=== PATIENT | female | born 1940 | race Asian ===

== ENCOUNTER → 2017-06-24 | Outpatient (CLI) | payer OTHER ==
[2017-06-24 15:03] LABS: BLOOD UREA NITROGEN 21 mg/dl (7-18); CALCIUM 8.4 mg/dl (8.5-10.1); CARBON DIOXIDE 28 mmol/L (21-32); CREATININE 1.17 mg/dl (0.60-1.20); GLUCOSE 130 mg/dl (70-99); POTASSIUM 3.6 mmol/L (3.5-5.1); SODIUM 135 mmol/L (136-145)
--- NOTE | 2017-07-02 11:38 | CODING QUERY NO DIAGNOSIS ---
: 1940 TREATMENT RENDERED WITHOUT A DIAGNOSIS To promote full compliance with coding requirements relating to patient care, physician participation is requested in all cases of direct mail coordinator uncertainty. Please assist us with providing a diagnosis/symptom for the test(s) below: A diagnosis/symptom was not documented on your Order. A valid diagnosis/symptom is required to bill all insurances. Please remember that we are unable to code a diagnosis of rule out, probable, possible, questionable, or suspected. Need original physician order. Tests that require a diagnosis: DOS: 06/24/17 * Basic Metabolic DIAGNOSIS: Provider Signature: Date: Thank you Hilda [facility] Information Management Once completed, please kindly fax back to [phone] For questions please call [phone]
== END | disposition home or self-care (01) ==
LOC: C.LABSPEC 14:42
DX: Z01.89 Encounter for other specified special examinations (principal)

== ENCOUNTER → 2017-08-26 | Outpatient (CLI) | payer OTHER | END | disposition home or self-care (01) | LOC: C.MAMM 15:25 | PROVIDERS: ATTEND Family Medicine | DX: M81.0 Age-related osteoporosis without current pathological fracture (principal); M85.851 Other specified disorders of bone density and structure, right thigh; M85.852 Other specified disorders of bone density and structure, left thigh ==

== ENCOUNTER → 2017-08-27 | Outpatient (CLI) | payer OTHER ==
--- NOTE | 2017-08-27 09:22 | DIAGNOSTIC IMAGING REPORT ---
R HAND MIN 3 VIEWS ROUTINE CLINICAL HISTORY: SEASONAL ALLERGIES pain COMPARISON: None. DISCUSSION: Considerable degenerative change of the distal interphalangeal joints of the first through third fingers. Mild degenerative change of the remaining osseous structures. Mild degenerative change of the radiocarpal and intercarpal joints. There is no evidence for soft tissue swelling. IMPRESSION: Considerable degenerative change of the first through third distal interphalangeal joints. Mild degenerative change of all remaining osseous structures. The appearance suggests osteoarthritic change. The above report was generated using voice recognition software. It may contain grammatical, syntax or spelling errors. Electronically signed by: Washington Frausto M.D. 08/27/2017 9:21 AM Dictated Date/Time: 08/27/2017 9:16 AM
--- NOTE | 2017-08-27 09:25 | DIAGNOSTIC IMAGING REPORT ---
L HAND MIN 3 VIEWS ROUTINE CLINICAL HISTORY: SEASONAL ALLERGIES pain COMPARISON: None. DISCUSSION: Considerable degenerative change distal interphalangeal joint of the thumb with moderate degenerative changes of the distal interphalangeal joints of the second through fifth fingers. Mild degenerative change of the remaining osseous structures throughout. Mild osteopenia. Partial degenerative subluxation of the distal phalanx of the distal phalanx of thumb in relation to the proximal. There is no evidence for soft tissue swelling. IMPRESSION: 1. Generalized degenerative change primarily of the distal interphalangeal joints. 2. Mild osteopenia. 3. Partial degenerative subluxation of the interphalangeal joint of the thumb. The above report was generated using voice recognition software. It may contain grammatical, syntax or spelling errors. Electronically signed by: Washington Frausto M.D. 08/27/2017 9:23 AM Dictated Date/Time: 08/27/2017 9:22 AM
[2017-08-27 09:31] LABS: BASO % 0.6 %; BASO ABS # 0.03 K/uL (0-0.2); EOS % 2.1 %; EOS ABS # 0.11 K/uL (0-0.5); HEMATOCRIT 37.8 % (37-47); HEMOGLOBIN 12.5 g/dL (12.0-16.0); IG# 0.01 K/uL (0.00-0.02); LYMPH % 33.1 %; LYMPH ABS # 1.77 K/uL (1.2-3.4); MEAN CELL VOLUME 99.5 fL (80-100); MEAN CORPUSCULAR HEMOGLOBIN 32.9 pg (25-34); MEAN CORPUSCULAR HGB CONC 33.1 g/dl (32-36); MEAN PLATELET VOLUME 9.4 fL (7.4-10.4); MONO ABS # 0.59 K/uL (0.11-0.59); NEUT ABS # 2.84 K/uL (1.4-6.5); PLATELET COUNT 222 K/uL (130-400); RED CELL DISTRIBUTION WIDTH CV 14.1 % (11.5-14.5); RED CELL DISTRIBUTION WIDTH SD 50.4 fL (36.4-46.3); WHITE BLOOD COUNT 5.35 K/uL (4.8-10.8)
[2017-08-27 10:05] LABS: ALBUMIN 3.8 gm/dl (3.4-5.0); ALT/SGPT 22 U/L (12-78); CREATININE 1.21 mg/dl (0.60-1.20)
[2017-08-27 10:08] LABS: ALKALINE PHOSPHATASE 74 U/L (45-117); AST/SGOT 15 U/L (15-37); TOTAL PROTEIN 7.5 gm/dl (6.4-8.2)
== END | disposition home or self-care (01) ==
LOC: C.RAD1850 08:48
PROVIDERS: ATTEND Internal Medicine Rheumatology
DX: J30.2 Other seasonal allergic rhinitis (principal)

== ENCOUNTER 2021-11-18 14:53 | Inpatient (IN) ==
--- NOTE | 2021-11-18 15:16 | Emergency Department Note ---
ED Provider Note NAME: MARILOU AGUIRRE AGE: 80 SEX: F : 1940 ARRIVES VIA: Walk-In INFORMANT: [Patient][, ] ED PROVIDER(S): [Jeramie Hodges MD] Chief Complaint: [] HPI: [] ROS: See HPI for pertinent positives and negatives. A total of 10 systems were reviewed and otherwise negative. Past medical history: See below Surgical history: See below Social history: See below Physical Exam: GENERAL: [Well appearing, well nourished,] NAD, [wearing glasses,][wearing a mask,] non-toxic. EYE EXAM: Normal conjunctiva. PERRL, no anisocoria and EOM's grossly intact w/o pain. [OROPHARYNX: Moist mucus membranes. Grossly normal dentition. [No exudate, posterior pharynx is clear, no tonsillar/uvular deviation or swelling. No cervical adenopathy, no submental, submandibular, or sublingual swelling.]] NECK: Supple, no nuchal rigidity, no adenopathy, non-tender. No signs of meningismus. [FROM of the neck with good chin to chest and neck extension. No stridor.] LUNGS: Clear to auscultation. Normal chest wall mechanics. HEART: NSR, no MRG. ABDOMEN: Abdomen soft, non-tender, normo-active bowel sounds, no masses, no rebound or guarding. BACK: No CVA TTP. SKIN: No rashes and no bruising. UPPER EXTREMITIES: Upper extremities are grossly normal. LOWER EXTREMITIES: Grossly normal, no edema. NEURO EXAM: A&O x3, cranial nerves II-XII grossly intact, normal speech, moves all 4 extremities on command w/o issue. [Good finger to nose, no drift, no sensory deficits.] Differential diagnoses: [] Course: Patient was seen and evaluated the bedside. Full history physical exam was performed. [EKG interpreted by me] [] Imaging Studies: See Below [Cardiac monitoring: An order was placed for continuous cardiac monitoring. The monitor shows a rate of [] with [] rhythm.] MDM: [] Past Med/Surg History Medical History Alzheimer disease Anorexia Dementia Generalized osteoarthritis of multiple sites Hallucinations HTN (hypertension) Osteoporosis Rheumatoid arthritis Seasonal allergies Vitamin D deficiency Family History Sister Dementia Social History Smoking Status: Never smoker Hx Alcohol Use: No Feels Safe at Home: Yes Allergies Allergies Allergy/AdvReac Type Severity Reaction Status Date / Time No Known Drug Allergies Allergy Unknown Unknown Uncoded 11/18/21 16:19 Home Meds Home Medications Medication Instructions Recorded Confirmed amlodipine 5 mg tablet 5 mg PO QAM PRN 08/18/19 11/18/21 aspirin 81 mg tablet,delayed 81 mg PO DAILY 08/18/19 11/18/21 release atorvastatin 10 mg tablet 10 mg PO DAILY 08/18/19 11/18/21 levocetirizine 5 mg tablet 5 mg PO DAILY 08/18/19 11/18/21 losartan 50 mg-hydrochlorothiazide 1 tab PO DAILY PRN 08/18/19 11/18/21 12.5 mg tablet metoprolol succinate 50 mg 50 mg PO DAILY 08/18/19 11/18/21 tablet,extended release 24 hr folic acid 1 mg tablet 1 mg PO DAILY 11/18/21 11/18/21 memantine 28 mg capsule 28 mg PO HS 11/18/21 11/18/21 sprinkle,extended release 24hr mirtazapine 15 mg tablet 15 mg PO HS 11/18/21 11/18/21 quetiapine 200 mg tablet 200 mg PO HS 11/18/21 11/18/21 quetiapine 50 mg tablet,extended 50 mg PO QAM 11/18/21 11/18/21 release 24 hr Previous Rx's Medication Instructions Recorded food supplemt, lactose-reduced 1 ea PO DAILY #5688 ml 11/21/20 (Ensure High Protein) pimavanserin 10 mg tablet 10 mg PO DAILY #90 tab 02/15/21 (Nuplazid) rivastigmine tartrate 1.5 mg 1.5 mg PO BID 90 Days #180 cap 02/15/21 capsule venlafaxine 150 mg 150 mg PO DAILY #90 cap 02/15/21 capsule,extended release 24 hr Results & Data (ED) Vital Signs Vital Signs - 24 hr 11/18/21 14:53 11/18/21 14:56 Temperature 36.5 C Temperature Source Temporal Artery Scan Pulse Rate 79 Respiratory Rate 18 Respiratory Effort / Characteristics Non-Labored Respiratory Depth Normal Normal Blood Pressure 149/86 H Blood Pressure Mean 107 Pulse Oximetry 94 Oxygen Delivery Method Room Air Room Air Sepsis Recent Fever Within 48 Hours No Sepsis New/Unexplained Change in Mental Status No Sepsis Action Taken by Nursing No Action Required Home Medications Current Medication List: was personally reviewed by me Laboratory Data Result diagrams: 11/18/21 16:16 11/18/21 16:16 Administered Medications Morphine Sulfate (Morphine Sulfate 2 Mg/Ml Carp) 2 mg IV Q1H PRN PRN Reason: Moderate Pain (Rating 3,4,5,6) Stop: 12/02/21 15:21 Last Admin: 11/18/21 15:40 Dose: 2 mg Documented by: [id number] Imaging Data Radiologist's Impression: Hip/Pelvis X-Ray 11/18/21 15:22 XR hip LT 2V w pelvis CLINICAL HISTORY: L hip pain. Pain COMPARISON STUDY: No previous studies for comparison. TECHNIQUE: Pelvis and 2 left hip views FINDINGS: Bones: There is evidence for a transcervical fracture of the left femoral neck. The remaining bones are intact. There is no lytic or blastic lesion. Joints: The femoral head maintains its anatomic position within the acetabulum. There is coxa varus deformity present. Soft tissues: There is no focal soft tissue abnormality. There is no radiopaque foreign body. IMPRESSION: 1. Transcervical fracture of the left femoral neck with coxa varus deformity. ACT 112: Negative or not required by law. Electronically signed by: Kirill Maldonado M.D. 11/18/2021 4:18 PM Discharge Plan Forms Stand Alone Forms: My [facility] Prescriptions Prescriptions: No Action losartan-hydrochlorothiazide 50-12.5 mg tablet 1 tab PO DAILY PRN (Reason: Hypertension) RF: 0 amlodipine 5 mg tablet 5 mg PO QAM PRN (Reason: Hypertension) RF: 0 metoprolol succinate 50 mg tablet extended release 24 hr 50 mg PO DAILY RF: 0 atorvastatin 10 mg tablet 10 mg PO DAILY RF: 0 aspirin 81 mg tablet,delayed release (DR/EC) 81 mg PO DAILY RF: 0 levocetirizine 5 mg tablet 5 mg PO DAILY RF: 0 venlafaxine 150 mg capsule,extended release 24hr 150 mg PO DAILY Qty: 90 RF: 3 Nuplazid 10 mg tablet 10 mg PO DAILY Qty: 90 RF: 1 rivastigmine tartrate 1.5 mg capsule 1.5 mg PO BID 90 Days Qty: 180 RF: 1 Ensure High Protein Liquid 1 ea PO DAILY Qty: 5688 RF: 6 memantine 28 mg capsule,sprinkle,ER 24hr 28 mg PO HS RF: 0 folic acid 1 mg tablet 1 mg PO DAILY RF: 0 quetiapine 50 mg tablet extended release 24 hr 50 mg PO QAM RF: 0 mirtazapine 15 mg tablet 15 mg PO HS RF: 0 quetiapine 200 mg tablet 200 mg PO HS RF: 0 Referrals Referrals: Marcin Villanueva [Primary Care Provider] -
[2021-11-18] MEDS: MoRPHine SULFATE 2 MG/ML CARP IV PRN ×4 (15:40→23:21)
--- NOTE | 2021-11-18 16:20 | XRay Report ---
XR hip LT 2V w pelvis CLINICAL HISTORY: L hip pain. Pain COMPARISON STUDY: No previous studies for comparison. TECHNIQUE: Pelvis and 2 left hip views FINDINGS: Bones: There is evidence for a transcervical fracture of the left femoral neck. The remaining bones a re intact. There is no lytic or blastic lesion. Joints: The femoral head maintains its anatomic position within the acetabulum. There is coxa varus d eformity present. Soft tissues: There is no focal soft tissue abnormality. There is no radiopaque foreign body. IMPRESSION: 1. Transcervical fracture of the left femoral neck with coxa varus deformity. ACT 112: Negative or not required by law. Electronically signed by: Kirill Maldonado M.D. 11/18/2021 4:18 PM
[2021-11-18 16:35] LABS: Basophils # (auto) 0.01 K/uL (0-0.2); Basophils % (auto) 0.1 %; Eosinophils % (auto) 0.9 %; Hematocrit (blood only) 33.5 % (37-47); Immature Granulocytes # (auto) 0.03 K/uL (0.00-0.02); Immature Granulocytes % (auto) 0.3 %; Mean Corpuscular Hemoglobin 31.3 pg (25-34); Mean Corpuscular Hgb Conc 32.8 g/dL (32-36); Mean Corpuscular Volume 95.4 fL (80-100); Mean Platelet Volume 9.5 fL (7.4-10.4); Monocytes # (auto) 0.85 K/uL (0.11-0.59); Monocytes % (auto) 7.8 %; Neutrophils # (auto) 8.76 K/uL (1.4-6.5); Neutrophils % (auto) 79.9 %; Platelet Count 266 K/uL (130-400); RDW Coefficient of Variation 13.8 % (11.5-14.5); RDW Standard Deviation 48.1 fL (36.4-46.3); Red Blood Count 3.51 M/uL (4.2-5.4); White Blood Count 10.95 K/uL (4.8-10.8)
[2021-11-18 16:49] LABS: INR 0.9 (0.9-1.1); Partial Thromboplastin Ratio 0.8; Partial Thromboplastin Time 22.8 Seconds (21.0-31.0); Prothrombin Time 9.9 Seconds (9.0-12.0)
[2021-11-18 16:56] LABS: Alanine Aminotransferase 27 U/L (7-52); Albumin Globulin Ratio 1.1 (0.9-2); Alkaline Phosphatase 99 U/L (34-104); Anion Gap 8 (3-11); Aspartate Aminotransferase 25 U/L (13-39); BUN Creatinine Ratio 35.3 (10-20); Bilirubin,Total 0.4 mg/dl (0.2-1.0); Blood Urea Nitrogen 36 mg/dl (6-23); Calcium 9.4 mg/dl (8.5-10.1); Carbon Dioxide 27 mmol/L (21-32); Chloride 105 mmol/L (98-107); Est GFR (African American) 59.3 ml/min; Est GFR (Non-African American) 51.2 ml/min; Globulin 3.6 gm/dl (2.5-4.0); Glucose 88 mg/dl (70-99(Fasting)); Potassium 3.9 mmol/L (3.5-5.1); Sodium 140 mmol/L (136-145); Total Protein 7.6 gm/dl (6.0-8.3)
--- NOTE | 2021-11-18 17:07 | History & Physical Report ---
Date of Service November 18, 2021 Assessment & Plan (1) Closed left hip fracture: Plan: Mrs. Stratton is an 80 year old female with history of osteoporosis, dementia, rheumatoid arthritis, HTN and dementia admitted following a fall where she sustained a left hip fracture. 1. closed left hip fracture. transcervical fracture of the left femoral neck - transcervical facture of the left femoral neck - received 2mg IV morphine in the ED - pain control with 2mg IV morphine q4h - NPO for possible surgical intervention tomorrow. EKG done and reviewed. - appreciate orthopedic recommendations - PT/OT 2. osteoporosis - last DEXA in 2018 consistent with osteoporosis. No hx of frgaility fracture until now. - was previously on Prolia, but last dose was > 2 years ago - vitamin D level with AM blood work, replete if insufficient or deficient (Vitamin D level in December 2020 was 70) - she probably needs to resume anti-fracture medication post-hospitalization--was following with [facility] rheumatology for her osteoporosis. 3. dementia - followed by psychiatry in the outpatient setting (Dr. Stewart Madrigal) - continue home medications: memantine, venlafaxine 150mg daily, quetiapine ER 50mg, rivastigmine 1.5mg 4. HTN. - home medications: amlodipine 5mg, metoprolol ER 25mg, HCTZ-losartan 12.5-50mg - per son, they check her blood pressure and give medications based on what her blood pressure readings are at home - most recently, BPs have been on the low side so he has not been giving the amlodipine and HCTZ-losartan. - Will hold these in the hospital for now, but continue metoprolol. 5. rheumatoid arthritis - med list has sulfasalazine, but she has not been taking this regularly. - did not continue this for right now, but can restart in the post-operative period/as we are planning for discharge. 6. COVID--asymptomatic - positive on admission - COVID airborne precautions Dispo: pending ortho plan, PT/OT ordered for discharge planning. (2) HTN (hypertension): (3) Dementia: (4) Rheumatoid arthritis: (5) Osteoporosis: (6) COVID: History of Present Illness Chief Complaint: fall, left hip fracture Primary Care Provider: Marcin Villanueva Mrs. Stratton is an 80 year old female with history of osteoporosis, dementia, rheumatoid arthritis, HTN and dementia admitted following a fall where she sustained a left hip fracture. She lives at home with her son, his and their child. History was obtained from the son at the bedside (patient speaks Mandarian and her dementia makes it difficult to obtain an accurate history). Son heard a thud around 10am this morning. When he went upstairs, mom was on the ground. He suspects she may have fallen out of bed. He was able to get her up and she was able to partially ambulate. However, as the morning progressed, it was getting harder for her to ambulate. She is typically independent with ADLs and walks independently in the home. He does report that she tends to bump into things and will sustain small bruises here and there from that. On review of most recent Power Chart office note from November 2020, appears that patient has had a few falls per month and was in the office with concerns for needing a wheelchair due to ambulatory dysfunction. Per son, they check her blood pressure and give medications based on what her blood pressure readings are at home. Most recently, BPs have been on the low side so he has not been giving the amlodipine and HCTZ-losartan. If her blood pressure is very low, he will hold the metoprolol as well. No chest pain or noticeable exercise intolerance in the days leading up today. No changes in mental status. She does have a history of osteoporosis. DEXA in 2018 was consistent with osteoporosis. She has never had a fragility fractures that he is aware of, but on review of the notes in Power Chart, it sounds like she had a patellar fracture although unclear exactly when this happened. After the DEXA was done, she was getting Prolia injections and did not have any fractures while on Prolia. Son is not sure how many injections she had, but thinks it was more than 2. He thinks her last Prolia injection was before the COVID pandemic. He does not recall if she was ever on a bisphosphonate. Allergies Allergy/AdvReac Type Severity Reaction Status Date / Time No Known Drug Allergies Allergy Unknown Unknown Uncoded 11/18/21 16:19 Home Medications Medication Instructions Recorded Confirmed Type amlodipine 5 mg tablet 5 mg PO QAM PRN 08/18/19 11/18/21 History aspirin 81 mg tablet,delayed 81 mg PO DAILY 08/18/19 11/18/21 History release atorvastatin 10 mg tablet 10 mg PO DAILY 08/18/19 11/18/21 History levocetirizine 5 mg tablet 5 mg PO DAILY 08/18/19 11/18/21 History losartan 50 mg-hydrochlorothiazide 1 tab PO DAILY PRN 08/18/19 11/18/21 History 12.5 mg tablet metoprolol succinate 50 mg 50 mg PO DAILY 08/18/19 11/18/21 History tablet,extended release 24 hr food supplemt, lactose-reduced 1 ea PO DAILY #5688 ml 11/21/20 11/18/21 Rx (Ensure High Protein) pimavanserin 10 mg tablet 10 mg PO DAILY #90 tab 02/15/21 11/18/21 Rx (Nuplazid) rivastigmine tartrate 1.5 mg 1.5 mg PO BID 90 Days #180 cap 02/15/21 11/18/21 Rx capsule venlafaxine 150 mg 150 mg PO DAILY #90 cap 02/15/21 11/18/21 Rx capsule,extended release 24 hr folic acid 1 mg tablet 1 mg PO DAILY 11/18/21 11/18/21 History memantine 28 mg capsule 28 mg PO HS 11/18/21 11/18/21 History sprinkle,extended release 24hr mirtazapine 15 mg tablet 15 mg PO HS 11/18/21 11/18/21 History quetiapine 200 mg tablet 200 mg PO HS 11/18/21 11/18/21 History quetiapine 50 mg tablet,extended 50 mg PO QAM 11/18/21 11/18/21 History release 24 hr Past Med/Surg History Medical History (Updated 11/18/21 @ 17:46 by Esvin Carbajal DO) Alzheimer disease Anorexia Dementia Generalized osteoarthritis of multiple sites Hallucinations HTN (hypertension) Osteoporosis Rheumatoid arthritis Seasonal allergies Vitamin D deficiency Family History Sister Dementia Social History Smoking Status: Never smoker Hx Alcohol Use: No Feels Safe at Home: Yes Review of Systems Review of Systems: Per HPI Physical Exam Constitutional: WD/WN, vitals as above Eyes: PERRL, conjunctivae normal, anicteric sclerae Neck: normal visual inspection and trachea midline Respiratory: normal respiratory effort; no labored breathing Auscultation: lungs clear to auscultation bilaterally Cardiovascular: Rate/Rhythm: regular rate and regular rhythm Heart Sounds: normal S1 and normal S2 Extremities: no pedal edema Gastrointestinal (Abdomen): Inspection/Auscultation: abdomen normal to inspection and normal bowel sounds; abdomen not distended Percussion/Palpation: abdomen soft; abdomen nontender, no guarding and no hepatosplenomegaly Musculoskeletal: Hip: + deformity neurovascularly intact in the distal lower extremities. Skin: scattered ecchymosis in various stages of healing; erythematous plaque over the right medial ankle. Psychiatric: Orientation: alert and cooperative; + not oriented to place and + not oriented to time Apperance: appeared stated age Speech: normal rate/rhythm/volume of speech Results & Data Results & Data ([facility]) Vital Signs (Past 12 Hours) Vital Signs Temp Pulse Resp BP Pulse Ox 11/18/21 14:56 36.5 C 79 18 149/86 H 94 Code Status & VTE Plan Code Status DNR/DNI VTE Prophylaxis Plan VTE Prophylaxis will be ordered: Yes
[2021-11-18 19:06] LABS: Appearance Urine Cloudy (Clear); Bacteria Urine Automated 4+ (Negative); Bilirubin Urine Negative (Negative); Blood Urine Negative (Negative); Cast Urine Automated 0 /lpf (0-5); Color Urine Yellow; Glucose Urine UA Negative (Negative); Ketones Urine Negative (Negative); Leukocyte Esterase Urine Negative (Negative); Nitrite Urine Positive (Negative); Protein Urine Negative (Negative); RBC Urine Automated 0-4 /hpf (0-4); Specific Gravity Urine 1.021 (1.000-1.030); Urobilinogen Urine Negative (Negative)
--- NOTE | 2021-11-18 20:32 | Emergency Department Note ---
Impression & Plan Closed left hip fracture, COVID, Acute UTI ED Provider Note NAME: MARILOU AGUIRRE AGE: 80 SEX: F : 1940 ARRIVES VIA: Walk-In INFORMANT: Patient, ED PROVIDER(S): Jeramie Hodges MD Chief Complaint: Fall, hip pain HPI: Patient presents with son at bedside with whom the patient lives after a fall out of bed. The patient reportedly was complaining of some hip pain and was unable to be ambulatory at home. No reported additional symptoms at this time. The patient does not take any blood thinning medications other than a baby aspirin. The patient does have a known history of dementia. The majority of the history is obtained from the son at bedside. No reported complaints of headache. The patient had fallen out of bed in the son had heard a thud in the other room. She is at her virtual baseline. Does not believe that she sustained a head or neck injury. The patient has had bruising to the left hand and wrist area which is old and not from today's incident. No vomiting. The patient's not complain of any back pain or abdominal pain. No shortness of breath or chest pain. ROS: See HPI for pertinent positives and negatives. A total of 10 systems were reviewed and otherwise negative. Past medical history: See below Surgical history: See below Social history: See below Physical Exam: GENERAL: NAD, wearing a mask, non-toxic. EYE EXAM: Normal conjunctiva. PERRL, no anisocoria and EOM's grossly intact w/o pain. Head: Normocephalic atraumatic with no TTP. NECK: Supple, no nuchal rigidity, no adenopathy, non-tender. No signs of meningismus. No midline C-spine TTP. LUNGS: Clear to auscultation. Normal chest wall mechanics. HEART: NSR, no MRG. ABDOMEN: Abdomen soft, non-tender, normo-active bowel sounds, no masses, no rebound or guarding. BACK: No CVA TTP. SKIN: No rashes and no bruising. UPPER EXTREMITIES: Upper extremities are grossly normal. LOWER EXTREMITIES: Left lower extremity is shortened compared to the right, neuro intact distally, decreased range of motion of the hip secondary to pain but is able to move the ankle and toes. NEURO EXAM: A&O x3, cranial nerves II-XII grossly intact, normal speech, moves all 4 extremities on command with exception of left lower extremity secondary to pain. Differential diagnoses: Fracture, subluxation, dislocation, contusion, ligamentous injury, neurovascular, compartment syndrome, rhabdomyolysis, as well as other pathologies. Course: Patient was seen and evaluated the bedside. Full history physical exam was performed. EKG interpreted by me Normal sinus rhythm, rate of 78, normal intervals, left axis, inversion in aVL and V2. Imaging Studies: See Below Cardiac monitoring: An order was placed for continuous cardiac monitoring. The monitor shows a rate of 82 with sinus rhythm. MDM: Patient was seen due to concern for fall. I did offer her CAT scans of the head and the neck but the patient's family at bedside does not think that she requires the use as he does not think that she struck her head and that her current neurologic baseline. Do not think it unreasonable. The patient does have an obvious left lower extremity deformity but is otherwise neuro intact. I did obtain blood work along with an x-ray. Patient does have all left surgical neck fracture. I did speak with the on-call orthopedist Dr. Ramirez who is aware. I did [place] the on-call hospitalist and the patient was admitted by Dr. Carbajal. Patient has a white count of 10.9 with mild anemia with a hemoglobin of 11. Kidney function with prerenal azotemia. The patient may have a concomitant UTI. Rocephin ordered. The patient is positive for COVID. Past Med/Surg History Medical History Alzheimer disease Anorexia Dementia Generalized osteoarthritis of multiple sites Hallucinations HTN (hypertension) Osteoporosis Rheumatoid arthritis Seasonal allergies Vitamin D deficiency Family History Sister Dementia Social History Smoking Status: Never smoker Hx Alcohol Use: No Feels Safe at Home: Yes Allergies Allergies Allergy/AdvReac Type Severity Reaction Status Date / Time No Known Drug Allergies Allergy Unknown Unknown Uncoded 11/18/21 16:19 Home Meds Home Medications Medication Instructions Recorded Confirmed amlodipine 5 mg tablet 5 mg PO QAM PRN 08/18/19 11/18/21 aspirin 81 mg tablet,delayed 81 mg PO DAILY 08/18/19 11/18/21 release atorvastatin 10 mg tablet 10 mg PO DAILY 08/18/19 11/18/21 levocetirizine 5 mg tablet 5 mg PO DAILY 08/18/19 11/18/21 losartan 50 mg-hydrochlorothiazide 1 tab PO DAILY PRN 08/18/19 11/18/21 12.5 mg tablet metoprolol succinate 50 mg 50 mg PO DAILY 08/18/19 11/18/21 tablet,extended release 24 hr folic acid 1 mg tablet 1 mg PO DAILY 11/18/21 11/18/21 memantine 28 mg capsule 28 mg PO HS 11/18/21 11/18/21 sprinkle,extended release 24hr mirtazapine 15 mg tablet 15 mg PO HS 11/18/21 11/18/21 quetiapine 200 mg tablet 200 mg PO HS 11/18/21 11/18/21 quetiapine 50 mg tablet,extended 50 mg PO QAM 11/18/21 11/18/21 release 24 hr Previous Rx's Medication Instructions Recorded food supplemt, lactose-reduced 1 ea PO DAILY #5688 ml 11/21/20 (Ensure High Protein) pimavanserin 10 mg tablet 10 mg PO DAILY #90 tab 02/15/21 (Nuplazid) rivastigmine tartrate 1.5 mg 1.5 mg PO BID 90 Days #180 cap 02/15/21 capsule venlafaxine 150 mg 150 mg PO DAILY #90 cap 02/15/21 capsule,extended release 24 hr Results & Data (ED) Vital Signs Vital Signs - 24 hr 11/18/21 14:53 11/18/21 14:56 Temperature 36.5 C Temperature Source Temporal Artery Scan Pulse Rate 79 Respiratory Rate 18 Respiratory Effort / Characteristics Non-Labored Respiratory Depth Normal Normal Blood Pressure 149/86 H Blood Pressure Mean 107 Pulse Oximetry 94 Oxygen Delivery Method Room Air Room Air Sepsis Recent Fever Within 48 Hours No Sepsis New/Unexplained Change in Mental Status No Sepsis Action Taken by Nursing No Action Required Laboratory Data Result diagrams: 11/18/21 16:16 11/18/21 16:16 Lab Results 11/18/21 11/18/21 11/18/21 Range/Units 16:16 16:16 16:16 WBC 10.95 H (4.8-10.8) K/uL RBC 3.51 L (4.2-5.4) M/uL Hgb 11.0 L (12.0-16.0) g/dL Hct 33.5 L (37-47) % MCV 95.4 (80-100) fL MCH 31.3 (25-34) pg MCHC 32.8 (32-36) g/dL RDW Std Deviation 48.1 H (36.4-46.3) fL RDW Coeff of Tom 13.8 (11.5-14.5) % Plt Count 266 (130-400) K/uL MPV 9.5 (7.4-10.4) fL Immature Gran % (Auto) 0.3 % Neut % (Auto) 79.9 % Lymph % (Auto) 11.0 % Heard % (Auto) 7.8 % Eos % (Auto) 0.9 % Baso % (Auto) 0.1 % Neut # (Auto) 8.76 H (1.4-6.5) K/uL Lymph # (Auto) 1.20 (1.2-3.4) K/uL Heard # (Auto) 0.85 H (0.11-0.59) K/uL Eos # (Auto) 0.10 (0-0.5) K/uL Baso # (Auto) 0.01 (0-0.2) K/uL Immature Gran # (Auto) 0.03 H (0.00-0.02) K/uL PT 9.9 (9.0-12.0) Seconds INR 0.9 (0.9-1.1) APTT 22.8 (21.0-31.0) Seconds PTT Ratio 0.8 Sodium 140 (136-145) mmol/L Potassium 3.9 (3.5-5.1) mmol/L Chloride 105 (98-107) mmol/L Carbon Dioxide 27 (21-32) mmol/L Anion Gap 8 (3-11) BUN 36 H (6-23) mg/dl Creatinine 1.02 (0.6-1.2) mg/dl Est Cr Clr Drug Dosing Not Reportable Est GFR ( Amer) 59.3 ml/min Est GFR (Non-Af Amer) 51.2 ml/min BUN/Creatinine Ratio 35.3 H (10-20) Glucose 88 (70-99(Fasting)) mg/dl Calcium 9.4 (8.5-10.1) mg/dl Total Bilirubin 0.4 (0.2-1.0) mg/dl AST 25 (13-39) U/L ALT 27 (7-52) U/L Alkaline Phosphatase 99 (34-104) U/L Total Protein 7.6 (6.0-8.3) gm/dl Albumin 4.0 (3.4-5.0) gm/dl Globulin 3.6 (2.5-4.0) gm/dl Albumin/Globulin Ratio 1.1 (0.9-2) Urine Color Urine Appearance (Clear) Urine pH (4.5-7.5) Ur Specific [place] (1.000-1.030) Urine Protein (Negative) Urine Glucose (UA) (Negative) Urine Ketones (Negative) Urine Blood (Negative) Urine Nitrite (Negative) Urine Bilirubin (Negative) Urine Urobilinogen (Negative) Ur Leukocyte Esterase (Negative) Urine WBC (Auto) (0-5) /hpf Urine RBC (Auto) (0-4) /hpf U Hyaline Cast (Auto) (0-5) /lpf U Epithel Cells (Auto) (0-5) /lpf Urine Bacteria (Auto) (Negative) SARS-CoV-2, RNA, NAAT (NEGATIVE) 11/18/21 11/18/21 Range/Units 16:30 17:40 WBC (4.8-10.8) K/uL RBC (4.2-5.4) M/uL Hgb (12.0-16.0) g/dL Hct (37-47) % MCV (80-100) fL MCH (25-34) pg MCHC (32-36) g/dL RDW Std Deviation (36.4-46.3) fL RDW Coeff of Tom (11.5-14.5) % Plt Count (130-400) K/uL MPV (7.4-10.4) fL Immature Gran % (Auto) % Neut % (Auto) % Lymph % (Auto) % Heard % (Auto) % Eos % (Auto) % Baso % (Auto) % Neut # (Auto) (1.4-6.5) K/uL Lymph # (Auto) (1.2-3.4) K/uL Heard # (Auto) (0.11-0.59) K/uL Eos # (Auto) (0-0.5) K/uL Baso # (Auto) (0-0.2) K/uL Immature Gran # (Auto) (0.00-0.02) K/uL PT (9.0-12.0) Seconds INR (0.9-1.1) APTT (21.0-31.0) Seconds PTT Ratio Sodium (136-145) mmol/L Potassium (3.5-5.1) mmol/L Chloride (98-107) mmol/L Carbon Dioxide (21-32) mmol/L Anion Gap (3-11) BUN (6-23) mg/dl Creatinine (0.6-1.2) mg/dl Est Cr Clr Drug Dosing Est GFR ( Amer) ml/min Est GFR (Non-Af Amer) ml/min BUN/Creatinine Ratio (10-20) Glucose (70-99(Fasting)) mg/dl Calcium (8.5-10.1) mg/dl Total Bilirubin (0.2-1.0) mg/dl AST (13-39) U/L ALT (7-52) U/L Alkaline Phosphatase (34-104) U/L Total Protein (6.0-8.3) gm/dl Albumin (3.4-5.0) gm/dl Globulin (2.5-4.0) gm/dl Albumin/Globulin Ratio (0.9-2) Urine Color Yellow Urine Appearance Cloudy A (Clear) Urine pH 7.0 (4.5-7.5) Ur Specific [place] 1.021 (1.000-1.030) Urine Protein Negative (Negative) Urine Glucose (UA) Negative (Negative) Urine Ketones Negative (Negative) Urine Blood Negative (Negative) Urine Nitrite Positive A (Negative) Urine Bilirubin Negative (Negative) Urine Urobilinogen Negative (Negative) Ur Leukocyte Esterase Negative (Negative) Urine WBC (Auto) 1-5 (0-5) /hpf Urine RBC (Auto) 0-4 (0-4) /hpf U Hyaline Cast (Auto) 0 (0-5) /lpf U Epithel Cells (Auto) 5-10 H (0-5) /lpf Urine Bacteria (Auto) 4+ H (Negative) SARS-CoV-2, RNA, NAAT POSITIVE A* (NEGATIVE) Administered Medications Morphine Sulfate (Morphine Sulfate 2 Mg/Ml Carp) 2 mg IV Q1H PRN PRN Reason: Moderate Pain (Rating 3,4,5,6) Stop: 12/02/21 15:21 Last Admin: 11/18/21 17:44 Dose: 2 mg Documented by: [id number] Admin: 11/18/21 15:40 Dose: 2 mg Documented by: [id number] Imaging Data Radiologist's Impression: Hip/Pelvis X-Ray 11/18/21 15:22 XR hip LT 2V w pelvis CLINICAL HISTORY: L hip pain. Pain COMPARISON STUDY: No previous studies for comparison. TECHNIQUE: Pelvis and 2 left hip views FINDINGS: Bones: There is evidence for a transcervical fracture of the left femoral neck. The remaining bones are intact. There is no lytic or blastic lesion. Joints: The femoral head maintains its anatomic position within the acetabulum. There is coxa varus deformity present. Soft tissues: There is no focal soft tissue abnormality. There is no radiopaque foreign body. IMPRESSION: 1. Transcervical fracture of the left femoral neck with coxa varus deformity. ACT 112: Negative or not required by law. Electronically signed by: Kirill Maldonado M.D. 11/18/2021 4:18 PM Discharge Plan Visit Data Chief Complaint: Hip Pain Stated Complaint: LEFT HIP PAIN, FALL ED Provider: Jeramie Hodges Discharge Problem: Closed left hip fracture, COVID, Acute UTI Patient Disposition: Admitted As Inpatient Forms Stand Alone Forms: [facility] Prescriptions Prescriptions: No Action losartan-hydrochlorothiazide 50-12.5 mg tablet 1 tab PO DAILY PRN (Reason: Hypertension) RF: 0 amlodipine 5 mg tablet 5 mg PO QAM PRN (Reason: Hypertension) RF: 0 metoprolol succinate 50 mg tablet extended release 24 hr 50 mg PO DAILY RF: 0 atorvastatin 10 mg tablet 10 mg PO DAILY RF: 0 aspirin 81 mg tablet,delayed release (DR/EC) 81 mg PO DAILY RF: 0 levocetirizine 5 mg tablet 5 mg PO DAILY RF: 0 venlafaxine 150 mg capsule,extended release 24hr 150 mg PO DAILY Qty: 90 RF: 3 Nuplazid 10 mg tablet 10 mg PO DAILY Qty: 90 RF: 1 rivastigmine tartrate 1.5 mg capsule 1.5 mg PO BID 90 Days Qty: 180 RF: 1 Ensure High Protein Liquid 1 ea PO DAILY Qty: 5688 RF: 6 memantine 28 mg capsule,sprinkle,ER 24hr 28 mg PO HS RF: 0 folic acid 1 mg tablet 1 mg PO DAILY RF: 0 quetiapine 50 mg tablet extended release 24 hr 50 mg PO QAM RF: 0 mirtazapine 15 mg tablet 15 mg PO HS RF: 0 quetiapine 200 mg tablet 200 mg PO HS RF: 0 Referrals Referrals: Marcin Villanueva [Primary Care Provider] -
[2021-11-18] MEDS ORDERED: cefTRIAXone SODIUM 2,000 MG/70 ML BAG IV STA (20:36)
[2021-11-18] MEDS ORDERED: ACETAMINOPHEN 325 MG TAB PO PRN (22:27)
[2021-11-18] MEDS ORDERED: ONDANSETRON INJ 2 MG/ML 2 ML VIAL IV PRN (22:27)
[2021-11-18] MEDS: RIVASTIGMINE TARTRATE 1.5 MG CAP PO SCH (23:21)
[2021-11-19] MEDS: MoRPHine SULFATE 2 MG/ML CARP IV PRN ×3 (04:28→19:34)
[2021-11-19 06:18] LABS: Basophils # (auto) 0.01 K/uL (0-0.2); Basophils % (auto) 0.1 %; Eosinophils # (auto) 0.13 K/uL (0-0.5); Eosinophils % (auto) 1.4 %; Hematocrit (blood only) 33.5 % (37-47); Hemoglobin 11.3 g/dL (12.0-16.0); Immature Granulocytes # (auto) 0.01 K/uL (0.00-0.02); Immature Granulocytes % (auto) 0.1 %; Lymphocytes # (auto) 0.88 K/uL (1.2-3.4); Lymphocytes % (auto) 9.6 %; Mean Corpuscular Hemoglobin 31.5 pg (25-34); Mean Corpuscular Hgb Conc 33.7 g/dL (32-36); Mean Corpuscular Volume 93.3 fL (80-100); Mean Platelet Volume 9.5 fL (7.4-10.4); Monocytes # (auto) 0.82 K/uL (0.11-0.59); Neutrophils # (auto) 7.27 K/uL (1.4-6.5); Neutrophils % (auto) 79.8 %; Platelet Count 254 K/uL (130-400); RDW Coefficient of Variation 13.5 % (11.5-14.5); RDW Standard Deviation 46.6 fL (36.4-46.3); Red Blood Count 3.59 M/uL (4.2-5.4); White Blood Count 9.12 K/uL (4.8-10.8)
[2021-11-19 06:27] LABS: INR 0.9 (0.9-1.1)
[2021-11-19 06:51] LABS: Alanine Aminotransferase 24 U/L (7-52); Albumin Globulin Ratio 1.2 (0.9-2); Alkaline Phosphatase 97 U/L (34-104); Anion Gap 9 (3-11); Aspartate Aminotransferase 21 U/L (13-39); BUN Creatinine Ratio 33.8 (10-20); Bilirubin,Total 0.4 mg/dl (0.2-1.0); Blood Urea Nitrogen 26 mg/dl (6-23); Calcium 9.1 mg/dl (8.5-10.1); Carbon Dioxide 27 mmol/L (21-32); Chloride 103 mmol/L (98-107); Est GFR (African American) 83.3 ml/min; Est GFR (Non-African American) 71.9 ml/min; Globulin 3.4 gm/dl (2.5-4.0); Glucose 103 mg/dl (70-99(Fasting)); Potassium 3.6 mmol/L (3.5-5.1); Sodium 139 mmol/L (136-145); Total Protein 7.4 gm/dl (6.0-8.3)
--- NOTE | 2021-11-19 07:10 | Hospitalist Progress Note ---
Date of Service November 19, 2021 Assessment & Plan (1) Closed left hip fracture: Plan: Mrs. Stratton is an 80 year old female with history of osteoporosis, dementia, rheumatoid arthritis, HTN and dementia admitted following a fall where she sustained a left hip fracture. 1. closed left hip fracture / transcervical fracture of the left femoral neck - transcervical facture of the left femoral neck - pain control with 2mg IV morphine q4h - maintain NPO for surgical correction. EKG done and reviewed. - appreciate orthopedic consultation - PT/OT 2. osteoporosis - last DEXA in 2017 consistent with osteoporosis. No hx of fragility fracture until now. - was previously on Prolia, but last dose was > 2 years ago - vitamin D level with AM blood work, replete if insufficient or deficient (Vitamin D level in December 2020 was 70) - she probably needs to resume anti-fracture medication post-hospitalization--was following with [facility] rheumatology for her osteoporosis. 3. dementia - followed by psychiatry in the outpatient setting (Dr. Stewart Madrigal) - continue home medications: memantine, venlafaxine 150mg daily, quetiapine ER 50mg, rivastigmine 1.5mg 4. HTN. - home medications: amlodipine 5mg, metoprolol ER 25mg, HCTZ-losartan 12.5-50mg - per son, they check her blood pressure and give medications based on what her blood pressure readings are at home - most recently, BPs have been on the low side so he has not been giving the amlodipine and HCTZ-losartan. - Will hold these in the hospital for now, but continue metoprolol. 5. rheumatoid arthritis - med list has sulfasalazine, but she has not been taking this regularly. - did not continue this for right now, but can restart in the post-operative period/as we are planning for discharge. 6. COVID--asymptomatic - positive on admission - COVID airborne precautions Dispo: pending ortho plan, PT/OT ordered for discharge planning. Code: DNR/DNI PPX: SCDs Diet: NPO (2) HTN (hypertension): (3) Dementia: (4) Rheumatoid arthritis: (5) Osteoporosis: (6) COVID: Admission and Anticipated Discharge Date Admission Date: November 18, 2021 Supervising Physician Co-Signing Physician Notes resting in bed, reaching into the air some vitals noted nad breathing appears unlabored skin without pallor Age-related osteoporosis w/ current pathologic fracture of left femur - pain control, supportive care, for OR (+) urine culture - ?symptoms. did get 1 dose rocephin. given difficulty guaging symptoms will treat for short course covid - appears asymptomatic otherwise as above Subjective NAEO. Review of Systems Review of Systems: as per HPI Physical Exam Physical Exam: General: 80-year old female who is alert, oriented, and appears in no acute distress. HEENT: NCAT. - Eyes - Sclera are white, anicteric, and without injection. - Mouth - MMM - Neck - supple, no appreciable JVD Cardiac: Normal rate and regular rhythm; S1 and S2 present with no murmurs, rubs, or gallops. Pulmonary: Good respiratory effort with symmetric expansion of the chest. No use of accessory muscles. Lungs were clear to auscultation bilaterally with no crackles or wheezes. Abdominal: Normoactive bowel sounds. Abdomen was soft, nondistended, and non- tender to palpation. Extremities: Upper and lower extremities are warm and well perfused. Ankle strength 5/5 bilaterally. DP pulses 2+ bilaterally. Results & Data Results & Data ([facility]) Vital Signs (Past 12 Hours) Vital Signs Temp Pulse Pulse Resp BP BP Pulse Ox 11/18/21 22:30 36.6 C 77 18 153/84 H 96 11/18/21 22:00 76 17 11/18/21 21:50 75 21 11/18/21 21:40 81 17 11/18/21 21:30 75 15 122/71 11/18/21 21:00 75 23 151/81 H 11/18/21 20:30 77 17 165/96 H 11/18/21 20:00 76 19 151/79 H 95 11/18/21 19:30 79 20 162/116 H 92 Resident Activity Tracking Resident Involvement: Resident Care Provided Care Provided: Adult Hospital Medicine (1) Closed left hip fracture Encounter type: initial encounter Qualified Code(s): S72.002A - Fracture of unspecified part of neck of left femur, initial encounter for closed fracture
[2021-11-19] MEDS: ATORVASTATIN 10 MG TAB PO SCH (07:33)
[2021-11-19] MEDS: FOLIC ACID 1 MG TAB PO SCH (07:33)
[2021-11-19] MEDS: QUEtiapine FUMARATE 50 MG TABCR PO SCH ×2 (07:33→19:35)
[2021-11-19] MEDS: METOPROLOL SUCC 50MG EXT REL TAB PO SCH (07:33)
[2021-11-19] MEDS: VENLAFAXINE HCL XR 150 MG CAPXR PO SCH (07:33)
[2021-11-19] MEDS: RIVASTIGMINE TARTRATE 1.5 MG CAP PO SCH ×2 (07:33→19:35)
--- NOTE | 2021-11-19 11:12 | Orthopedic Consultation ---
Date of Consultation November 19, 2021 Assessment & Plan (1) Closed left hip fracture: Patient will require left hip cemented bipolar hemiarthroplasty. Scheduled for OR today with Dr. Ramirez -Consent obtained by son -NPO -Hold anticoagulants -Vitals and labs stable -Intra-op infection prophylaxis: 2grams Cefazolin -Obtain medical clearance -IV LR fluids -Void hr operations advisor to OR -Clip/prep left hip -TEDS/foot pumps non-operative leg intra-op -Consult case management for discharge planning. Family requesting also. Patient will likely require home health services or rehab -Plan discussed with Dr. Ramirez History of Present Illness Attending Physician: Abilio Keen DO History of Present Illness Patient is an 80-year-old female with past medical history significant for dementia, Alzheimer's, hypertension, hyperlipidemia, rheumatoid arthritis, status post right knee replacement 10 years ago, left knee patellar fracture 2016. Patient speaks Mandarin and an interpreter and translator was used during today's visit. However no history was provided today from the patient due to mentation. History was provided from patient's son and iwzyexod-tp-lip via phone call. Yesterday morning the patient had fallen from her bed to her floor. Her qgceqmys-ib-hfj reports that she stated her left hip hurt but she was still able to walk. For half the day she sat on the couch and still complained of pain so they brought her into the emergency department. Work-up was done and patient was found to have a left femoral neck fracture. The patient's family reports that she was walking on her own prior to her fall and was able to care for herself, including going to the bathroom by herself. The [id number] stated that she does have a walker but she never remembered to use it. She lives at home with her son and his . She does not require any stairs at their house. Her plwexzdx-np-smn says that she had a knee replacement 10 years ago in [facility] ([facility] and has not had any major issues since. She fractured her left patella in 2017. She was seen [place] [facility] and was treated conservatively. Nofcddwq-qc-yrd states she still has some difficulty walking from the previous fracture. She is on 81 mg aspirin daily. She has been n.p.o. Wnvzhymk-xa-ioh reports no known drug allergies. Allergies Allergy/AdvReac Type Severity Reaction Status Date / Time No Known Allergies Allergy Verified 11/18/21 22:38 Home Medications Medication Instructions Recorded Confirmed Type amlodipine 5 mg tablet 5 mg PO QAM PRN 08/18/19 11/18/21 History aspirin 81 mg tablet,delayed 81 mg PO DAILY 08/18/19 11/18/21 History release atorvastatin 10 mg tablet 10 mg PO DAILY 08/18/19 11/18/21 History levocetirizine 5 mg tablet 5 mg PO DAILY 08/18/19 11/18/21 History losartan 50 mg-hydrochlorothiazide 1 tab PO DAILY PRN 08/18/19 11/18/21 History 12.5 mg tablet metoprolol succinate 50 mg 50 mg PO DAILY 08/18/19 11/18/21 History tablet,extended release 24 hr food supplemt, lactose-reduced 1 ea PO DAILY #5688 ml 11/21/20 11/18/21 Rx (Ensure High Protein) pimavanserin 10 mg tablet 10 mg PO DAILY #90 tab 02/15/21 11/18/21 Rx (Nuplazid) rivastigmine tartrate 1.5 mg 1.5 mg PO BID 90 Days #180 cap 02/15/21 11/18/21 Rx capsule venlafaxine 150 mg 150 mg PO DAILY #90 cap 02/15/21 11/18/21 Rx capsule,extended release 24 hr folic acid 1 mg tablet 1 mg PO DAILY 11/18/21 11/18/21 History memantine 28 mg capsule 28 mg PO HS 11/18/21 11/18/21 History sprinkle,extended release 24hr mirtazapine 15 mg tablet 15 mg PO HS 11/18/21 11/18/21 History quetiapine 200 mg tablet 200 mg PO HS 11/18/21 11/18/21 History quetiapine 50 mg tablet,extended 50 mg PO QAM 11/18/21 11/18/21 History release 24 hr Patient History Medical History Alzheimer disease Anorexia Dementia Generalized osteoarthritis of multiple sites Hallucinations HTN (hypertension) Osteoporosis Rheumatoid arthritis Seasonal allergies Vitamin D deficiency Family History Sister Dementia Social History Smoking Status: Unknown if ever smoked Hx Alcohol Use: No Preferred Language: Mandarin Urdu Validation Leader Required: Yes Current Living Situation: Family Feels Safe at Home: Yes Review of Systems Review of Systems: Per HPI. Review of systems limited due to patient mentation Physical Exam Physical Exam: General: Patient is lying in bed, intermittently awake. Patient does not respond to verbal questioning. Patient has dementia and Alzheimer's Left lower extremity: Upon examination of the patient's left lower extremity t here is minor ecchymosis noted about her lateral thigh. Patient grimaces in pain upon palpation of femoral head. Her left lower extremity is shortened and internally rotated. Patient grimaces with logroll. Skin of the affected extremity is warm and pink with no signs of vascular lymphatic compromise. 2+ distal pulses are present. Neuro exam limited due to patient mentation. She is able to wiggle her toes. Results & Data ([facility]) Vital Signs (Past 12 Hours) Vital Signs Temp Pulse Resp BP Pulse Ox 11/19/21 07:37 36.6 C 89 22 149/84 H 97 Laboratory Results 11/19/21 11/19/21 11/19/21 Range/Units 05:49 05:49 05:49 WBC (4.8-10.8) K/uL RBC (4.2-5.4) M/uL Hgb (12.0-16.0) g/dL Hct (37-47) % MCV (80-100) fL MCH (25-34) pg MCHC (32-36) g/dL RDW Std Deviation (36.4-46.3) fL RDW Coeff of Tom (11.5-14.5) % Plt Count (130-400) K/uL MPV (7.4-10.4) fL Immature Gran % (Auto) % Neut % (Auto) % Lymph % (Auto) % [place] % (Auto) % Eos % (Auto) % Baso % (Auto) % Neut # (Auto) (1.4-6.5) K/uL Lymph # (Auto) (1.2-3.4) K/uL [place] # (Auto) (0.11-0.59) K/uL Eos # (Auto) (0-0.5) K/uL Baso # (Auto) (0-0.2) K/uL Immature Gran # (Auto) (0.00-0.02) K/uL PT 10.0 (9.0-12.0) Seconds INR 0.9 (0.9-1.1) APTT (21.0-31.0) Seconds PTT Ratio Sodium 139 (136-145) mmol/L Potassium 3.6 (3.5-5.1) mmol/L Chloride 103 (98-107) mmol/L Carbon Dioxide 27 (21-32) mmol/L Anion Gap 9 (3-11) BUN 26 H (6-23) mg/dl Creatinine 0.77 (0.6-1.2) mg/dl Est Cr Clr Drug Dosing Not Reportable Est GFR ( Amer) 83.3 ml/min Est GFR (Non-Af Amer) 71.9 ml/min BUN/Creatinine Ratio 33.8 H (10-20) Glucose 103 H (70-99(Fasting)) mg/dl Calcium 9.1 (8.5-10.1) mg/dl Total Bilirubin 0.4 (0.2-1.0) mg/dl AST 21 (13-39) U/L ALT 24 (7-52) U/L Alkaline Phosphatase 97 (34-104) U/L Total Protein 7.4 (6.0-8.3) gm/dl Albumin 4.0 (3.4-5.0) gm/dl Globulin 3.4 (2.5-4.0) gm/dl Albumin/Globulin Ratio 1.2 (0.9-2) 25-OH Vitamin D Total 65.2 (30-100) ng/ml Urine Color Urine Appearance (Clear) Urine pH (4.5-7.5) Ur Specific [place] (1.000-1.030) Urine Protein (Negative) Urine Glucose (UA) (Negative) Urine Ketones (Negative) Urine Blood (Negative) Urine Nitrite (Negative) Urine Bilirubin (Negative) Urine Urobilinogen (Negative) Ur Leukocyte Esterase (Negative) Urine WBC (Auto) (0-5) /hpf Urine RBC (Auto) (0-4) /hpf U Hyaline Cast (Auto) (0-5) /lpf U Epithel Cells (Auto) (0-5) /lpf Urine Bacteria (Auto) (Negative) SARS-CoV-2, RNA, NAAT (NEGATIVE) 11/19/21 11/18/21 11/18/21 Range/Units 05:49 17:40 16:30 WBC 9.12 (4.8-10.8) K/uL RBC 3.59 L (4.2-5.4) M/uL Hgb 11.3 L (12.0-16.0) g/dL Hct 33.5 L (37-47) % MCV 93.3 (80-100) fL MCH 31.5 (25-34) pg MCHC 33.7 (32-36) g/dL RDW Std Deviation 46.6 H (36.4-46.3) fL RDW Coeff of Tom 13.5 (11.5-14.5) % Plt Count 254 (130-400) K/uL MPV 9.5 (7.4-10.4) fL Immature Gran % (Auto) 0.1 % Neut % (Auto) 79.8 % Lymph % (Auto) 9.6 % [place] % (Auto) 9.0 % Eos % (Auto) 1.4 % Baso % (Auto) 0.1 % Neut # (Auto) 7.27 H (1.4-6.5) K/uL Lymph # (Auto) 0.88 L (1.2-3.4) K/uL [place] # (Auto) 0.82 H (0.11-0.59) K/uL Eos # (Auto) 0.13 (0-0.5) K/uL Baso # (Auto) 0.01 (0-0.2) K/uL Immature Gran # (Auto) 0.01 (0.00-0.02) K/uL PT (9.0-12.0) Seconds INR (0.9-1.1) APTT (21.0-31.0) Seconds PTT Ratio Sodium (136-145) mmol/L Potassium (3.5-5.1) mmol/L Chloride (98-107) mmol/L Carbon Dioxide (21-32) mmol/L Anion Gap (3-11) BUN (6-23) mg/dl Creatinine (0.6-1.2) mg/dl Est Cr Clr Drug Dosing Est GFR ( Amer) ml/min Est GFR (Non-Af Amer) ml/min BUN/Creatinine Ratio (10-20) Glucose (70-99(Fasting)) mg/dl Calcium (8.5-10.1) mg/dl Total Bilirubin (0.2-1.0) mg/dl AST (13-39) U/L ALT (7-52) U/L Alkaline Phosphatase (34-104) U/L Total Protein (6.0-8.3) gm/dl Albumin (3.4-5.0) gm/dl Globulin (2.5-4.0) gm/dl Albumin/Globulin Ratio (0.9-2) 25-OH Vitamin D Total (30-100) ng/ml Urine Color Yellow Urine Appearance Cloudy A (Clear) Urine pH 7.0 (4.5-7.5) Ur Specific [place] 1.021 (1.000-1.030) Urine Protein Negative (Negative) Urine Glucose (UA) Negative (Negative) Urine Ketones Negative (Negative) Urine Blood Negative (Negative) Urine Nitrite Positive A (Negative) Urine Bilirubin Negative (Negative) Urine Urobilinogen Negative (Negative) Ur Leukocyte Esterase Negative (Negative) Urine WBC (Auto) 1-5 (0-5) /hpf Urine RBC (Auto) 0-4 (0-4) /hpf U Hyaline Cast (Auto) 0 (0-5) /lpf U Epithel Cells (Auto) 5-10 H (0-5) /lpf Urine Bacteria (Auto) 4+ H (Negative) SARS-CoV-2, RNA, NAAT POSITIVE A* (NEGATIVE) 11/18/21 11/18/21 11/18/21 Range/Units 16:16 16:16 16:16 WBC 10.95 H (4.8-10.8) K/uL RBC 3.51 L (4.2-5.4) M/uL Hgb 11.0 L (12.0-16.0) g/dL Hct 33.5 L (37-47) % MCV 95.4 (80-100) fL MCH 31.3 (25-34) pg MCHC 32.8 (32-36) g/dL RDW Std Deviation 48.1 H (36.4-46.3) fL RDW Coeff of Tom 13.8 (11.5-14.5) % Plt Count 266 (130-400) K/uL MPV 9.5 (7.4-10.4) fL Immature Gran % (Auto) 0.3 % Neut % (Auto) 79.9 % Lymph % (Auto) 11.0 % [place] % (Auto) 7.8 % Eos % (Auto) 0.9 % Baso % (Auto) 0.1 % Neut # (Auto) 8.76 H (1.4-6.5) K/uL Lymph # (Auto) 1.20 (1.2-3.4) K/uL [place] # (Auto) 0.85 H (0.11-0.59) K/uL Eos # (Auto) 0.10 (0-0.5) K/uL Baso # (Auto) 0.01 (0-0.2) K/uL Immature Gran # (Auto) 0.03 H (0.00-0.02) K/uL PT 9.9 (9.0-12.0) Seconds INR 0.9 (0.9-1.1) APTT 22.8 (21.0-31.0) Seconds PTT Ratio 0.8 Sodium 140 (136-145) mmol/L Potassium 3.9 (3.5-5.1) mmol/L Chloride 105 (98-107) mmol/L Carbon Dioxide 27 (21-32) mmol/L Anion Gap 8 (3-11) BUN 36 H (6-23) mg/dl Creatinine 1.02 (0.6-1.2) mg/dl Est Cr Clr Drug Dosing Not Reportable Est GFR ( Amer) 59.3 ml/min Est GFR (Non-Af Amer) 51.2 ml/min BUN/Creatinine Ratio 35.3 H (10-20) Glucose 88 (70-99(Fasting)) mg/dl Calcium 9.4 (8.5-10.1) mg/dl Total Bilirubin 0.4 (0.2-1.0) mg/dl AST 25 (13-39) U/L ALT 27 (7-52) U/L Alkaline Phosphatase 99 (34-104) U/L Total Protein 7.6 (6.0-8.3) gm/dl Albumin 4.0 (3.4-5.0) gm/dl Globulin 3.6 (2.5-4.0) gm/dl Albumin/Globulin Ratio 1.1 (0.9-2) 25-OH Vitamin D Total (30-100) ng/ml Urine Color Urine Appearance (Clear) Urine pH (4.5-7.5) Ur Specific [place] (1.000-1.030) Urine Protein (Negative) Urine Glucose (UA) (Negative) Urine Ketones (Negative) Urine Blood (Negative) Urine Nitrite (Negative) Urine Bilirubin (Negative) Urine Urobilinogen (Negative) Ur Leukocyte Esterase (Negative) Urine WBC (Auto) (0-5) /hpf Urine RBC (Auto) (0-4) /hpf U Hyaline Cast (Auto) (0-5) /lpf U Epithel Cells (Auto) (0-5) /lpf Urine Bacteria (Auto) (Negative) SARS-CoV-2, RNA, NAAT (NEGATIVE) Diagnostic Findings XR hip LT 2V w pelvis CLINICAL HISTORY: L hip pain. Pain COMPARISON STUDY: No previous studies for comparison. TECHNIQUE: Pelvis and 2 left hip views FINDINGS: Bones: There is evidence for a transcervical fracture of the left femoral neck. The remaining bones are intact. There is no lytic or blastic lesion. Joints: The femoral head maintains its anatomic position within the acetabulum. There is coxa varus deformity present. Soft tissues: There is no focal soft tissue abnormality. There is no radiopaque foreign body. IMPRESSION: 1. Transcervical fracture of the left femoral neck with coxa varus deformity. (1) Closed left hip fracture Encounter type: initial encounter Qualified Code(s): S72.002A - Fracture of unspecified part of neck of left femur, initial encounter for closed fracture
[2021-11-19] MEDS ORDERED: BUPIVACAINE 0.5 % 5 MG/1 ML PF 10ML VIAL ONE (11:20)
[2021-11-19] MEDS ORDERED: SODIUM CHLORIDE 0.9% 500 ML IV SCH (12:45)
[2021-11-19] MEDS ORDERED: ORTHO JOINT ANESTHETIC ONE ×2 (12:47→14:24)
[2021-11-19] MEDS ORDERED: ceFAZolin 330 MG/ML 1 GM VIAL ONE (12:47)
[2021-11-19] MEDS ORDERED: THROMBIN FOR SOLN 20000 UNIT KIT ONE (12:48)
--- NOTE | 2021-11-19 13:03 | Billing Data ---
Date of Service November 19, 2021 Coding Level of Care Code 20962 Subseq Hosp Care Lvl 1
[2021-11-19] MEDS ORDERED: MIDAZOLAM HCL 1 MG/ML 2ML VIAL ONE (13:40)
[2021-11-19] MEDS ORDERED: LIDOCAINE 2% 2 ML VIAL/AMP(20MG/ML) INFIL ONE (13:40)
[2021-11-19] MEDS ORDERED: fentaNYL citrate 100 MCG/2 ML VIAL ONE (13:40)
[2021-11-19] MEDS ORDERED: ONDANSETRON INJ 2 MG/ML 2 ML VIAL ONE (13:41)
[2021-11-19] MEDS ORDERED: PROPOFOL IV EMULSION 10 MG/ML 20 ML VIAL IV ONE (13:41)
[2021-11-19] MEDS ORDERED: ePHEDrine sulfate 50 MG/ML AMP ONE (13:41)
[2021-11-19] MEDS ORDERED: PHENYLEPHRINE HCL 10 MG/ML VIAL ONE (13:41)
--- NOTE | 2021-11-19 14:05 | Electrocardiogram Report ---
Test Reason : Blood Pressure : / mmHG Vent. Rate : 078 BPM Atrial Rate : 078 BPM P-R Int : 154 ms QRS Dur : 082 ms QT Int : 398 ms P-R-T Axes : 022 -15 074 degrees QTc Int : 453 ms Normal sinus rhythm Septal infarct , age undetermined Abnormal ECG No previous ECGs available Confirmed by Marco Antonio Hall ([id number]) on 11/19/2021 2:05:00 PM Referred By: REFERRED SELF Confirmed By:Marco Antonio Hall
[2021-11-19] MEDS ORDERED: BUPIVACAINE 0.5 % 5 MG/1 ML MPF 30ML VIAL ONE (14:24)
[2021-11-19] MEDS ORDERED: TRANEXAMIC ACID / 0.7% NACL 1000MG/100ML BAG IV ONE (14:28)
[2021-11-19] MEDS ORDERED: fentaNYL citrate 100 MCG/2 ML VIAL IV PRN (15:17)
[2021-11-19] MEDS ORDERED: ATROPINE SULFATE 0.1 MG/ML 10ML SYR IV PRN (15:17)
[2021-11-19] MEDS ORDERED: ePHEDrine sulfate 50 MG/ML AMP IV PRN (15:17)
[2021-11-19] MEDS ORDERED: ONDANSETRON INJ 2 MG/ML 2 ML VIAL IV PRN ×2 (15:17→16:50)
--- NOTE | 2021-11-19 15:17 | Anesthesiology Consultation ---
Date of Service November 19, 2021 Assessment & Plan Chart Review Chart Review: Acceptable Risk for Surgery and Patient NOT seen in Pre Admission Testing Consults Requested none ASA ASA4 Proposed Anesthesia Anesthesia Type: MAC Spinal Risk / Benefits Reviewed With: PT / POA / Parent / Guardian, Accepts Plan and Informed Consent Obtained History Surgery Operation Date: 11/19/21 09:00 Proposed Procedures p Left Cemented Bipolar Hemiarthroplasty - Ricco Ramirez MD Height/Weight Weight: 65 kg Allergies Allergy/AdvReac Type Severity Reaction Status Date / Time No Known Allergies Allergy Verified 11/18/21 22:38 Medications Home Medications Medication Instructions Recorded Confirmed Last Taken amlodipine 5 mg tablet 5 mg PO QAM PRN 08/18/19 11/18/21 Unknown aspirin 81 mg tablet,delayed 81 mg PO DAILY 08/18/19 11/18/21 Unknown release atorvastatin 10 mg tablet 10 mg PO DAILY 08/18/19 11/18/21 Unknown levocetirizine 5 mg tablet 5 mg PO DAILY 08/18/19 11/18/21 Unknown losartan 50 mg-hydrochlorothiazide 1 tab PO DAILY PRN 08/18/19 11/18/21 Unknown 12.5 mg tablet metoprolol succinate 50 mg 50 mg PO DAILY 08/18/19 11/18/21 Unknown tablet,extended release 24 hr food supplemt, lactose-reduced 1 ea PO DAILY #5688 ml 11/21/20 11/18/21 Unknown (Ensure High Protein) pimavanserin 10 mg tablet 10 mg PO DAILY #90 tab 02/15/21 11/18/21 Unknown (Nuplazid) rivastigmine tartrate 1.5 mg 1.5 mg PO BID 90 Days #180 cap 02/15/21 11/18/21 Unknown capsule venlafaxine 150 mg 150 mg PO DAILY #90 cap 02/15/21 11/18/21 Unknown capsule,extended release 24 hr folic acid 1 mg tablet 1 mg PO DAILY 11/18/21 11/18/21 Unknown memantine 28 mg capsule 28 mg PO HS 11/18/21 11/18/21 Unknown sprinkle,extended release 24hr mirtazapine 15 mg tablet 15 mg PO HS 11/18/21 11/18/21 Unknown quetiapine 200 mg tablet 200 mg PO HS 11/18/21 11/18/21 Unknown quetiapine 50 mg tablet,extended 50 mg PO QAM 11/18/21 11/18/21 Unknown release 24 hr Active Medications Generic Name Dose Route Start Last Admin Trade Name Freq PRN Reason Stop Dose Admin Atorvastatin Calcium 10 mg 11/19/21 09:00 11/19/21 07:33 Atorvastatin 10 Mg Tab PO 12/19/21 08:59 Not Given DAILY TANNER Folic Acid 1 mg 11/19/21 09:00 11/19/21 07:33 Folic Acid 1 Mg Tab PO 12/19/21 08:59 Not Given DAILY TANNER Sodium Chloride 500 mls @ 80 mls/hr 11/19/21 12:45 11/19/21 13:04 Nss IV 12/19/21 12:44 80 mls/hr .[id number] TANNER Administration Metoprolol Succinate 50 mg 11/19/21 09:00 11/19/21 07:33 Metoprolol Succ 50mg Ext Rel Tab PO 12/19/21 08:59 50 mg DAILY TANNER Administration Morphine Sulfate 2 mg 11/18/21 22:27 11/19/21 09:31 Morphine Sulfate 2 Mg/Ml Carp IV 12/02/21 22:26 2 mg Q4H PRN Administration Moderate Pain Quetiapine Fumarate 50 mg 11/19/21 09:00 11/19/21 07:33 Quetiapine Fumarate 50 Mg Tabcr PO 12/19/21 08:59 50 mg QAM TANNER Administration Rivastigmine Tartrate 1.5 mg 11/18/21 22:27 11/19/21 07:33 Rivastigmine Tartrate 1.5 Mg Cap PO 12/18/21 22:26 1.5 mg BID TANNER Administration Venlafaxine HCl 150 mg 11/19/21 09:00 11/19/21 07:33 Venlafaxine Hcl Xr 150 Mg Capxr PO 12/19/21 08:59 150 mg DAILY TANNER Administration NPO Date Last Intake of Fluids: 11/19/21 Time Last Intake of Fluids: 07:35 Last Intake of Fluids Comment: with pills Past Medical History Medical History Alzheimer disease Anorexia Dementia Generalized osteoarthritis of multiple sites Hallucinations HTN (hypertension) Osteoporosis Rheumatoid arthritis Seasonal allergies Vitamin D deficiency Exercise / Class Metabolic Activity II 4-5 Yardwork/Stairs/Walk up hill Past Family History Family History Sister Dementia Past Anesthesia History No Hx of Anesthesia Complications and No Family Hx of Anesthesia Complications History of PONV No Hx of PONV and No Hx of Motion Sickness Social History Smoking Status: Unknown if ever smoked Hx Alcohol Use: No Physical Exam Vital Signs Last Vital Signs Temp 36.6 C 11/19/21 07:37 Pulse 89 11/19/21 07:37 Resp 22 11/19/21 07:37 BP 149/84 H 11/19/21 07:37 Pulse Ox 97 11/19/21 07:37 ENMT Mouth: no dentition abnormality Thyromental Distance: > or= 3.5 Finger Breadths Mallampati Class: II Neck normal visual inspection Respiratory normal respiratory effort Auscultation: lungs clear to auscultation bilaterally Cardiovascular Rate/Rhythm: regular rate and regular rhythm Psychiatric dementia Testing Laboratory Results 11/19/21 05:49 11/19/21 05:49 PT 10.0 Seconds (9.0-12.0) 11/19/21 05:49 INR 0.9 (0.9-1.1) 11/19/21 05:49 APTT 22.8 Seconds (21.0-31.0) 11/18/21 16:16 Urine Color Yellow 11/18/21 17:40 Urine Appearance Cloudy (Clear) A 11/18/21 17:40 Urine pH 7.0 (4.5-7.5) 11/18/21 17:40 Ur Specific [place] 1.021 (1.000-1.030) 11/18/21 17:40 Urine Protein Negative (Negative) 11/18/21 17:40 Urine Glucose (UA) Negative (Negative) 11/18/21 17:40 Urine Ketones Negative (Negative) 11/18/21 17:40 Urine Nitrite Positive (Negative) A 11/18/21 17:40 Ur Leukocyte Esterase Negative (Negative) 11/18/21 17:40 Urine WBC (Auto) 1-5 /hpf (0-5) 11/18/21 17:40 Urine RBC (Auto) 0-4 /hpf (0-4) 11/18/21 17:40 U Hyaline Cast (Auto) 0 /lpf (0-5) 11/18/21 17:40 U Epithel Cells (Auto) 5-10 /lpf (0-5) H 11/18/21 17:40 Urine Bacteria (Auto) 4+ (Negative) H 11/18/21 17:40 11/18/21 17:40 Urine Culture - Preliminary Urine,Straight Cath Gram negative bacilli
--- NOTE | 2021-11-19 16:31 | Operative Report ---
Post Operative Report Pre & Post Diagnosis Operation Date: 11/19/21 09:00 Pre-Op Diagnosis: LEFT HIP DISPLACED FEMORAL NECK FRACTURE Post-Op Diagnosis: LEFT HIP DISPLACED FEMORAL NECK FRACTURE I identified the patient and participated in the time-out.: Yes Procedure Operation Date: 11/19/21 09:00 Actual Procedures p Left Cemented Bipolar Hemiarthroplasty(Left) - Ricco Ramirez MD Surgeon Ricco Ramirez MD Clinical Pharmacy Coordinator Ophelia Felipe MD and LUIS Hinojosa PA-C. Estimated Blood Loss 50 Findings Consistent with Post-Op Diagnosis Specimens Left femoral head Anesthesia Type Spinal MAC Complications none Disposition Disposition: Recovery Room Indications 80-year-old female presented to the emergency room yesterday with left hip pain and inability to ambulate. X-rays were done showing a displaced left femoral neck fracture. She was admitted to the internal medicine service. Orthopedics was consulted for further management. Patient was seen and examined today. She does have a medical history significant for dementia as well as a positive COVID test on admission. She is a non-Italian speaker; Sg is her ely shoshone tongue. Informed consent was obtained from the patient and her son Alek. They elected to proceed with surgery. All questions were answered. Informed consent was signed. Description of Procedure Patient was identified on the floor where her surgical site was marked. She was brought directly from the floor to operating room #1 where a spinal anesthetic was placed. She remained in the lateral decubitus position for 5 minutes to allow the spinal to set up. She was then moved over onto the operating room table and placed in the lateral decubitus position. Axillary roll was placed. All bony prominences were padded. Perioperative antibiotics were administered. She was prepped and draped in the usual sterile fashion. Prior to incision a multidisciplinary timeout was called. All in the room were in agreement. We began by making a 12 cm long incision for a posterior approach to the hip. I dissected down through subcutaneous tissues to the level of the fascia. Fascia was incised in line with the incision splitting the gluteus salvatore. Charnley bow was placed. Trochanteric bursa and fatty tissue was reflected posteriorly to expose the piriformis and short external rotators. An L-shaped capsulotomy was made to include the piriformis and short external rotators. Fracture was immediately visualized. We exposed the femoral neck down to the lesser trochanter. Femoral neck osteotomy was made using oscillating saw. Retractors were then placed inside the hip joint to expose the acetabulum. The fractured femoral head was removed with a corkscrew. This was sized on the back table to a 46. Ligamentum teres was removed with electrocautery. I then inserted the 46 sizer into the acetabulum. There was an excellent suction seal. Next we turned our attention to the femur. Box osteotome was used to remove the lateral neck. Intramedullary guide was used followed by the lateralizing reamer which would not seat. The rattail was used to remove some lateral bone. We then broached her to a size 2 [place] cemented femoral stem. We trialed with a +5 offset head. Her leg lengths were slightly too long so we redislocated and retracted with a +15 which gave us excellent symmetric leg lengths. There is no impingement in external rotation and extension. She was stable in the sleeper position. At 90 degrees of hip flexion she could be internally rotated 50 degrees before levering out of the cup. Next the trial femoral component was removed. The femoral canal was irrigated out and dried. The cement restrictor was placed down the canal. Cement was mixed on the back table. Cement was then injected and pressurized using thumb pressure. The stem was then inserted and held in approximately 25 degrees of anteversion until the cement had fully cured. Excess cement was removed. At this point the trunnion was irrigated and dried and cleaned. The real size 46 bipolar hemiarthroplasty outer shell was opened up as well as the polyethylene liner and the 28 mm inner head with a +1.5 offset. This was gently impacted onto the trunnion. The hip was atraumatically reduced. The wound was irrigated with copious amounts of dilute Betadine solution followed by sterile saline. 30 cc of half percent Marcaine was injected into the subcutaneous tissues for postoperative pain control. The piriformis short external rotators and posterior capsule were repaired using a single drill hole in the posterior aspect of the greater trochanter with the piriformis stitch coming up through the abductor tendon and the stitches tied to 1 another over the bone bridge of the greater trochanter. The fascia was run using a looped #1 PDS. The deep subcutaneous layer was closed with #1 PDS. Dermal layer was closed with 2-0 Vicryl. Dermabond and Zipline were used for the skin. Silverlon dressing was placed followed by a compressive dressing. Patient was then carefully rolled supine, hip abduction pillow was placed, and she was transferred recovery room in stable condition. Postoperative course: Patient be readmitted to the floor from the recovery room. She will be weightbearing as tolerated with posterior hip precautions. Aspirin for DVT prophylaxis is recommended. Compressive dressing will be removed tomor row and she can shower with her Silverlon dressing which should remain in place until her 2-week follow-up. I attest to the content of the Intraoperative Record and any orders documented therein. Any exceptions are noted below.
[2021-11-19] MEDS ORDERED: METOCLOPRAMIDE HCL INJ 5 MG/ML 2 ML VIAL IV PRN (16:50)
[2021-11-19] MEDS ORDERED: diphenhydrAMINE 50 MG/ML VIAL IV PRN (16:50)
[2021-11-19] MEDS ORDERED: ALUMINUM/MAGNESIUM SUSP 30 ML UDC PO PRN (16:50)
[2021-11-19] MEDS ORDERED: MAGNESIUM HYDROXIDE SUSP 30 ML UDC PO PRN (16:50)
[2021-11-19] MEDS ORDERED: bisacodyL 10 MG SUPP PR PRN (16:50)
[2021-11-19] MEDS ORDERED: NALOXONE HCL 0.4 MG/1 ML VIAL/CARP IV PRN (16:50)
--- NOTE | 2021-11-19 16:50 | Operative Report ---
Post Operative Report Pre & Post Diagnosis Operation Date: 11/19/21 09:00 Pre-Op Diagnosis: LEFT HIP FRACTURE Post-Op Diagnosis: LEFT HIP FRACTURE I identified the patient and participated in the time-out.: Yes Procedure Operation Date: 11/19/21 09:00 Actual Procedures p Left Cemented Bipolar Hemiarthroplasty(Left) - Ricco Ramirez MD Surgeon Ricco Ramirez MD Fabric Stretcher Ophelia Felipe MD and LUIS Hinojosa PA-C. Estimated Blood Loss 50 Findings Consistent with Post-Op Diagnosis Specimens femoral head Description of Procedure I was present during the entire case assisting with positioning, prepping, draping, wound retraction, wound closure, dressing and abduction pillow placement. Fellow also present. I served as an extra set of hands during the case. Please see Dr. Ramirez procedure note for specifics. I attest to the content of the Intraoperative Record and any orders documented therein. Any exceptions are noted below.
--- NOTE | 2021-11-19 16:51 | Operative Report ---
Post Operative Report Pre & Post Diagnosis Operation Date: 11/19/21 09:00 Pre-Op Diagnosis: LEFT HIP FRACTURE Post-Op Diagnosis: LEFT HIP FRACTURE I identified the patient and participated in the time-out.: Yes Procedure Operation Date: 11/19/21 09:00 Actual Procedures p Left Cemented Bipolar Hemiarthroplasty(Left) - Ricco Ramirez MD Surgeon Nahomy Ramirez MD Buttonhole Marker Ophelia Felipe MD and LUIS Hinojosa PA-C. Estimated Blood Loss 50 Findings Consistent with Post-Op Diagnosis Consistent with post op diagnosis. Specimens No specimens Description of Procedure I participated in prepping dressing and assisted Dr. Ramirez during the procedure. Please see Dr. Ramirez note. I attest to the content of the Intraoperative Record and any orders documented therein. Any exceptions are noted below.
[2021-11-19] MEDS ORDERED: amLODIPine BESYLATE 5 MG TAB PO PRN (16:53)
[2021-11-19] MEDS ORDERED: LOSARTAN/HCTZ 50/12.5MG TAB PO PRN (16:53)
--- NOTE | 2021-11-19 17:19 | XRay Report ---
XR pelvis 1-2V routine CLINICAL HISTORY: Post Surgical COMPARISON: Pelvis and left hip radiographs November 18, 2021. FINDINGS: Alignment of the left hip arthroplasty is anatomic. No periprosthetic fracture is present. There are no unexpected radiopaque foreign bodies. Foreshortening of the right femoral neck is likel y technical. Sacroiliac joints and symphysis pubis are intact. IMPRESSION: Expected findings following left hip arthroplasty. ACT 112: Negative or not required by law. Electronically signed by: Roby Krishna M.D. 11/19/2021 5:17 PM
[2021-11-19] MEDS: SODIUM CHLORIDE 0.9% 1000ML 1,000 ML IV SCH (18:29)
--- NOTE | 2021-11-19 18:33 | Anesthesiology Progress Note ---
Date of Service November 19, 2021 Anesthesia Post Procedure Vital Signs Vital Signs: Temp Pulse Pulse Pulse Resp BP BP 11/19/21 18:14 85 22 11/19/21 17:40 97.5 F L 73 20 11/19/21 17:20 97.5 F L 76 24 11/19/21 17:10 81 12 11/19/21 17:00 82 20 11/19/21 16:52 96.8 F L 79 23 11/19/21 07:37 97.9 F 89 22 11/18/21 22:30 97.9 F 77 18 153/84 H 11/18/21 22:00 76 17 11/18/21 21:50 75 21 11/18/21 21:40 81 17 11/18/21 21:30 75 15 122/71 11/18/21 21:00 75 23 151/81 H 11/18/21 20:30 77 17 165/96 H 11/18/21 20:00 76 19 151/79 H 11/18/21 19:30 79 20 162/116 H 11/18/21 19:00 72 15 171/95 H BP Pulse Ox 11/19/21 18:14 145/78 H 90 11/19/21 17:40 144/84 H 90 11/19/21 17:20 153/76 H 97 11/19/21 17:10 111/86 96 11/19/21 17:00 162/86 H 100 11/19/21 16:52 170/108 H 100 11/19/21 07:37 149/84 H 97 11/18/21 22:30 96 11/18/21 22:00 11/18/21 21:50 11/18/21 21:40 11/18/21 21:30 11/18/21 21:00 11/18/21 20:30 11/18/21 20:00 95 11/18/21 19:30 92 11/18/21 19:00 95 Pain Intensity Left Leg: Pain Intensity: 9 Transfer of Care Handoff Completed per policy Notes Mental Status: alert / awake / arousable and participated in evaluation Patient Amnestic to Procedure: Yes Nausea / Vomiting: adequately controlled Pain: adequately controlled Airway Patency, RR, SpO2: stable & adequate BP & HR: stable & adequate Hydration State: stable & adequate Neuraxial Anesthesia: was administered and sensory block is resolving Anesthetic Complications: no major complications apparent and Pt Satisfied with anesthetic care
[2021-11-19] MEDS: KETOROLAC TROMETHAMINE 15 MG/ML VIAL IV SCH ×2 (18:35→23:07)
[2021-11-19] MEDS: cefTRIAXone SODIUM 1,000 MG in DEXTROSE 5% 50 ML IV SCH (19:29)
[2021-11-19] MEDS: DOCUSATE SODIUM 100 MG CAP PO SCH (19:31)
[2021-11-19] MEDS: SENNA 8.6 MG TAB PO SCH (19:35)
[2021-11-19] MEDS: ACETAMINOPHEN 500 MG TAB PO SCH (19:35)
[2021-11-19] MEDS: MIRTAZAPINE TAB 15 MG TAB PO SCH (19:36)
[2021-11-19] MEDS: MEMANTINE HCL 10 MG TAB PO SCH (19:36)
[2021-11-19] MEDS: QUEtiapine FUMARATE 200 MG TAB PO SCH (19:37)
[2021-11-19] MEDS ORDERED: TRANEXAMIC ACID / 0.7% NACL 1,000 MG/100 ML BAG IV SCH (23:00)
[2021-11-19] MEDS: ceFAZolin 2000MG 2,000 MG/15 ML SYR IV SCH (23:03)
[2021-11-19] MEDS: [UNRECOGNIZED DRUG - REMARK] SCH (23:33)
[2021-11-19] MEDS: [UNRECOGNIZED DRUG - OTHER] SCH (23:33)
[2021-11-20] MEDS: SODIUM CHLORIDE 0.9% 1000ML 1,000 ML IV SCH (03:27)
[2021-11-20] MEDS: ceFAZolin 2000MG 2,000 MG/15 ML SYR IV SCH (06:03)
[2021-11-20] MEDS: ACETAMINOPHEN 500 MG TAB PO SCH ×3 (06:03→20:08)
[2021-11-20] MEDS: KETOROLAC TROMETHAMINE 15 MG/ML VIAL IV SCH ×2 (06:03→10:50)
--- NOTE | 2021-11-20 06:34 | Hospitalist Progress Note ---
Date of Service November 20, 2021 Assessment & Plan (1) Closed left hip fracture: Plan: Mrs. 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 # closed left hip fracture / transcervical fracture of the left femoral neck - transcervical facture of the left femoral neck -- s/p hemiarthroplasty on 11/19 - pain control -- will monitor mentation if frequent use of opioids required - ortho following -- appreciate recs - TEDS, ASA - PT, OT # delirium -- possible UTI - appreciated on exam and throughout day on 11/19 - strong h/o dementia alongside acute events, dirty UA/dehydration, post- op/anesthesia likely compounding - opt to treat with CFTX for possible UTI - monitor symptoms, pain control, delirium precautions #Anemia - on arrival, Hgb 11 -- post-operatively, dropped to around 8.8 - suspect component of post-op ABLA, dilution also likely playing a roll - difficult to assess for symptoms given delirious state - which this may also be contributing towards - recheck CBC at 1500 this afternoon - transfuse < 7 if indicated, would have to obtain consent from son - Continue ASA for now - hold if e/o persistent drop / concerns for ongoing bleed # osteoporosis - last DEXA in 2018 consistent with osteoporosis. No hx of fragility fracture until now. - was previously on Prolia, but last dose was > 2 years ago - vitamin D level with AM blood work, replete if insufficient or deficient (Vitamin D level in December 2020 was 70) - she probably needs to resume anti-fracture medication post-hospitalization--was following with [facility] rheumatology for her osteoporosis. # dementia - followed by psychiatry in the outpatient setting (Dr. Stewart Madrigal) - continue home medications: memantine, venlafaxine 150mg daily, quetiapine ER 50mg, rivastigmine 1.5mg # HTN. - home medications: amlodipine 5mg, metoprolol ER 25mg, HCTZ-losartan 12.5-50mg - per son, they check her blood pressure and give medications based on what her blood pressure readings are at home - most recently, BPs have been on the low side so he has not been giving the amlodipine and HCTZ-losartan. - Will hold these in the hospital for now, but continue metoprolol. # rheumatoid arthritis - med list has sulfasalazine, but she has not been taking this regularly. - did not continue this for right now, but can restart in the post-operative period/as we are planning for discharge. # COVID--asymptomatic - positive on admission - COVID airborne precautions Dispo: m/s; pending PT/OT Code: DNR/DNI PPX: SCDs, ASA Diet: regular (2) HTN (hypertension): (3) Dementia: (4) Rheumatoid arthritis: (5) Osteoporosis: (6) COVID: Admission and Anticipated Discharge Date Admission Date: November 18, 2021 Subjective NAEO. Tolerated surgery well with minimal reported EBL. Unable to obtain meaningful history this morning - continues to ask "where's my daughter in law" and "who are you" despite multiple attempts at reorientation. Interestingly, denies pain. Review of Systems Review of Systems: unable to obtain meaningful ROS given delirious state Physical Exam Physical Exam: General: 80-year old female who is alert only to person, frequently calling out for her daughter in law. Delirium. No pallor obviously noted. HEENT: NCAT. - Eyes - Sclera are white, anicteric, and without injection. - Mouth - MMM - Neck - supple, no appreciable JVD Cardiac: Unable to perform exam due to patient discomfort. Appears well perfused. Pulmonary: Good respiratory effort with symmetric expansion of the chest. No use of accessory muscles. Abdominal: Unable to perform exam due to patient discomfort. Extremities: Upper and lower extremities are warm and well perfused. Unable to follow commands to assess strength. Results & Data Results & Data ([place]) Vital Signs (Past 12 Hours) Vital Signs Temp Pulse Resp BP Pulse Ox 11/20/21 03:27 36.4 C L 86 18 114/64 94 11/19/21 23:00 36.5 C 82 18 98/58 L 91 11/19/21 20:29 36.6 C 77 16 99/64 L 92 11/19/21 19:39 36.7 C 76 16 97/67 L 92 11/19/21 18:40 80 22 128/76 Resident Activity Tracking Resident Involvement: Resident Care Provided Care Provided: Adult Hospital Medicine (1) Closed left hip fracture Encounter type: initial encounter Qualified Code(s): S72.002A - Fracture of unspecified part of neck of left femur, initial encounter for closed fracture
[2021-11-20] MEDS ORDERED: dexAMETHasone 4 MG TAB PO SCH (08:00)
[2021-11-20] MEDS: [UNRECOGNIZED DRUG - OTHER] SCH ×3 (08:08→22:04)
[2021-11-20] MEDS: [UNRECOGNIZED DRUG - REMARK] SCH ×3 (08:08→22:04)
[2021-11-20] MEDS: MULTIVITAMIN TAB PO SCH (08:21)
[2021-11-20] MEDS: ATORVASTATIN 10 MG TAB PO SCH (08:22)
[2021-11-20] MEDS: FOLIC ACID 1 MG TAB PO SCH (08:22)
[2021-11-20] MEDS: DOCUSATE SODIUM 100 MG CAP PO SCH ×2 (08:22→20:09)
[2021-11-20] MEDS: ASPIRIN 81 MG ECTAB PO SCH (08:22)
[2021-11-20] MEDS: METOPROLOL SUCC 50MG EXT REL TAB PO SCH (08:23)
[2021-11-20] MEDS: RIVASTIGMINE TARTRATE 1.5 MG CAP PO SCH ×2 (08:23→20:09)
[2021-11-20] MEDS: VENLAFAXINE HCL XR 150 MG CAPXR PO SCH (08:23)
[2021-11-20] MEDS: QUEtiapine FUMARATE 50 MG TABCR PO SCH (08:23)
[2021-11-20] MEDS: MEMANTINE HCL 10 MG TAB PO SCH ×2 (08:23→20:09)
[2021-11-20] MEDS: traMADol HCL 50 MG TABLET PO PRN (08:26)
[2021-11-20 08:32] LABS: Basophils # (auto) 0.01 K/uL (0-0.2); Basophils % (auto) 0.1 %; Eosinophils # (auto) 0.24 K/uL (0-0.5); Eosinophils % (auto) 2.4 %; Hematocrit (blood only) 26.9 % (37-47); Hemoglobin 8.8 g/dL (12.0-16.0); Immature Granulocytes # (auto) 0.04 K/uL (0.00-0.02); Immature Granulocytes % (auto) 0.4 %; Lymphocytes # (auto) 0.88 K/uL (1.2-3.4); Lymphocytes % (auto) 8.8 %; Mean Corpuscular Hemoglobin 30.9 pg (25-34); Mean Corpuscular Hgb Conc 32.7 g/dL (32-36); Mean Corpuscular Volume 94.4 fL (80-100); Mean Platelet Volume 9.4 fL (7.4-10.4); Monocytes # (auto) 0.81 K/uL (0.11-0.59); Monocytes % (auto) 8.1 %; Neutrophils # (auto) 8.06 K/uL (1.4-6.5); Neutrophils % (auto) 80.2 %; Platelet Count 209 K/uL (130-400); RDW Coefficient of Variation 13.9 % (11.5-14.5); RDW Standard Deviation 48.4 fL (36.4-46.3); Red Blood Count 2.85 M/uL (4.2-5.4); White Blood Count 10.04 K/uL (4.8-10.8)
[2021-11-20 08:51] LABS: Anion Gap 6 (3-11); BUN Creatinine Ratio 26.3 (10-20); Blood Urea Nitrogen 26 mg/dl (6-23); Calcium 8.4 mg/dl (8.5-10.1); Carbon Dioxide 23 mmol/L (21-32); Chloride 108 mmol/L (98-107); Est GFR (African American) 61.5 ml/min; Est GFR (Non-African American) 53.1 ml/min; Glucose 113 mg/dl (70-99(Fasting)); Potassium 3.7 mmol/L (3.5-5.1); Sodium 137 mmol/L (136-145)
--- NOTE | 2021-11-20 09:56 | Orthopedic Progress Note ---
Date of Service November 20, 2021 Assessment & Plan (1) S/P hip hemiarthroplasty: Plan: PT/OT Weightbearing as tolerated with walker assistance Abduction pillow use x6 weeks postoperatively Ice with easy wrap Pain control with p.o. medication DVT prophylaxis with teds, SCDs and aspirin Total hip precautions Will continue to follow while in house. Primary care by medicine service Patient will most likely need inpatient rehab or transfer to a half-way facility upon discharge. Follow-up with [facility] orthopedics in approximately 2 weeks. Admission and Anticipated Discharge Date Admission Date: November 18, 2021 Subjective This 80-year-old female seen today day 1 status post left hip hemiarthroplasty performed by Dr. Ramirez. Patient is in isolation due to her COVID status. This morning I removed her outer dressing. I was not able to converse with the patient due to a language barrier. Review of Systems Review of Systems: Other (Unable to obtain due to language barrier) Physical Exam Physical Exam: Left hip: Outer dressing was removed. Silverlon was intact, clean and dry. Patient was unable to perform an active straight leg raise test, however passive straight leg raise test does not cause any pain. Patient did not moan while performing a logroll test or externally rotating but slightly winced with very light passive internal hip rotation. Her peripheral pulses 2+. Her calf is soft and supple. Results & Data ([facility]) Vital Signs (Past 12 Hours) Vital Signs Temp Pulse Resp BP Pulse Ox 11/20/21 08:18 36.9 C 85 22 120/81 95 11/20/21 03:27 36.4 C L 86 18 114/64 94 11/19/21 23:00 36.5 C 82 18 98/58 L 91 Diagnostic Findings Laboratory Results WBC 10.04 K/uL (4.8-10.8) 11/20/21 07:34 RBC 2.85 M/uL (4.2-5.4) L 11/20/21 07:34 Hgb 8.8 g/dL (12.0-16.0) L 11/20/21 07:34 Hct 26.9 % (37-47) L 11/20/21 07:34 MCV 94.4 fL (80-100) 11/20/21 07:34 MCH 30.9 pg (25-34) 11/20/21 07:34 MCHC 32.7 g/dL (32-36) 11/20/21 07:34 RDW Std Deviation 48.4 fL (36.4-46.3) H 11/20/21 07:34 RDW Coeff of Tom 13.9 % (11.5-14.5) 11/20/21 07:34 Plt Count 209 K/uL (130-400) 11/20/21 07:34 MPV 9.4 fL (7.4-10.4) 11/20/21 07:34 Immature Gran % (Auto) 0.4 % 11/20/21 07:34 Neut % (Auto) 80.2 % 11/20/21 07:34 Lymph % (Auto) 8.8 % 11/20/21 07:34 [place] % (Auto) 8.1 % 11/20/21 07:34 Eos % (Auto) 2.4 % 11/20/21 07:34 Baso % (Auto) 0.1 % 11/20/21 07:34 Neut # (Auto) 8.06 K/uL (1.4-6.5) H 11/20/21 07:34 Lymph # (Auto) 0.88 K/uL (1.2-3.4) L 11/20/21 07:34 [place] # (Auto) 0.81 K/uL (0.11-0.59) H 11/20/21 07:34 Eos # (Auto) 0.24 K/uL (0-0.5) 11/20/21 07:34 Baso # (Auto) 0.01 K/uL (0-0.2) 11/20/21 07:34 Immature Gran # (Auto) 0.04 K/uL (0.00-0.02) H 11/20/21 07:34 PT 10.0 Seconds (9.0-12.0) 11/19/21 05:49 INR 0.9 (0.9-1.1) 11/19/21 05:49 APTT 22.8 Seconds (21.0-31.0) 11/18/21 16:16 PTT Ratio 0.8 11/18/21 16:16 Sodium 137 mmol/L (136-145) 11/20/21 07:34 Potassium 3.7 mmol/L (3.5-5.1) 11/20/21 07:34 Chloride 108 mmol/L (98-107) H 11/20/21 07:34 Carbon Dioxide 23 mmol/L (21-32) 11/20/21 07:34 Anion Gap 6 (3-11) 11/20/21 07:34 BUN 26 mg/dl (6-23) H 11/20/21 07:34 Creatinine 0.99 mg/dl (0.6-1.2) 11/20/21 07:34 Est Cr Clr Drug Dosing Not Reportable 11/20/21 07:34 Est GFR ( Amer) 61.5 ml/min 11/20/21 07:34 Est GFR (Non-Af Amer) 53.1 ml/min 11/20/21 07:34 BUN/Creatinine Ratio 26.3 (10-20) H 11/20/21 07:34 Glucose 113 mg/dl (70-99(Fasting)) H 11/20/21 07:34 Calcium 8.4 mg/dl (8.5-10.1) L 11/20/21 07:34 Total Bilirubin 0.4 mg/dl (0.2-1.0) 11/19/21 05:49 AST 21 U/L (13-39) 11/19/21 05:49 ALT 24 U/L (7-52) 11/19/21 05:49 Alkaline Phosphatase 97 U/L (34-104) 11/19/21 05:49 Total Protein 7.4 gm/dl (6.0-8.3) 11/19/21 05:49 Albumin 4.0 gm/dl (3.4-5.0) 11/19/21 05:49 Globulin 3.4 gm/dl (2.5-4.0) 11/19/21 05:49 Albumin/Globulin Ratio 1.2 (0.9-2) 11/19/21 05:49 25-OH Vitamin D Total 65.2 ng/ml (30-100) 11/19/21 05:49 Urine Color Yellow 11/18/21 17:40 Urine Appearance Cloudy (Clear) A 11/18/21 17:40 Urine pH 7.0 (4.5-7.5) 11/18/21 17:40 Ur Specific [place] 1.021 (1.000-1.030) 11/18/21 17:40 Urine Protein Negative (Negative) 11/18/21 17:40 Urine Glucose (UA) Negative (Negative) 11/18/21 17:40 Urine Ketones Negative (Negative) 11/18/21 17:40 Urine Blood Negative (Negative) 11/18/21 17:40 Urine Nitrite Positive (Negative) A 11/18/21 17:40 Urine Bilirubin Negative (Negative) 11/18/21 17:40 Urine Urobilinogen Negative (Negative) 11/18/21 17:40 Ur Leukocyte Esterase Negative (Negative) 11/18/21 17:40 Urine WBC (Auto) 1-5 /hpf (0-5) 11/18/21 17:40 Urine RBC (Auto) 0-4 /hpf (0-4) 11/18/21 17:40 U Hyaline Cast (Auto) 0 /lpf (0-5) 11/18/21 17:40 U Epithel Cells (Auto) 5-10 /lpf (0-5) H 11/18/21 17:40 Urine Bacteria (Auto) 4+ (Negative) H 11/18/21 17:40 SARS-CoV-2, RNA, NAAT POSITIVE (NEGATIVE) A* 11/18/21 16:30 Impressions Hip/Pelvis X-Ray 11/18/21 15:22 XR hip LT 2V w pelvis CLINICAL HISTORY: L hip pain. Pain COMPARISON STUDY: No previous studies for comparison. TECHNIQUE: Pelvis and 2 left hip views FINDINGS: Bones: There is evidence for a transcervical fracture of the left femoral neck. The remaining bones are intact. There is no lytic or blastic lesion. Joints: The femoral head maintains its anatomic position within the acetabulum. There is coxa varus deformity present. Soft tissues: There is no focal soft tissue abnormality. There is no radiopaque foreign body. IMPRESSION: 1. Transcervical fracture of the left femoral neck with coxa varus deformity. ACT 112: Negative or not required by law. Electronically signed by: Kirill Maldonado M.D. 11/18/2021 4:18 PM Pelvis X-Ray 11/19/21 16:50 XR pelvis 1-2V routine CLINICAL HISTORY: Post Surgical COMPARISON: Pelvis and left hip radiographs November 18, 2021. FINDINGS: Alignment of the left hip arthroplasty is anatomic. No periprosthetic fracture is present. There are no unexpected radiopaque foreign bodies. Foreshortening of the right femoral neck is likely technical. Sacroiliac joints and symphysis pubis are intact. IMPRESSION: Expected findings following left hip arthroplasty. ACT 112: Negative or not required by law. Electronically signed by: Roby Krishna M.D. 11/19/2021 5:17 PM
[2021-11-20 15:05] LABS: Hematocrit (blood only) 27.1 % (37-47); Hemoglobin 8.8 g/dL (12.0-16.0)
[2021-11-20] MEDS: cefTRIAXone SODIUM 1,000 MG in DEXTROSE 5% 50 ML IV SCH (20:00)
[2021-11-20] MEDS: MoRPHine SULFATE 2 MG/ML CARP IV PRN (20:03)
[2021-11-20] MEDS: CeleBREX 200 MG CAP PO SCH (20:08)
[2021-11-20] MEDS: SENNA 8.6 MG TAB PO SCH (20:08)
[2021-11-20] MEDS: MIRTAZAPINE TAB 15 MG TAB PO SCH (20:08)
[2021-11-20] MEDS: QUEtiapine FUMARATE 200 MG TAB PO SCH (20:09)
[2021-11-21] MEDS: MoRPHine SULFATE 2 MG/ML CARP IV PRN (05:58)
[2021-11-21] MEDS: ACETAMINOPHEN 500 MG TAB PO SCH ×3 (06:00→21:30)
--- NOTE | 2021-11-21 06:10 | Hospitalist Progress Note ---
Date of Service November 21, 2021 Assessment & Plan (1) Closed left hip fracture: Plan: Mrs. 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 # closed left hip fracture / transcervical fracture of the left femoral neck - transcervical facture of the left femoral neck -- s/p hemiarthroplasty on 11/19 - pain control -- will monitor mentation if frequent use of opioids required - ortho following -- appreciate recs - TEDS, ASA - PT, OT -- monitor progress while inpatient, thereafter: ?home vs. inpatient PT ; likely would benefit from being at home given dementia # delirium -- possible UTI - appreciated on exam and throughout day on 11/19 - strong h/o dementia alongside acute events, dirty UA/dehydration, post- op/anesthesia likely compounding - opt to treat with CFTX for possible UTI - monitor symptoms, pain control, delirium precautions #Anemia - on arrival, Hgb 11 -- post-operatively, dropped to around 8.8 -- now demonstrating stability - suspect component of post-op ABLA, dilution also likely playing a roll - difficult to assess for symptoms given delirious state -- given well appearance on exam, lower suspicion for being symptomatic - transfuse < 7 if indicated, would have to obtain consent from son - Continue ASA for now - hold if e/o persistent drop / concerns for ongoing bleed # osteoporosis - last DEXA in 2017 consistent with osteoporosis. No hx of fragility fracture until now. - was previously on Prolia, but last dose was > 2 years ago - vitamin D level with AM blood work, replete if insufficient or deficient (Vitamin D level in December 2020 was 70) - she probably needs to resume anti-fracture medication post-hospitalization--was following with [facility] rheumatology for her osteoporosis. # dementia - followed by psychiatry in the outpatient setting (Dr. Stewart Madrigal) - continue home medications: memantine, venlafaxine 150mg daily, quetiapine ER 50mg, rivastigmine 1.5mg # HTN. - home medications: amlodipine 5mg, metoprolol ER 25mg, HCTZ-losartan 12.5-50mg - per son, they check her blood pressure and give medications based on what her blood pressure readings are at home - most recently, BPs have been on the low side so he has not been giving the amlodipine and HCTZ-losartan. - Will hold these in the hospital for now, but continue metoprolol. # rheumatoid arthritis - med list has sulfasalazine, but she has not been taking this regularly. - did not continue this for right now, but can restart in the post-operative period/as we are planning for discharge. # COVID--asymptomatic - positive on admission - COVID airborne precautions Dispo: m/s; pending PT/OT Code: DNR/DNI PPX: SCDs, ASA Diet: regular (2) HTN (hypertension): (3) Dementia: (4) Rheumatoid arthritis: (5) Osteoporosis: (6) COVID: Admission and Anticipated Discharge Date Admission Date: November 18, 2021 Supervising Physician Co-Signing Physician Notes I personally examined the patient and verified all martin points of history and exam, discussed case, and agree with decision making with Dr Baker seen doing PT - SKEINER notes that she is progressing. has been unable to successfully coordinate w family though - notes that past attempts w zoom/facetime for family to assess their loved ones have not worked well - she and i both wonder about being able to just get family in to see first hand. vitals noted nad working w PT sits up in bed w assist breathing unlabored no accessory muscles good effort skin no rashes no pallor or icterus Age-related osteoporosis w/ current pathologic fracture of left femur - PT/OT, supportive care, outpt bone health management. (+) urine culture - ?symptoms. given difficulty gauging symptoms will treat for short course currently on rocephin covid - appears asymptomatic dispo - would be ideal to be able to get family in to see her to assess ?can they care for her at home otherwise as above Subjective NAEO. Working with PT. See attending physicians' attestation for further details. Review of Systems Review of Systems: as per HPI Physical Exam Physical Exam: See attestation by attending physician. Patient not seen physically today other than outside her window - in which she was observed to be resting comfortably, NAD. Results & Data Results & Data ([facility]) Vital Signs (Past 12 Hours) Vital Signs Temp Pulse Resp BP Pulse Ox 11/20/21 19:57 36.6 C 81 18 141/84 H 97 Resident Activity Tracking Resident Involvement: Resident Care Provided Care Provided: Adult Hospital Medicine (1) Closed left hip fracture Encounter type: initial encounter Qualified Code(s): S72.002A - Fracture of unspecified part of neck of left femur, initial encounter for closed fracture
[2021-11-21] MEDS: [UNRECOGNIZED DRUG - OTHER] SCH ×2 (07:24→15:17)
[2021-11-21] MEDS: [UNRECOGNIZED DRUG - REMARK] SCH ×2 (07:24→15:17)
[2021-11-21] MEDS: MEMANTINE HCL 10 MG TAB PO SCH ×2 (09:33→21:29)
[2021-11-21] MEDS: DOCUSATE SODIUM 100 MG CAP PO SCH ×2 (09:33→21:28)
[2021-11-21] MEDS: MULTIVITAMIN TAB PO SCH (09:33)
[2021-11-21] MEDS: METOPROLOL SUCC 50MG EXT REL TAB PO SCH (09:33)
[2021-11-21] MEDS: RIVASTIGMINE TARTRATE 1.5 MG CAP PO SCH ×2 (09:33→21:28)
[2021-11-21] MEDS: QUEtiapine FUMARATE 50 MG TABCR PO SCH (09:33)
[2021-11-21] MEDS: VENLAFAXINE HCL XR 150 MG CAPXR PO SCH (09:33)
[2021-11-21] MEDS: CeleBREX 200 MG CAP PO SCH ×2 (09:34→21:29)
[2021-11-21] MEDS: FOLIC ACID 1 MG TAB PO SCH (09:34)
[2021-11-21] MEDS: ASPIRIN 81 MG ECTAB PO SCH (09:34)
[2021-11-21] MEDS: ATORVASTATIN 10 MG TAB PO SCH (09:34)
[2021-11-21 10:26] LABS: Basophils # (auto) 0.01 K/uL (0-0.2); Basophils % (auto) 0.1 %; Eosinophils # (auto) 0.08 K/uL (0-0.5); Eosinophils % (auto) 0.6 %; Hematocrit (blood only) 25.8 % (37-47); Hemoglobin 8.4 g/dL (12.0-16.0); Immature Granulocytes # (auto) 0.03 K/uL (0.00-0.02); Immature Granulocytes % (auto) 0.2 %; Lymphocytes # (auto) 1.12 K/uL (1.2-3.4); Lymphocytes % (auto) 8.3 %; Mean Corpuscular Hemoglobin 30.5 pg (25-34); Mean Corpuscular Hgb Conc 32.6 g/dL (32-36); Mean Corpuscular Volume 93.8 fL (80-100); Mean Platelet Volume 9.4 fL (7.4-10.4); Monocytes # (auto) 1.07 K/uL (0.11-0.59); Monocytes % (auto) 7.9 %; Neutrophils # (auto) 11.22 K/uL (1.4-6.5); Neutrophils % (auto) 82.9 %; Platelet Count 219 K/uL (130-400); RDW Coefficient of Variation 13.9 % (11.5-14.5); RDW Standard Deviation 47.6 fL (36.4-46.3); Red Blood Count 2.75 M/uL (4.2-5.4); White Blood Count 13.53 K/uL (4.8-10.8)
--- NOTE | 2021-11-21 10:46 | Orthopedic Progress Note ---
Date of Service November 21, 2021 Assessment & Plan (1) S/P hip hemiarthroplasty: Plan: POD 2- left hip hemiarthroplasty PT/OT Weightbearing as tolerated with walker assistance Abduction pillow use x6 weeks postoperatively Ice with easy wrap Pain control with p.o. medication DVT prophylaxis with teds, SCDs and aspirin Total hip precautions Will continue to follow while in house. Primary care by medicine service Patient will most likely need inpatient rehab or transfer to a penitentiary facility upon discharge. Follow-up with [facility] orthopedics in approximately 2 weeks. Admission and Anticipated Discharge Date Admission Date: November 18, 2021 Subjective Resting in bed, She is pointing at the TV. Physical Exam Musculoskeletal: Left hip silverlon in place, mild edema left hip, tenderness to touch left thigh. Moves ankles freely, unable to follow commands due to language barrier, dorsalis pedis pulse 1+. Results & Data ([facility]) Vital Signs (Past 12 Hours) Vital Signs Temp Pulse Resp BP Pulse Ox 11/21/21 09:29 36.8 C 84 16 146/81 H 97 Laboratory Results 11/21/21 11/21/21 11/20/21 Range/Units 10:02 10:02 14:50 WBC 13.53 H (4.8-10.8) K/uL RBC 2.75 L (4.2-5.4) M/uL Hgb 8.4 L 8.8 L (12.0-16.0) g/dL Hct 25.8 L 27.1 L (37-47) % MCV 93.8 (80-100) fL MCH 30.5 (25-34) pg MCHC 32.6 (32-36) g/dL RDW Std Deviation 47.6 H (36.4-46.3) fL RDW Coeff of Tom 13.9 (11.5-14.5) % Plt Count 219 (130-400) K/uL MPV 9.4 (7.4-10.4) fL Immature Gran % (Auto) 0.2 % Neut % (Auto) 82.9 % Lymph % (Auto) 8.3 % [place] % (Auto) 7.9 % Eos % (Auto) 0.6 % Baso % (Auto) 0.1 % Neut # (Auto) 11.22 H (1.4-6.5) K/uL Lymph # (Auto) 1.12 L (1.2-3.4) K/uL [place] # (Auto) 1.07 H (0.11-0.59) K/uL Eos # (Auto) 0.08 (0-0.5) K/uL Baso # (Auto) 0.01 (0-0.2) K/uL Immature Gran # (Auto) 0.03 H (0.00-0.02) K/uL Sodium Pending Potassium Pending Chloride Pending Carbon Dioxide Pending Anion Gap Pending BUN Pending Creatinine Pending Est Cr Clr Drug Dosing Pending Est GFR ( Amer) Pending Est GFR (Non-Af Amer) Pending BUN/Creatinine Ratio Pending Glucose Pending Calcium Pending
[2021-11-21 10:49] LABS: Anion Gap 7 (3-11); BUN Creatinine Ratio 25.8 (10-20); Blood Urea Nitrogen 23 mg/dl (6-23); Carbon Dioxide 23 mmol/L (21-32); Chloride 110 mmol/L (98-107); Est GFR (Non-African American) 60.4 ml/min; Glucose 93 mg/dl (70-99(Fasting)); Potassium 3.7 mmol/L (3.5-5.1); Sodium 140 mmol/L (136-145)
--- NOTE | 2021-11-21 12:59 | Billing Data ---
Date of Service November 21, 2021 Coding Level of Care Code 84638 Subseq Hosp Care Lvl 2
[2021-11-21] MEDS: cefTRIAXone SODIUM 1,000 MG in DEXTROSE 5% 50 ML IV SCH (21:21)
[2021-11-21] MEDS: QUEtiapine FUMARATE 200 MG TAB PO SCH (21:30)
[2021-11-21] MEDS: SENNA 8.6 MG TAB PO SCH (21:31)
[2021-11-21] MEDS: MIRTAZAPINE TAB 15 MG TAB PO SCH (21:37)
[2021-11-22] MEDS: [UNRECOGNIZED DRUG - REMARK] SCH ×3 (00:20→16:10)
[2021-11-22] MEDS: ACETAMINOPHEN 500 MG TAB PO SCH ×3 (06:00→20:24)
--- NOTE | 2021-11-22 06:46 | Hospitalist Progress Note ---
Date of Service November 22, 2021 Assessment & Plan (1) Closed left hip fracture: Plan: Mrs. Stratton is an 80 year old female with LEP (speaks Mandarin, requires silk conditioner) and history of osteoporosis, dementia, rheumatoid arthritis, HTN and dementia admitted following a fall where she sustained a left hip fracture, now s/p hemiarthroplasty on 11/19 by [facility]. # closed left hip fracture / transcervical fracture of the left femoral neck - appreciate ortho recommendations -- following - transcervical facture of the left femoral neck -- s/p hemiarthroplasty on 11/19 - weightbearing as tolerated with walker, continue icing, pain control - continue PT, OT - TEDS, ASA - PT, OT -- monitor progress while inpatient, thereafter: home vs. inpatient PT ; likely would benefit from being at home with frequent PT if possible given dementia # delirium -- possible UTI - appreciated on exam and intermittently throughout admission - strong h/o dementia alongside acute events, dirty admission UA/dehydration, post-op/anesthesia likely compounding - opt to treat with CFTX for possible UTI -- end 11/24 - monitor symptoms, pain control, delirium precautions #Anemia - on arrival, Hgb 11 -- post-operatively, dropped to around 8.8 -- now demonst rating stability >8 on serial rechecks - suspect component of post-op ABLA, dilution also likely playing a roll - difficult to assess for symptoms given delirious state -- given well appearance on exam, lower suspicion for being symptomatic - transfusion threshold < 7 - Continue ASA for now # Osteoporosis - last DEXA in 2018 consistent with osteoporosis. No hx of fragility fracture until now. - was previously on Prolia, but last dose was > 2 years ago - vitamin D level with AM blood work, replete if insufficient or deficient (Vitamin D level in December 2020 was 70) - she probably needs to resume anti-fracture medication post-hospitalization--was following with [facility] rheumatology for her osteoporosis. # dementia - followed by psychiatry in the outpatient setting (Dr. Stewart Madrigal) - continue home medications: memantine, venlafaxine 150mg daily, quetiapine ER 50mg, rivastigmine 1.5mg # HTN. - home medications: amlodipine 5mg, metoprolol ER 25mg, HCTZ-losartan 12.5-50mg - per son, they check her blood pressure and give medications based on what her blood pressure readings are at home - most recently, BPs have been on the low side so he has not been giving the amlodipine and HCTZ-losartan. - Will hold these in the hospital for now, but continue metoprolol. # rheumatoid arthritis - med list has sulfasalazine, but she has not been taking this regularly. - did not continue this for right now, but can restart in the post-operative period/as we are planning for discharge. # COVID--asymptomatic - positive on admission - COVID airborne precautions Dispo: m/s; pending PT/OT Code: DNR/DNI PPX: SCDs, ASA Diet: regular (2) HTN (hypertension): (3) Dementia: (4) Rheumatoid arthritis: (5) Osteoporosis: (6) COVID: Admission and Anticipated Discharge Date Admission Date: November 18, 2021 Supervising Physician Co-Signing Physician Notes I personally examined the patient and verified all martin points of history and exam, discussed case, and agree with decision making with Dr Samuel louise w assistance of nursing. no new issues noted. family felt that she would need rehab - due to (+) covid appears that she will not be able to go to a facility until ~6/1 vitals noted nad breathing unlabored no accessory muscles good effort skin no rashes no pallor or icterus Age-related osteoporosis w/ current pathologic fracture of left femur - PT/OT, supportive care, outpt bone health management. (+) urine culture - ?symptoms. given difficulty gauging symptoms will treat for short coursewith rocephin covid - appears asymptomatic dispo - for SNF/rehab otherwise as above Subjective NAEO. Doing well overall this morning. Eating her breakfast. Not reporting significant pain. Review of Systems Review of Systems: as per HPI Physical Exam Physical Exam: General: 80-year old female who is eating breakfast upon my arrival. NAD HEENT: NCAT. - Eyes - Sclera are white, anicteric, and without injection. - Mouth - MMM - Neck - supple, no appreciable JVD Cardiac: NRRR, +S1/S2 w/o m/r/g Pulmonary: Good respiratory effort with symmetric expansion of the chest. No use of accessory muscles. Abdominal: soft/nt/nd Extremities: Upper and lower extremities are warm and well perfused. Results & Data Results & Data ([facility]) Vital Signs (Past 12 Hours) Vital Signs Temp Pulse Resp BP Pulse Ox 11/21/21 21:21 36.5 C 74 16 137/74 97 Resident Activity Tracking Resident Involvement: Resident Care Provided Care Provided: Adult Hospital Medicine (1) Closed left hip fracture Encounter type: initial encounter Qualified Code(s): S72.002A - Fracture of unspecified part of neck of left femur, initial encounter for closed fracture
[2021-11-22] MEDS: MoRPHine SULFATE 2 MG/ML CARP IV PRN (07:43)
[2021-11-22] MEDS: MEMANTINE HCL 10 MG TAB PO SCH ×2 (08:12→20:26)
[2021-11-22] MEDS: CeleBREX 200 MG CAP PO SCH ×2 (08:12→20:23)
[2021-11-22] MEDS: QUEtiapine FUMARATE 50 MG TABCR PO SCH (08:12)
[2021-11-22] MEDS: RIVASTIGMINE TARTRATE 1.5 MG CAP PO SCH ×2 (08:12→20:20)
[2021-11-22] MEDS: FOLIC ACID 1 MG TAB PO SCH (08:12)
[2021-11-22] MEDS: VENLAFAXINE HCL XR 150 MG CAPXR PO SCH (08:12)
[2021-11-22] MEDS: DOCUSATE SODIUM 100 MG CAP PO SCH ×2 (08:12→20:23)
[2021-11-22] MEDS: MULTIVITAMIN TAB PO SCH (08:12)
[2021-11-22] MEDS: METOPROLOL SUCC 50MG EXT REL TAB PO SCH (08:12)
[2021-11-22] MEDS: ATORVASTATIN 10 MG TAB PO SCH (08:12)
[2021-11-22] MEDS: ASPIRIN 81 MG ECTAB PO SCH (08:13)
--- NOTE | 2021-11-22 18:31 | Billing Data ---
Date of Service November 22, 2021 Coding Level of Care Code 82782 Subseq Hosp Care Lvl 1
[2021-11-22] MEDS: cefTRIAXone SODIUM 1,000 MG in DEXTROSE 5% 50 ML IV SCH (20:18)
[2021-11-22] MEDS: SENNA 8.6 MG TAB PO SCH (20:24)
[2021-11-22] MEDS: MIRTAZAPINE TAB 15 MG TAB PO SCH (20:25)
[2021-11-22] MEDS: QUEtiapine FUMARATE 200 MG TAB PO SCH (20:25)
[2021-11-23] MEDS: [UNRECOGNIZED DRUG - REMARK] SCH ×4 (00:01→23:12)
[2021-11-23] MEDS: ACETAMINOPHEN 500 MG TAB PO SCH ×4 (06:08→22:08)
--- NOTE | 2021-11-23 08:00 | Hospitalist Progress Note ---
Date of Service November 23, 2021 Assessment & Plan (1) Closed left hip fracture: Plan: Mrs. 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 # closed left hip fracture / transcervical fracture of the left femoral neck - transcervical facture of the left femoral neck -- s/p hemiarthroplasty on 11/19 - weightbearing as tolerated with walker, continue icing, pain control - continue PT, OT - TEDS, ASA - PT, OT recommending 24 hour care and placement to inpatient rehab. # delirium -- possible UTI - appreciated on exam and intermittently throughout admission - strong h/o dementia alongside acute events, dirty admission UA/dehydration, post-op/anesthesia likely compounding - opt to treat with CFTX for possible UTI -- end 11/24 for total 5 days of therapy - monitor symptoms, pain control, delirium precautions #Anemia - on arrival, Hgb 11 -- post-operatively, dropped to around 8.8 -- now demonstrating stability >8 on serial rechecks - suspect component of post-op ABLA, dilution also likely playing a roll - difficult to assess for symptoms given delirious state -- given well appearance on exam, lower suspicion for being symptomatic - transfusion threshold < 7 - Continue ASA for now # Osteoporosis - last DEXA in 2018 consistent with osteoporosis. No hx of fragility fracture until now. - was previously on Prolia, but last dose was > 2 years ago - vitamin D 65.2, appropriate without supplement. - following with [facility] rheumatology for her osteoporosis, may benefit from resumption of prolia given pathologic fracture # dementia - followed by psychiatry in the outpatient setting (Dr. Stewart Madrigal) - continue home medications: memantine, venlafaxine 150mg daily, quetiapine ER 50mg, rivastigmine 1.5mg # HTN. - home medications: amlodipine 5mg, metoprolol ER 25mg, HCTZ-losartan 12.5-50mg - per son, they check her blood pressure and give medications based on what her blood pressure readings are at home - most recently, BPs have been on the low side so he has not been giving the amlodipine and HCTZ-losartan. - restarting BP medications at this time given elevated pressures. # rheumatoid arthritis - med list has sulfasalazine, but she has not been taking this regularly. - did not continue this for right now, but can restart in the post-operative period/as we are planning for discharge. # COVID--asymptomatic - positive on admission - COVID airborne precautions Dispo: d/c to inpatient rehab after medical clearance with COVID. awaiting bed approval. Code: DNR/DNI PPX: SCDs, ASA Diet: regular (2) HTN (hypertension): (3) Dementia: (4) Rheumatoid arthritis: (5) Osteoporosis: (6) COVID: Admission and Anticipated Discharge Date Admission Date: November 18, 2021 Supervising Physician Co-Signing Physician Notes I personally examined the patient and verified all martin points of history and exam, discussed case, and agree with decision making with Dr Chen no new problems overall. apparently did not eat well for lunch. nursing about to assist with dinner when i go in. vitals noted nad breathing unlabored no accessory muscles no r/r/w good effort cardio reg no r/m/g skin no rashes no pallor or icterus Age-related osteoporosis w/ current pathologic fracture of left femur - PT/OT, supportive care, outpt bone health management. for rehab once possible (+) urine culture - ?symptoms. given difficulty gauging symptoms will treat for short course with rocephin covid - appears asymptomatic dispo - for SNF/rehab once possible otherwise as above Subjective 80 yo F s/p hemiarthroplasty, stable and participating with PT. asymptomatic covid positive. profound dementia and barrier to communication with speaking primarily mandarin. This morning eating well with assistance from nurse. no problems overnight, comfortable appearing. Review of Systems Review of Systems: Unobtainable due to cognitive status Physical Exam Physical Exam: const: well appearing card: rrr no mrg pulm: CTA BL, no wheezes crackles rhonchi ext: no peripheral edema Results & Data Results & Data ([facility]) Vital Signs (Past 12 Hours) Vital Signs Temp Pulse Resp BP Pulse Ox 11/22/21 20:27 36.4 C L 79 18 176/94 H 96 Resident Activity Tracking Resident Involvement: Resident Care Provided Care Provided: Adult Hospital Medicine (1) Closed left hip fracture Encounter type: initial encounter Qualified Code(s): S72.002A - Fracture of unspecified part of neck of left femur, initial encounter for closed fracture
[2021-11-23] MEDS: FOLIC ACID 1 MG TAB PO SCH (08:41)
[2021-11-23] MEDS: ATORVASTATIN 10 MG TAB PO SCH (08:41)
[2021-11-23] MEDS: CeleBREX 200 MG CAP PO SCH ×2 (08:42→22:05)
[2021-11-23] MEDS: MEMANTINE HCL 10 MG TAB PO SCH ×2 (08:42→22:11)
[2021-11-23] MEDS: METOPROLOL SUCC 50MG EXT REL TAB PO SCH (08:42)
[2021-11-23] MEDS: RIVASTIGMINE TARTRATE 1.5 MG CAP PO SCH ×2 (08:43→22:10)
[2021-11-23] MEDS: DOCUSATE SODIUM 100 MG CAP PO SCH ×2 (08:43→22:12)
[2021-11-23] MEDS: QUEtiapine FUMARATE 50 MG TABCR PO SCH (08:44)
[2021-11-23] MEDS: VENLAFAXINE HCL XR 150 MG CAPXR PO SCH (08:44)
--- NOTE | 2021-11-23 08:44 | Orthopedic Progress Note ---
Date of Service November 23, 2021 Assessment & Plan (1) S/P hip hemiarthroplasty: Plan: POD 4- left hip hemiarthroplasty PT/OT Weightbearing as tolerated with walker assistance Abduction pillow use x6 weeks postoperatively Ice with easy wrap Pain control with p.o. medication DVT prophylaxis with teds, SCDs and aspirin Total hip precautions Will continue to follow while in house. Primary care by medicine service Patient will most likely need inpatient rehab or transfer to a jail facility upon discharge. Follow-up with [facility] orthopedics in approximately 2 weeks. Admission and Anticipated Discharge Date Admission Date: November 18, 2021 Subjective This 80-year-old female is seen this morning. She is 4 days status post left hip hemiarthroplasty after sustaining a fracture. Currently she is somnolent lying in her bed. She did open her eyes while checking her dressing and doing some light manipulation of her leg. However, she was nonverbal during her examination this morning. Review of Systems Review of Systems: Unobtainable due to reduced consciousness Physical Exam Physical Exam: Left hip: [place] was intact, clean and dry. Patient was unable to perform an active straight leg raise test, however passive straight leg raise test does not cause any pain. Patient tolerated logroll testing this morning. She made no sounds and did not grimace with light passive internal and externally rotating. Her peripheral pulses 2+. Her calf is soft and supple. Results & Data ([facility]) Vital Signs (Past 12 Hours) Vital Signs Temp Pulse Resp BP Pulse Ox 11/23/21 08:38 36.7 C 77 16 162/90 H 97
[2021-11-23] MEDS: MULTIVITAMIN TAB PO SCH (08:45)
[2021-11-23] MEDS: ASPIRIN 81 MG ECTAB PO SCH (08:45)
--- NOTE | 2021-11-23 18:11 | Billing Data ---
Date of Service November 23, 2021 Coding Level of Care Code 58211 Subseq Hosp Care Lvl 1
[2021-11-23] MEDS: MIRTAZAPINE TAB 15 MG TAB PO SCH (22:06)
[2021-11-23] MEDS: SENNA 8.6 MG TAB PO SCH (22:06)
[2021-11-23] MEDS: QUEtiapine FUMARATE 200 MG TAB PO SCH (22:11)
[2021-11-23] MEDS: cefTRIAXone SODIUM 1,000 MG in DEXTROSE 5% 50 ML IV SCH (23:13)
[2021-11-24] MEDS: ACETAMINOPHEN 500 MG TAB PO SCH ×3 (05:58→21:17)
--- NOTE | 2021-11-24 07:22 | Hospitalist Progress Note ---
Date of Service November 24, 2021 Assessment & Plan (1) Closed left hip fracture: Plan: Mrs. 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 # closed left hip fracture / transcervical fracture of the left femoral neck, POD4 - transcervical facture of the left femoral neck -- s/p hemiarthroplasty on 11/19 - weightbearing as tolerated with walker, continue icing, pain control - continue PT, OT - TEDS, ASA - PT, OT recommending 24 hour care and placement to inpatient rehab. # delirium -- possible UTI - appreciated on exam and intermittently throughout admission - strong h/o dementia alongside acute events, dirty admission UA/dehydration, post-op/anesthesia likely compounding - opt to treat with CFTX for possible UTI -- end 11/24 for total 5 days of therapy - monitor symptoms, pain control, delirium precautions #Anemia - on arrival, Hgb 11 -- post-operatively, dropped to around 8.8 -- now demonstrating stability >8 on serial rechecks - suspect component of post-op ABLA - difficult to assess for symptoms given delirious state -- given well appearance on exam, lower suspicion for being symptomatic - transfusion threshold < 7 - Continue ASA for now # Osteoporosis - last DEXA in 2018 consistent with osteoporosis. No hx of fragility fracture until now. - was previously on Prolia, but last dose was > 2 years ago - vitamin D 65.2, appropriate without supplement. - following with [facility] rheumatology for her osteoporosis, may benefit from resumption of prolia given pathologic fracture # dementia - followed by psychiatry in the outpatient setting (Dr. Stewart Madrigal) - continue home medications: memantine, venlafaxine 150mg daily, quetiapine ER 50mg, rivastigmine 1.5mg # HTN. - home regimen # rheumatoid arthritis - med list has sulfasalazine, but she has not been taking this regularly. - did not continue this for right now, but can restart in the post-operative period/as we are planning for discharge. # COVID--asymptomatic - positive on admission - COVID airborne precautions Dispo: d/c to inpatient rehab after medical clearance with [facility] (11/28, 10 day emmett). awaiting bed approval. Code: DNR/DNI PPX: SCDs, ASA Diet: regular, easy to chew (2) HTN (hypertension): (3) Dementia: (4) Rheumatoid arthritis: (5) Osteoporosis: (6) COVID: Admission and Anticipated Discharge Date Admission Date: November 18, 2021 Subjective No acute events overnight per nursing. Did not eat breakfast yet. During bath yesterday, patient was slightly tugging/pressing at the postop dressing. No wound concerns from nursing. Review of Systems Review of Systems: Unobtainable due to cognitive status (severe dementia) Physical Exam Physical Exam: General: Alert. NAD. Nonverbal. HEENT: Atraumatic, normocephalic. EOMI Pulm: CTAB anteriorly. -wheezes, -rales, -rhonchi. No respiratory distress. Cardiac: RRR, -mrg. No LE edema. Abdominal: Nontender, nondistended, soft. Results & Data Results & Data ([facility]) Vital Signs (Past 12 Hours) Vital Signs Temp Pulse Resp BP Pulse Ox 11/23/21 22:13 36.5 C 79 18 160/84 H 97 Resident Activity Tracking Resident Involvement: Resident Care Provided Care Provided: Adult Hospital Medicine (1) Closed left hip fracture Encounter type: initial encounter Qualified Code(s): S72.002A - Fracture of unspecified part of neck of left femur, initial encounter for closed fracture
[2021-11-24 08:24] LABS: Basophils # (auto) 0.03 K/uL (0-0.2); Basophils % (auto) 0.4 %; Eosinophils # (auto) 0.25 K/uL (0-0.5); Eosinophils % (auto) 3.1 %; Hematocrit (blood only) 25.8 % (37-47); Hemoglobin 8.5 g/dL (12.0-16.0); Immature Granulocytes # (auto) 0.01 K/uL (0.00-0.02); Immature Granulocytes % (auto) 0.1 %; Lymphocytes # (auto) 1.34 K/uL (1.2-3.4); Lymphocytes % (auto) 16.5 %; Mean Corpuscular Hemoglobin 30.6 pg (25-34); Mean Corpuscular Hgb Conc 32.9 g/dL (32-36); Mean Corpuscular Volume 92.8 fL (80-100); Monocytes # (auto) 0.64 K/uL (0.11-0.59); Monocytes % (auto) 7.9 %; Neutrophils # (auto) 5.84 K/uL (1.4-6.5); Platelet Count 356 K/uL (130-400); RDW Coefficient of Variation 13.9 % (11.5-14.5); RDW Standard Deviation 47.1 fL (36.4-46.3); Red Blood Count 2.78 M/uL (4.2-5.4); White Blood Count 8.11 K/uL (4.8-10.8)
[2021-11-24] MEDS: RIVASTIGMINE TARTRATE 1.5 MG CAP PO SCH ×2 (12:38→21:15)
[2021-11-24] MEDS: CeleBREX 200 MG CAP PO SCH ×2 (12:38→21:12)
[2021-11-24] MEDS: DOCUSATE SODIUM 100 MG CAP PO SCH ×2 (12:48→21:13)
[2021-11-24] MEDS: FOLIC ACID 1 MG TAB PO SCH (12:49)
[2021-11-24] MEDS: MEMANTINE HCL 10 MG TAB PO SCH ×2 (12:49→21:13)
[2021-11-24] MEDS: ATORVASTATIN 10 MG TAB PO SCH (12:49)
[2021-11-24] MEDS: MULTIVITAMIN TAB PO SCH (12:50)
[2021-11-24] MEDS: ASPIRIN 81 MG ECTAB PO SCH (12:50)
[2021-11-24] MEDS: VENLAFAXINE HCL XR 150 MG CAPXR PO SCH (12:50)
[2021-11-24] MEDS: QUEtiapine FUMARATE 50 MG TABCR PO SCH (12:51)
[2021-11-24] MEDS: METOPROLOL SUCC 50MG EXT REL TAB PO SCH (12:51)
[2021-11-24] MEDS: LOSARTAN/HCTZ 50/12.5MG TAB PO SCH (12:52)
[2021-11-24] MEDS: [UNRECOGNIZED DRUG - REMARK] SCH ×3 (12:52→23:21)
--- NOTE | 2021-11-24 17:40 | Billing Data ---
Date of Service November 24, 2021 Coding Level of Care Code 32143 Subseq Hosp Care Lvl 1
--- NOTE | 2021-11-24 17:41 | Billing Data ---
Date of Service November 24, 2021 Coding Level of Care Code 23001 Subseq Hosp Care Lvl 1
[2021-11-24] MEDS: MIRTAZAPINE TAB 15 MG TAB PO SCH (21:14)
[2021-11-24] MEDS: QUEtiapine FUMARATE 200 MG TAB PO SCH (21:15)
[2021-11-24] MEDS: SENNA 8.6 MG TAB PO SCH (21:16)
[2021-11-25] MEDS: ACETAMINOPHEN 500 MG TAB PO SCH ×3 (05:56→19:33)
--- NOTE | 2021-11-25 07:48 | Hospitalist Progress Note ---
Date of Service November 25, 2021 Assessment & Plan (1) Closed left hip fracture: Plan: Mrs. 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 # closed left hip fracture / transcervical fracture of the left femoral neck, POD5 - transcervical facture of the left femoral neck -- s/p hemiarthroplasty on 11/19 - weightbearing as tolerated with walker, continue icing, pain control - continue PT, OT - TEDS, ASA - PT, OT recommending 24 hour care and placement to inpatient rehab. # stage 2 pressure ulcers of left hip - wound care nurse consulted - routine wound care per bedside nurse # delirium -- possible UTI - appreciated on exam and intermittently throughout admission - strong h/o dementia alongside acute events, dirty admission UA/dehydration, post-op/anesthesia likely compounding - opt to treat with CFTX for possible UTI -- Completed 5 days of ceftriaxone on 11/24/21 - monitor symptoms, pain control, delirium precautions #Anemia - on arrival, Hgb 11 -- post-operatively, dropped to around 8.8 -- now demonstrating stability >8 on serial rechecks - follow CBC # Osteoporosis - last DEXA in 2018 consistent with osteoporosis. No hx of fragility fracture until now. - was previously on Prolia, but last dose was > 2 years ago - vitamin D 65.2, appropriate without supplement. - following with [facility] rheumatology for her osteoporosis, may benefit from resumption of prolia given pathologic fracture # dementia - followed by psychiatry in the outpatient setting (Dr. Stewart Madrigal) - continue home medications: memantine, venlafaxine 150mg daily, quetiapine ER 50mg, rivastigmine 1.5mg # HTN. - home regimen # rheumatoid arthritis - med list has sulfasalazine, but she has not been taking this regularly. - did not continue this for right now, but can restart in the post-operative period/as we are planning for discharge. # COVID--asymptomatic - positive on admission - COVID airborne precautions Dispo: d/c to inpatient rehab after medical clearance with COVID (11/28, 10 day emmett). awaiting bed approval. Code: DNR/DNI PPX: SCDs, ASA Diet: regular, easy to chew (2) HTN (hypertension): (3) Dementia: (4) Rheumatoid arthritis: (5) Osteoporosis: (6) COVID: Admission and Anticipated Discharge Date Admission Date: November 18, 2021 Supervising Physician Co-Signing Physician Notes I personally examined the patient and verified all martin points of history and exam, discussed case, and agree with decision making with Dr Sanchez no new problems overall. resting in bed. vitals noted nad breathing unlabored no accessory muscles no r/r/w good effort cardio reg no r/m/g skin no rashes no pallor or icterus Age-related osteoporosis w/ current pathologic fracture of left femur - PT/OT, supportive care, outpt bone health management. for rehab once possible (likely 11/28) (+) urine culture - ?symptoms. given difficulty gauging symptoms will treat for short course with rocephin covid - appears asymptomatic dispo - for SNF/rehab once possible otherwise as above Subjective Per nursing, no acute events overnight. Patient refused breakfast this AM. Has sores near L hip dressing. Review of Systems Review of Systems: Unobtainable due to cognitive status (severe dementia) Physical Exam Physical Exam: General: Alert. NAD. Vocalized some words. HEENT: Atraumatic, normocephalic. EOMI Pulm: CTAB anteriorly and left posterior. -wheezes, -rales, -rhonchi. No respiratory distress. Cardiac: RRR, -mrg. No LE edema. Abdominal: Nontender, nondistended, soft. Integ: L hip has ~3 irregular shaped stage 2 superficial ulcers near surgical dressing. Results & Data Results & Data ([facility]) Vital Signs (Past 12 Hours) Vital Signs Temp Pulse Resp BP Pulse Ox 11/25/21 00:09 36.6 C 77 16 104/67 94 Resident Activity Tracking Resident Involvement: Resident Care Provided Care Provided: Adult Hospital Medicine (1) Closed left hip fracture Encounter type: initial encounter Qualified Code(s): S72.002A - Fracture of unspecified part of neck of left femur, initial encounter for closed fracture
[2021-11-25] MEDS: CeleBREX 200 MG CAP PO SCH ×2 (08:23→19:34)
[2021-11-25] MEDS: MEMANTINE HCL 10 MG TAB PO SCH ×2 (08:24→19:34)
[2021-11-25] MEDS: RIVASTIGMINE TARTRATE 1.5 MG CAP PO SCH ×2 (08:24→19:34)
[2021-11-25] MEDS: DOCUSATE SODIUM 100 MG CAP PO SCH ×2 (08:24→19:34)
[2021-11-25] MEDS: ATORVASTATIN 10 MG TAB PO SCH (08:25)
[2021-11-25] MEDS: ASPIRIN 81 MG ECTAB PO SCH (08:25)
[2021-11-25] MEDS: FOLIC ACID 1 MG TAB PO SCH (08:25)
[2021-11-25] MEDS: METOPROLOL SUCC 50MG EXT REL TAB PO SCH (08:26)
[2021-11-25] MEDS: LOSARTAN/HCTZ 50/12.5MG TAB PO SCH (08:26)
[2021-11-25] MEDS: MULTIVITAMIN TAB PO SCH (08:26)
[2021-11-25] MEDS: QUEtiapine FUMARATE 50 MG TABCR PO SCH ×2 (08:26→19:33)
[2021-11-25] MEDS: VENLAFAXINE HCL XR 150 MG CAPXR PO SCH (08:28)
[2021-11-25] MEDS: [UNRECOGNIZED DRUG - REMARK] SCH ×3 (10:37→21:08)
--- NOTE | 2021-11-25 17:00 | Billing Data ---
Date of Service November 25, 2021 Coding Level of Care Code 84512 Subseq Hosp Care Lvl 1
[2021-11-25] MEDS: MIRTAZAPINE TAB 15 MG TAB PO SCH (19:34)
[2021-11-25] MEDS: SENNA 8.6 MG TAB PO SCH (19:35)
[2021-11-25] MEDS: QUEtiapine FUMARATE 200 MG TAB PO SCH (19:36)
[2021-11-26] MEDS: ACETAMINOPHEN 500 MG TAB PO SCH ×3 (05:49→20:41)
[2021-11-26 07:06] LABS: Hematocrit (blood only) 25.5 % (37-47); Hemoglobin 8.3 g/dL (12.0-16.0); Mean Corpuscular Hemoglobin 30.4 pg (25-34); Mean Corpuscular Hgb Conc 32.5 g/dL (32-36); Mean Corpuscular Volume 93.4 fL (80-100); Mean Platelet Volume 8.6 fL (7.4-10.4); Platelet Count 406 K/uL (130-400); RDW Coefficient of Variation 14.2 % (11.5-14.5); RDW Standard Deviation 48.1 fL (36.4-46.3); Red Blood Count 2.73 M/uL (4.2-5.4); White Blood Count 10.32 K/uL (4.8-10.8)
[2021-11-26] MEDS: ATORVASTATIN 10 MG TAB PO SCH (09:11)
[2021-11-26] MEDS: [UNRECOGNIZED DRUG - REMARK] SCH ×2 (09:11→15:09)
[2021-11-26] MEDS: RIVASTIGMINE TARTRATE 1.5 MG CAP PO SCH ×2 (09:11→20:40)
[2021-11-26] MEDS: FOLIC ACID 1 MG TAB PO SCH (09:12)
[2021-11-26] MEDS: LOSARTAN/HCTZ 50/12.5MG TAB PO SCH (09:14)
[2021-11-26] MEDS: ASPIRIN 81 MG ECTAB PO SCH (09:14)
[2021-11-26] MEDS: MULTIVITAMIN TAB PO SCH (09:14)
[2021-11-26] MEDS: METOPROLOL SUCC 50MG EXT REL TAB PO SCH (09:14)
[2021-11-26] MEDS: CeleBREX 200 MG CAP PO SCH ×2 (09:15→20:39)
[2021-11-26] MEDS: VENLAFAXINE HCL XR 150 MG CAPXR PO SCH (09:15)
[2021-11-26] MEDS: DOCUSATE SODIUM 100 MG CAP PO SCH ×2 (09:15→20:42)
[2021-11-26] MEDS: MEMANTINE HCL 10 MG TAB PO SCH ×2 (09:15→20:39)
--- NOTE | 2021-11-26 17:00 | Hospitalist Progress Note ---
Date of Service November 26, 2021 Assessment & Plan (1) Closed left hip fracture: Plan: Mrs. 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 # closed left hip fracture / transcervical fracture of the left femoral neck, POD5 - transcervical facture of the left femoral neck -- s/p hemiarthroplasty on 11/19 - weightbearing as tolerated with walker, continue icing, pain control - continue PT, OT - TEDS, ASA - PT, OT recommending 24 hour care and placement to inpatient rehab. # stage 2 pressure ulcers of left hip - wound care nurse consulted - routine wound care per bedside nurse # delirium -- possible UTI - appreciated on exam and intermittently throughout admission - strong h/o dementia alongside acute events, dirty admission UA/dehydration, post-op/anesthesia likely compounding - Completed 5 days of ceftriaxone on 11/24/21 - monitor symptoms, pain control, delirium precautions #Acute blood loss Anemia - on arrival, Hgb 11 -- post-operatively, dropped to around 8.8 -- now stable >8 on serial rechecks - follow CBC # Osteoporosis - last DEXA in 2018 consistent with osteoporosis. No hx of fragility fracture until now. - was previously on Prolia, but last dose was > 2 years ago - vitamin D 65.2, appropriate without supplement. - following with [facility] rheumatology for her osteoporosis, may benefit from resumption of prolia given pathologic fracture # dementia - followed by psychiatry in the outpatient setting (Dr. Stewart Madrigal) - continue home medications: memantine, venlafaxine 150mg daily, quetiapine ER 50mg, rivastigmine 1.5mg # HTN. - home regimen # rheumatoid arthritis - med list has sulfasalazine, but she has not been taking this regularly. - did not continue this for right now, but can restart in the post-operative period/as we are planning for discharge. # COVID--asymptomatic - positive on admission - COVID airborne precautions Dispo: d/c to inpatient rehab after medical clearance with COVID (11/28, 10 day emmett). awaiting bed approval. Code: DNR/DNI PPX: SCDs, ASA Diet: regular, easy to chew (2) HTN (hypertension): (3) Dementia: (4) Rheumatoid arthritis: (5) Osteoporosis: (6) COVID: Admission and Anticipated Discharge Date Admission Date: November 18, 2021 Subjective Per nursing, no acute events overnight. pleasantly confused as per translation services in past. Physical Exam Constitutional: WD/WN, vitals as above Respiratory: normal respiratory effort, lungs clear to auscultation Cardiovascular: regular rate/rhythm Psychiatric: Alert. Results & Data Results & Data ([facility]) Vital Signs (Past 12 Hours) Vital Signs Temp Pulse Resp BP Pulse Ox 11/26/21 14:36 36.5 C 74 16 149/77 H 99 11/26/21 09:00 36.8 C 76 18 146/79 H 99 (1) Closed left hip fracture Encounter type: initial encounter Qualified Code(s): S72.002A - Fracture of unspecified part of neck of left femur, initial encounter for closed fracture
[2021-11-26] MEDS: traMADol HCL 50 MG TABLET PO PRN (20:35)
[2021-11-26] MEDS: MIRTAZAPINE TAB 15 MG TAB PO SCH (20:39)
[2021-11-26] MEDS: SENNA 8.6 MG TAB PO SCH (20:40)
[2021-11-26] MEDS: QUEtiapine FUMARATE 200 MG TAB PO SCH (20:41)
[2021-11-27] MEDS: [UNRECOGNIZED DRUG - REMARK] SCH ×4 (00:06→23:59)
[2021-11-27] MEDS: ACETAMINOPHEN 500 MG TAB PO SCH ×3 (06:31→22:51)
[2021-11-27] MEDS: ASPIRIN 81 MG ECTAB PO SCH (08:56)
[2021-11-27] MEDS: METOPROLOL SUCC 50MG EXT REL TAB PO SCH (08:56)
[2021-11-27] MEDS: LOSARTAN/HCTZ 50/12.5MG TAB PO SCH (08:56)
[2021-11-27] MEDS: MULTIVITAMIN TAB PO SCH (08:56)
[2021-11-27] MEDS: FOLIC ACID 1 MG TAB PO SCH (08:56)
[2021-11-27] MEDS: ATORVASTATIN 10 MG TAB PO SCH (08:56)
[2021-11-27] MEDS: MEMANTINE HCL 10 MG TAB PO SCH ×2 (08:56→22:46)
[2021-11-27] MEDS: VENLAFAXINE HCL XR 150 MG CAPXR PO SCH (08:56)
[2021-11-27] MEDS: RIVASTIGMINE TARTRATE 1.5 MG CAP PO SCH ×2 (08:56→22:48)
[2021-11-27] MEDS: QUEtiapine FUMARATE 50 MG TABCR PO SCH (08:56)
[2021-11-27] MEDS: CeleBREX 200 MG CAP PO SCH ×2 (08:56→22:51)
[2021-11-27] MEDS: DOCUSATE SODIUM 100 MG CAP PO SCH ×2 (08:57→22:45)
--- NOTE | 2021-11-27 16:09 | Hospitalist Progress Note ---
Date of Service November 27, 2021 Assessment & Plan (1) Closed left hip fracture: Plan: Mrs. 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 # closed left hip fracture / transcervical fracture of the left femoral neck, POD5 - transcervical facture of the left femoral neck -- s/p hemiarthroplasty on 11/19 - weightbearing as tolerated with walker, continue icing, pain control - continue PT, OT - TEDS, ASA - PT, OT recommending 24 hour care and placement to inpatient rehab. # stage 2 pressure ulcers of left hip - wound care nurse consulted - routine wound care per bedside nurse # delirium -- possible UTI - strong h/o dementia alongside acute events, dirty admission UA/dehydration, post-op/anesthesia likely compounding - Completed 5 days of ceftriaxone on 11/24/21 - monitor symptoms, pain control, delirium precautions #Acute blood loss Anemia - on arrival, Hgb 11 -- post-operatively, dropped to around 8.8 -- now stable >8 on serial rechecks - follow CBC # Osteoporosis - last DEXA in 2018 consistent with osteoporosis. No hx of fragility fracture until now. - was previously on Prolia, but last dose was > 2 years ago - vitamin D 65.2, appropriate without supplement. - following with [facility] rheumatology for her osteoporosis, may benefit from resumption of prolia given pathologic fracture # dementia - followed by psychiatry in the outpatient setting (Dr. Stewart Madrigal) - continue home medications: memantine, venlafaxine 150mg daily, quetiapine ER 50mg, rivastigmine 1.5mg # HTN. - home regimen # rheumatoid arthritis - med list has sulfasalazine, but she has not been taking this regularly. - did not continue this for right now, but can restart in the post-operative period/as we are planning for discharge. # COVID--asymptomatic - positive on admission - COVID airborne precautions Dispo: d/c to inpatient rehab after medical clearance with COVID (11/28, 10 day emmett). awaiting bed approval. Code: DNR/DNI PPX: SCDs, ASA Diet: regular, easy to chew (2) HTN (hypertension): (3) Dementia: (4) Rheumatoid arthritis: (5) Osteoporosis: (6) COVID: Admission and Anticipated Discharge Date Admission Date: November 18, 2021 Subjective Per nursing, no acute events overnight. feels comfortable. denied any concerns was thankful for the visit. Physical Exam Constitutional: WD/WN, vitals as above Respiratory: normal respiratory effort, lungs clear to auscultation Cardiovascular: RRR, no murmur, no edema Psychiatric: Alert Results & Data Results & Data ([facility]) Vital Signs (Past 12 Hours) Vital Signs Temp Pulse Resp BP Pulse Ox 11/27/21 07:47 36.6 C 71 17 131/79 99 (1) Closed left hip fracture Encounter type: initial encounter Qualified Code(s): S72.002A - Fracture of unspecified part of neck of left femur, initial encounter for closed fracture
[2021-11-27] MEDS: QUEtiapine FUMARATE 200 MG TAB PO SCH (22:45)
[2021-11-27] MEDS: MIRTAZAPINE TAB 15 MG TAB PO SCH (22:46)
[2021-11-27] MEDS: SENNA 8.6 MG TAB PO SCH (22:47)
[2021-11-27] MEDS: traMADol HCL 50 MG TABLET PO PRN (22:47)
[2021-11-28] MEDS: ACETAMINOPHEN 500 MG TAB PO SCH (05:48)
[2021-11-28] MEDS: CeleBREX 200 MG CAP PO SCH (08:45)
[2021-11-28] MEDS: RIVASTIGMINE TARTRATE 1.5 MG CAP PO SCH (08:47)
[2021-11-28] MEDS: MULTIVITAMIN TAB PO SCH (08:48)
[2021-11-28] MEDS: QUEtiapine FUMARATE 50 MG TABCR PO SCH (08:48)
[2021-11-28] MEDS: MEMANTINE HCL 10 MG TAB PO SCH (08:48)
[2021-11-28] MEDS: METOPROLOL SUCC 50MG EXT REL TAB PO SCH (08:48)
[2021-11-28] MEDS: VENLAFAXINE HCL XR 150 MG CAPXR PO SCH (08:49)
[2021-11-28] MEDS: ASPIRIN 81 MG ECTAB PO SCH (08:49)
[2021-11-28] MEDS: LOSARTAN/HCTZ 50/12.5MG TAB PO SCH (08:49)
[2021-11-28] MEDS: ATORVASTATIN 10 MG TAB PO SCH (08:51)
[2021-11-28] MEDS: FOLIC ACID 1 MG TAB PO SCH (08:51)
[2021-11-28] MEDS: DOCUSATE SODIUM 100 MG CAP PO SCH (08:51)
[2021-11-28] MEDS: [UNRECOGNIZED DRUG - REMARK] SCH (08:53)
--- NOTE | 2021-11-28 12:10 | Discharge Summary ---
Date of Service November 28, 2021 Admission HPI Per Admitting Provider Mrs. Stratton is an 80 year old female with history of osteoporosis, dementia, rheumatoid arthritis, HTN and dementia admitted following a fall where she sustained a left hip fracture. She lives at home with her son, his and their child. History was obtained from the son at the bedside (patient speaks Mandarian and her dementia makes it difficult to obtain an accurate history). Son heard a thud around 10am this morning. When he went upstairs, mom was on the ground. He suspects she may have fallen out of bed. He was able to get her up and she was able to partially ambulate. However, as the morning progressed, it was getting harder for her to ambulate. She is typically independent with ADLs and walks independently in the home. He does report that she tends to bump into things and will sustain small bruises here and there from that. On review of most recent Power Chart office note from November 2020, appears that patient has had a few falls per month and was in the office with concerns for needing a wheelchair due to ambulatory dysfunction. Per son, they check her blood pressure and give medications based on what her blood pressure readings are at home. Most recently, BPs have been on the low side so he has not been giving the amlodipine and HCTZ-losartan. If her blood pressure is very low, he will hold the metoprolol as well. No chest pain or noticeable exercise intolerance in the days leading up today. No changes in mental status. She does have a history of osteoporosis. DEXA in 2018 was consistent with osteoporosis. She has never had a fragility fractures that he is aware of, but on review of the notes in Power Chart, it sounds like she had a patellar fracture although unclear exactly when this happened. After the DEXA was done, she was getting Prolia injections and did not have any fractures while on Prolia. Son is not sure how many injections she had, but thinks it was more than 2. He thinks her last Prolia injection was before the COVID pandemic. He does not recall if she was ever on a bisphosphonate. Admission Exam Per Admitting Provider Constitutional: WD/WN, vitals as above Eyes: PERRL, conjunctivae normal, anicteric sclerae Neck: normal visual inspection and trachea midline Respiratory: normal respiratory effort; no labored breathing Auscultation: lungs clear to auscultation bilaterally Cardiovascular: Rate/Rhythm: regular rate and regular rhythm Heart Sounds: normal S1 and normal S2 Extremities: no pedal edema Gastrointestinal (Abdomen): Inspection/Auscultation: abdomen normal to inspection and normal bowel sounds; abdomen not distended Percussion/Palpation: abdomen soft; abdomen nontender, no guarding and no hepatosplenomegaly Musculoskeletal: Hip: + deformity neurovascularly intact in the distal lower extremities. Skin: scattered ecchymosis in various stages of healing; erythematous plaque over the right medial ankle. Psychiatric: Orientation: alert and cooperative; + not oriented to place and + not oriented to time Apperance: appeared stated age Speech: normal rate/rhythm/volume of speech Principal Diagnosis Left hip fracture - s/p repair Discharge Exam See attending attestation Discharge Data Allergies Allergy/AdvReac Type Severity Reaction Status Date / Time No Known Allergies Allergy Verified 11/18/21 22:38 Consultations 11/18/21 16:41 ED Decision to Admit Stat 11/19/21 09:16 Consult Orthopedic Surgery Routine Procedures Performed Operation Date: 11/19/21 09:00 Actual Procedures p Left Cemented Bipolar Hemiarthroplasty(Left) - Ricco Ramirez MD Hospital Course (1) Closed left hip fracture: Mrs. 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 # closed left hip fracture / transcervical fracture of the left femoral neck, POD5 - transcervical facture of the left femoral neck -- s/p hemiarthroplasty on 11/19 - weightbearing as tolerated with walker, continue icing, pain control - continue PT, OT - TEDS, ASA # stage 2 pressure ulcers of left hip - wound care nurse consulted - routine wound care per bedside nurse # delirium -- possible UTI - strong h/o dementia alongside acute events, dirty admission UA/dehydration, post-op/anesthesia likely compounding - Completed 5 days of ceftriaxone on 11/24/21 #Acute blood loss Anemia - on arrival, Hgb 11 -- post-operatively, dropped to around 8.8 -- now stable >8 on serial rechecks # Osteoporosis - last DEXA in 2018 consistent with osteoporosis. No hx of fragility fracture until now. - was previously on Prolia, but last dose was > 2 years ago - vitamin D 65.2, appropriate without supplement. - following with [facility] rheumatology for her osteoporosis, may benefit from resumption of prolia given pathologic fracture # dementia - followed by psychiatry in the outpatient setting (Dr. Stewart Madrigal) - continue home medications: memantine, venlafaxine 150mg daily, quetiapine ER 50mg, rivastigmine 1.5mg # HTN. - home regimen # rheumatoid arthritis - med list has sulfasalazine, but she has not been taking this regularly. - did not continue this for right now, but can restart in the post-operative period/as we are planning for discharge. # COVID--asymptomatic - positive on admission - COVID airborne precautions Dispo: d/c to inpatient rehab Code: DNR/DNI PPX: SCDs, ASA Diet: regular, easy to chew (2) HTN (hypertension): (3) Dementia: (4) Rheumatoid arthritis: (5) Osteoporosis: (6) COVID: Total Time Total Time Spent Total Time Spent (In Minutes): 35 Discharge Plan Discharge Items Patient Disposition: Transfer Inpatient Rehab Fac Reason For Visit: LEFT HIP FRACTURE Discharge Diagnosis: L Hip Fracture Activity: Per Instructions section Non-emergency contact: Primary Care Provider and Surgeon Call non-emergency contact if: you have any medication questions and your symptoms worsen Follow-up/Referrals: Jaison Hinojosa PA-C [Physician Hand [employer]] - 12/05/21 9:15 am Marcin Villanueva [Primary Care Provider] - Diet: Regular Addtl Attending Provider Instructions: Mrs. 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 # closed left hip fracture / transcervical fracture of the left femoral neck - transcervical facture of the left femoral neck -- s/p hemiarthroplasty on 11/19 - weightbearing as tolerated with walker, continue icing, pain control with Tramadol and Tylenol PRN - continue PT, OT while at [facility] - ASA 81mg QD for DVT prophylaxis # stage 2 pressure ulcers of left hip - wound care nurse consulted - routine wound care per bedside nurse - Continue monitoring while at [facility] # delirium --possible UTI - resolved - strong h/o dementia alongside acute events, dirty admission UA/dehydration, post-op/anesthesia likely compounding - Completed 5 days of ceftriaxone on 11/24/21 #Acute blood loss Anemia - on arrival, Hgb 11 -- post-operatively, dropped to around 8.8 -- stable >8 on serial rechecks - Hgb 8.3 on 11/26/21 at last check # Osteoporosis - last DEXA in 2018 consistent with osteoporosis. No hx of fragility fracture until now. - was previously on Prolia, but last dose was > 2 years ago - vitamin D 65.2, appropriate without supplement. - [facility] her osteoporosis, may benefit from resumption of prolia given pathologic fracture - Follow outpatient # dementia - followed by psychiatry in the outpatient setting (Dr. Stewart Madrigal) - continue home medications: memantine, venlafaxine 150mg daily, quetiapine ER 50mg, rivastigmine 1.5mg # HTN. - Continue Amlodipine 5mg qAM -Continue Losartan-HCTZ 50-12.5 QD -Continue Metoprolol 50mg QD # rheumatoid arthritis - med list has sulfasalazine, but she has not been taking this regularly. - did not continue while inpatient, can resume outpatient per PCP/Rheumatology # COVID19 - Asymptomatic and now at 10 day emmett on 11/28/21 - Was positive on admission Pending Studies at Discharge: No Stand-Alone Forms: My [facility] Skilled Items Patient informed of condition?: Yes DNR: Yes Discharge Level of Care: Acute rehab Communicable Disease: No Discharge Prognosis: Stable Lines: None Urinary Catheter: No Medications and DC Order Prescriptions: New tramadol 50 mg Tablet 50 - 100 mg PO Q4H PRN (Reason: pain) 30 Days RF: 0 Continued losartan-hydrochlorothiazide 50-12.5 mg tablet 1 tab PO DAILY PRN (Reason: Hypertension) RF: 0 amlodipine 5 mg tablet 5 mg PO QAM PRN (Reason: Hypertension) RF: 0 metoprolol succinate 50 mg tablet extended release 24 hr 50 mg PO DAILY RF: 0 atorvastatin 10 mg tablet 10 mg PO DAILY RF: 0 aspirin 81 mg tablet,delayed release (DR/EC) 81 mg PO DAILY RF: 0 levocetirizine 5 mg tablet 5 mg PO DAILY RF: 0 venlafaxine 150 mg capsule,extended release 24hr 150 mg PO DAILY Qty: 90 RF: 3 Nuplazid 10 mg tablet 10 mg PO DAILY Qty: 90 RF: 1 rivastigmine tartrate 1.5 mg capsule 1.5 mg PO BID 90 Days Qty: 180 RF: 1 Ensure High Protein Liquid 1 ea PO DAILY Qty: 5688 RF: 6 memantine 28 mg capsule,sprinkle,ER 24hr 28 mg PO HS RF: 0 folic acid 1 mg tablet 1 mg PO DAILY RF: 0 quetiapine 50 mg tablet extended release 24 hr 50 mg PO QAM RF: 0 mirtazapine 15 mg tablet 15 mg PO HS RF: 0 quetiapine 200 mg tablet 200 mg PO HS RF: 0 Discharge Orders: Discharge Order (Routine); Ordered 11/28/21 Ordered By: Yoel Jimenez/Other Patient Handouts: After Hip Replacement: Home Safety Admission Data Admit Date/Time: 11/18/21 16:56 Attending Provider: Fauzia Willson Admit Provider: Esvin Carbajal Primary Care Provider: Marcin Villanueva Other Providers: Esvin Carbajal ; Ricco Ramirez ; [facility], ; [facility] ; Abilio Keen Other Interventions: Discharge Summary Assessment (RN) Last Done: 11/28/21 13:36 Supervising Physician Co-Signing Physician Notes Resident Physician Supervision Note: I independently interviewed and examined the patient and verified the martin history and physical, reviewed labs and image studies and agree with resident Dr. Marlow findings and care plan. Per nursing no concerns overnight. O/E - Was resting comfortably in bed. Aid at the bedside - feeding her breakfast. No respiratory distress Heart rate normal A/P - s/p hip fracture repair - d/c to [facility] for rehab. Resident Activity Tracking Resident Involvement: Resident Care Provided Care Provided: Adult Hospital Medicine
== END 2021-11-28 14:06 | DRG 521 ==
LOC: ED 14:53 → 3E 16:56 → SUATTDRO 16:56 → 3E 22:30

== ENCOUNTER 2021-12-04 11:06 | Inpatient (IN) ==
[2021-12-04] MEDS ORDERED: SODIUM CHLORIDE 0.9% 250 ML IV PRN (11:30)
--- NOTE | 2021-12-04 11:34 | Emergency Department Note ---
Impression & Plan Anemia, Acute hypotension ED Provider Note NAME: MARILOU AGUIRRE AGE: 81 SEX: F : 1940 ARRIVES VIA: Ambulance INFORMANT: Patient, EMS, [facility] documentation ED PROVIDER(S): Marco Antonio Rodrigez DO CHIEF COMPLAINT: Weakness HPI: The patient is an 81-year-old female who presented to the emergency department for evaluation of weakness. The patient has been having ongoing symptoms which been worsening. She is in [facility] for rehab from a left hip fracture status post left hip arthroplasty. Patient was noted to have a low h emoglobin. She was sent to the emergency department for further evaluation. She does have a history of dementia. The patient denies having any chest pain or abdominal pain. She denies having any nausea or vomiting. There was no reported black or bloody bowels. It is unclear if the patient had a rectal exam prior to coming to the emergency department. ROS: See above HPI for pertinent positives & negatives. A total of 10 systems reviewed and were otherwise negative. PAST MEDICAL HISTORY: See Below PAST SURGICAL HISTORY: See Below FAMILY HISTORY: See Below SOCIAL HISTORY: See Below HOME MEDICATIONS: See Below ALLERGIES: See Below VITALS: See Below PHYSICAL EXAMINATION: MEDICAL DECISION MAKING: GENERAL: Patient is awake and alert. She is somewhat anxious appearing. EYES: The conjunctivae are clear. The pupils are round and reactive. EARS, NOSE, MOUTH AND THROAT: The nose is without any evidence of any deformity. NECK: The neck is nontender and supple. RESPIRATORY: Normal respiratory effort is noted there is no evidence of wheezing rhonchi or rales CARDIOVASCULAR: Regular rate and rhythm noted there no murmurs rubs or gallops normal S1 normal S2. GASTROINTESTINAL: The abdomen was soft and nondistended. Rectal exam revealed brown stool which was heme-negative. There was suprapubic tenderness to palp ation. MUSCULOSKELETAL/EXTREMITIES: There is no evidence of gross deformity full range of motion is noted in the hips and shoulders. SKIN: Operative site was noted on the lateral left hip. Wound dressing was in place. There is no dehiscence drainage or erythema. NEUROLOGIC: Patient is awake alert and oriented x3 Triage Nursing notes reviewed. Patient is an 81-year-old female who presented to the emergency department for evaluation of hypotension and weakness. She is currently an inpatient at [facility] for recovery from a hip fracture. The patient was noted to have anemia and was sent to the emergency department for further evaluation. There is no cause for her anemia that could be found on physical exam. Her stool was heme-negative. She was ordered up transfusion in the emergency department because of severe anemia as well as hypotension. I consented the patient via the [id number]. I discussed the patient's laboratory and radiographic studies with her family. I also discussed her case with the on-call [facility] hospitalist group. They have agreed to evaluate the patient in the emergency department for further management and disposition. Vital Signs: reviewed and remarkable for initial hypotension and tachycardia. Differential diagnosis: Infection, dehydration, metabolic abnormality, hypo/hyperglycemia, electrolyte disturbance, anemia, hypoxia, cardiac sources, intracerebral event, toxicologic, neurologic, as well as other pathologies. ER treatment provided: See below Diagnostics interpreted by me: ECG: EKG was obtained in the emergency department. My interpretation is sinus tachycardia [address] segment abnormalities were noted. Low voltage was noted throughout. This was compared to a tracing from November 18, 2021. Cardiac Monitoring: An order was placed for continuous cardiac monitoring. The monitor shows a rate of 111 bpm with sinus tachycardia Laboratory studies: As stated above and show below. Imaging studies: See below Consultation(s): I discussed this case with Dr. Betancourt ED COURSE: I discussed the patient's condition with her daughter. I was able to consent the patient for blood transfusion after speaking with the patient's daughter. Procedures: none Critical Care: I have personally spent greater than 45 minutes of critical care time in the direct management of this patient. This includes bedside care, interpretation of diagnostic studies, and testing, discussion with consultants, patient, and family members, and other required patient management activities. This 45 minutes is in excess of all separately billable procedures. Past Med/Surg History Medical History (Updated 12/04/21 @ 15:25 by Marco Antonio Rodrigez DO) Alzheimer disease Anorexia Dementia Generalized osteoarthritis of multiple sites Hallucinations HTN (hypertension) Osteoporosis Rheumatoid arthritis Seasonal allergies Vitamin D deficiency Surgical History (Updated 12/04/21 @ 14:43 by Meño Betancourt) S/P hip hemiarthroplasty LEFT - 2nd to hip fracture; 11/19/21 (Dr Ricco Ramirez) Family History Sister Dementia Social History Smoking Status: Unknown if ever smoked Hx Alcohol Use: No Preferred Language: Mandarin [place]guillan Communication Ability: Effective Communication Tools: Physical Gestures and Other Pressing Department Supervisor Required: Yes Current Living Situation: Family Feels Safe at Home: Yes Assistive Devices: Walker Allergies Allergies Allergy/AdvReac Type Severity Reaction Status Date / Time No Known Allergies Allergy Verified 12/04/21 14:38 Home Meds Home Medications Medication Instructions Recorded Confirmed aspirin 81 mg tablet,delayed 81 mg PO DAILY 08/18/19 12/04/21 release atorvastatin 10 mg tablet 10 mg PO DAILY 08/18/19 12/04/21 losartan 50 mg-hydrochlorothiazide 1 tab PO DAILY PRN 08/18/19 12/04/21 12.5 mg tablet metoprolol succinate 50 mg 50 mg PO DAILY 08/18/19 12/04/21 tablet,extended release 24 hr folic acid 1 mg tablet 1 mg PO DAILY 11/18/21 12/04/21 memantine 28 mg capsule 28 mg PO 11/18/21 12/04/21 sprinkle,extended release 24hr mirtazapine 15 mg tablet 15 mg PO HS 11/18/21 12/04/21 quetiapine 200 mg tablet 200 mg PO 11/18/21 12/04/21 quetiapine 50 mg tablet,extended 50 mg PO [facility] 11/18/21 12/04/21 release 24 hr acetaminophen 500 mg capsule 1,000 mg PO Q8H PRN 12/04/21 12/04/21 amlodipine 5 mg tablet 5 mg PO DAILY PRN 12/04/21 12/04/21 bisacodyl 10 mg NOT APPLICABLE DAILY PRN 12/04/21 12/04/21 celecoxib 100 mg PO BID 12/04/21 12/04/21 docusate sodium 100 mg PO BID PRN 12/04/21 12/04/21 enoxaparin 20 mg PO DAILY 12/04/21 12/04/21 hydrochlorothiazide 12.5 mg PO DAILY 12/04/21 12/04/21 loratadine 10 mg PO DAILY PRN 12/04/21 12/04/21 magnesium hydroxide 30 ml PO DAILY PRN 12/04/21 12/04/21 polyethylene glycol 3350 1 packet PO DAILY PRN 12/04/21 12/04/21 tramadol 50 mg PO Q4H PRN 12/04/21 12/04/21 tramadol 50 mg tablet 100 mg PO Q4H PRN 12/04/21 12/04/21 Previous Rx's Medication Instructions Recorded food supplemt, lactose-reduced 1 ea PO DAILY #5688 ml 11/21/20 (Ensure High Protein) pimavanserin 10 mg tablet 10 mg PO DAILY #90 tab 02/15/21 (Nuplazid) rivastigmine tartrate 1.5 mg 1.5 mg PO BID 90 Days #180 cap 02/15/21 capsule venlafaxine 150 mg 150 mg PO DAILY #90 cap 02/15/21 capsule,extended release 24 hr Results & Data (ED) Vital Signs Vital Signs - 24 hr 12/04/21 11:26 12/04/21 11:27 12/04/21 11:28 Temperature 36.8 C Temperature Source Oral Pulse Rate 103 H Respiratory Rate 20 Respiratory Effort / Characteristics Non-Labored Spontaneous Respiratory Depth Normal Blood Pressure 117/64 83/56 L Blood Pressure Mean 81 65 Pulse Oximetry 99 Oxygen Delivery Method Room Air Room Air Sepsis Recent Fever Within 48 Hours No Sepsis New/Unexplained Change in Mental Status N/A Sepsis Action Taken by Nursing No Action Required 12/04/21 11:30 12/04/21 12:00 12/04/21 12:30 Temperature Temperature Source Pulse Rate 105 H Respiratory Rate 17 Respiratory Effort / Characteristics Respiratory Depth Blood Pressure 89/60 L 96/75 L 85/51 L Blood Pressure Mean 69 82 62 Pulse Oximetry Oxygen Delivery Method Sepsis Recent Fever Within 48 Hours Sepsis New/Unexplained Change in Mental Status Sepsis Action Taken by Nursing 12/04/21 13:00 12/04/21 13:39 12/04/21 13:45 Temperature 37.8 C H 37.6 C H 37.5 C Temperature Source Oral Oral Oral Pulse Rate 113 H 111 H 122 H Respiratory Rate 18 15 19 Respiratory Effort / Characteristics Respiratory Depth Blood Pressure 101/67 114/83 155/74 H Blood Pressure Mean 78 93 101 Pulse Oximetry 99 98 Oxygen Delivery Method Sepsis Recent Fever Within 48 Hours Sepsis New/Unexplained Change in Mental Status Sepsis Action Taken by Nursing 12/04/21 14:00 12/04/21 14:15 12/04/21 14:30 Temperature 37.5 C 37.5 C 37.6 C H Temperature Source Oral Oral Oral Pulse Rate 111 H 111 H 111 H Respiratory Rate 18 13 18 Respiratory Effort / Characteristics Respiratory Depth Blood Pressure 121/73 119/71 136/87 Blood Pressure Mean 89 87 103 Pulse Oximetry 95 95 97 Oxygen Delivery Method Sepsis Recent Fever Within 48 Hours Sepsis New/Unexplained Change in Mental Status Sepsis Action Taken by Shelter Medications Current Medication List: was personally reviewed by me Laboratory Data Attestation: I reviewed the patient's lab results. Result diagrams: 12/04/21 11:30 12/04/21 11:30 Lab Results 12/04/21 12/04/21 12/04/21 Range/Units 11:21 11:25 11:30 WBC 13.03 H (4.8-10.8) K/uL RBC 1.63 L (4.2-5.4) M/uL Hgb 4.9 L* (12.0-16.0) g/dL Hct 15.8 L* (37-47) % MCV 96.9 (80-100) fL MCH 30.1 (25-34) pg MCHC 31.0 L (32-36) g/dL RDW Std Deviation 55.4 H (36.4-46.3) fL RDW Coeff of Tom 15.8 H (11.5-14.5) % Plt Count 372 (130-400) K/uL MPV 8.4 (7.4-10.4) fL Immature Gran % (Auto) 0.8 % Neut % (Auto) 73.0 % Lymph % (Auto) 16.6 % Sullivan % (Auto) 7.8 % Eos % (Auto) 1.5 % Baso % (Auto) 0.3 % Neut # (Auto) 9.52 H (1.4-6.5) K/uL Lymph # (Auto) 2.16 (1.2-3.4) K/uL Sullivan # (Auto) 1.01 H (0.11-0.59) K/uL Eos # (Auto) 0.19 (0-0.5) K/uL Baso # (Auto) 0.04 (0-0.2) K/uL Immature Gran # (Auto) 0.11 H (0.00-0.02) K/uL PT (9.0-12.0) Seconds INR (0.9-1.1) APTT (21.0-31.0) Seconds PTT Ratio Sodium (136-145) mmol/L Potassium (3.5-5.1) mmol/L Chloride (98-107) mmol/L Carbon Dioxide (21-32) mmol/L Anion Gap (3-11) BUN (6-23) mg/dl Creatinine (0.6-1.2) mg/dl Est Cr Clr Drug Dosing ml/min Est GFR ( Amer) ml/min Est GFR (Non-Af Amer) ml/min BUN/Creatinine Ratio (10-20) Glucose (70-99(Fasting)) mg/dl Calcium (8.5-10.1) mg/dl Iron (35-150) mcg/dl TIBC (250-450) mcg/dl Unsaturated IBC (155-355) mcg/dl Transferrin % Sat (15-50) % Ferritin (8-388) ng/ml Total Bilirubin (0.2-1.0) mg/dl AST (13-39) U/L ALT (7-52) U/L Alkaline Phosphatase (34-104) U/L Troponin I High Sens (0-14) pg/ml Total Protein (6.0-8.3) gm/dl Albumin (3.4-5.0) gm/dl Globulin (2.5-4.0) gm/dl Albumin/Globulin Ratio (0.9-2) Lipase (11-82) U/L Vitamin B12 (180-914) pg/ml Folate (>5.38) ng/ml Urine Color Urine Appearance (Clear) Urine pH (4.5-7.5) Ur Specific [place] (1.000-1.030) Urine Protein (Negative) Urine Glucose (UA) (Negative) Urine Ketones (Negative) Urine Blood (Negative) Urine Nitrite (Negative) Urine Bilirubin (Negative) Urine Urobilinogen (Negative) Ur Leukocyte Esterase (Negative) Urine WBC (Auto) (0-5) /hpf U Hyaline Cast (Auto) (0-5) /lpf U Epithel Cells (Auto) (0-5) /lpf Urine Bacteria (Auto) (Negative) SARS-CoV-2, RNA, NAAT NEGATIVE (NEGATIVE) Blood Type AB Positive Blood Type Recheck Antibody Screen NEGATIVE Crossmatch See Detail 12/04/21 12/04/21 12/04/21 Range/Units 11:30 11:30 11:30 WBC (4.8-10.8) K/uL RBC (4.2-5.4) M/uL Hgb (12.0-16.0) g/dL Hct (37-47) % MCV (80-100) fL MCH (25-34) pg MCHC (32-36) g/dL RDW Std Deviation (36.4-46.3) fL RDW Coeff of Tom (11.5-14.5) % Plt Count (130-400) K/uL MPV (7.4-10.4) fL Immature Gran % (Auto) % Neut % (Auto) % Lymph % (Auto) % Sullivan % (Auto) % Eos % (Auto) % Baso % (Auto) % Neut # (Auto) (1.4-6.5) K/uL Lymph # (Auto) (1.2-3.4) K/uL Sullivan # (Auto) (0.11-0.59) K/uL Eos # (Auto) (0-0.5) K/uL Baso # (Auto) (0-0.2) K/uL Immature Gran # (Auto) (0.00-0.02) K/uL PT 10.4 (9.0-12.0) Seconds INR 1.0 (0.9-1.1) APTT 21.8 (21.0-31.0) Seconds PTT Ratio 0.8 Sodium 138 (136-145) mmol/L Potassium 4.4 (3.5-5.1) mmol/L Chloride 108 H (98-107) mmol/L Carbon Dioxide 23 (21-32) mmol/L Anion Gap 7 (3-11) BUN 96 H (6-23) mg/dl Creatinine 1.19 (0.6-1.2) mg/dl Est Cr Clr Drug Dosing 30.9 ml/min Est GFR ( Amer) 48.9 ml/min Est GFR (Non-Af Amer) 42.2 ml/min BUN/Creatinine Ratio 80.7 H (10-20) Glucose 119 H (70-99(Fasting)) mg/dl Calcium 8.1 L (8.5-10.1) mg/dl Iron 87 (35-150) mcg/dl TIBC 231 L (250-450) mcg/dl Unsaturated IBC 144 L (155-355) mcg/dl Transferrin % Sat 38 (15-50) % Ferritin 76.5 (8-388) ng/ml Total Bilirubin 0.2 (0.2-1.0) mg/dl AST 30 (13-39) U/L ALT 26 (7-52) U/L Alkaline Phosphatase 91 (34-104) U/L Troponin I High Sens 5.9 (0-14) pg/ml Total Protein 5.4 L (6.0-8.3) gm/dl Albumin 2.9 L (3.4-5.0) gm/dl Globulin 2.5 (2.5-4.0) gm/dl Albumin/Globulin Ratio 1.2 (0.9-2) Lipase 32 (11-82) U/L Vitamin B12 (180-914) pg/ml Folate (>5.38) ng/ml Urine Color Urine Appearance (Clear) Urine pH (4.5-7.5) Ur Specific [place] (1.000-1.030) Urine Protein (Negative) Urine Glucose (UA) (Negative) Urine Ketones (Negative) Urine Blood (Negative) Urine Nitrite (Negative) Urine Bilirubin (Negative) Urine Urobilinogen (Negative) Ur Leukocyte Esterase (Negative) Urine WBC (Auto) (0-5) /hpf U Hyaline Cast (Auto) (0-5) /lpf U Epithel Cells (Auto) (0-5) /lpf Urine Bacteria (Auto) (Negative) SARS-CoV-2, RNA, NAAT (NEGATIVE) Blood Type Blood Type Recheck Antibody Screen Crossmatch 12/04/21 12/04/21 12/04/21 Range/Units 11:30 12:00 13:51 WBC (4.8-10.8) K/uL RBC (4.2-5.4) M/uL Hgb (12.0-16.0) g/dL Hct (37-47) % MCV (80-100) fL MCH (25-34) pg MCHC (32-36) g/dL RDW Std Deviation (36.4-46.3) fL RDW Coeff of Tom (11.5-14.5) % Plt Count (130-400) K/uL MPV (7.4-10.4) fL Immature Gran % (Auto) % Neut % (Auto) % Lymph % (Auto) % Sullivan % (Auto) % Eos % (Auto) % Baso % (Auto) % Neut # (Auto) (1.4-6.5) K/uL Lymph # (Auto) (1.2-3.4) K/uL Sullivan # (Auto) (0.11-0.59) K/uL Eos # (Auto) (0-0.5) K/uL Baso # (Auto) (0-0.2) K/uL Immature Gran # (Auto) (0.00-0.02) K/uL PT (9.0-12.0) Seconds INR (0.9-1.1) APTT (21.0-31.0) Seconds PTT Ratio Sodium (136-145) mmol/L Potassium (3.5-5.1) mmol/L Chloride (98-107) mmol/L Carbon Dioxide (21-32) mmol/L Anion Gap (3-11) BUN (6-23) mg/dl Creatinine (0.6-1.2) mg/dl Est Cr Clr Drug Dosing ml/min Est GFR ( Amer) ml/min Est GFR (Non-Af Amer) ml/min BUN/Creatinine Ratio (10-20) Glucose (70-99(Fasting)) mg/dl Calcium (8.5-10.1) mg/dl Iron (35-150) mcg/dl TIBC (250-450) mcg/dl Unsaturated IBC (155-355) mcg/dl Transferrin % Sat (15-50) % Ferritin (8-388) ng/ml Total Bilirubin (0.2-1.0) mg/dl AST (13-39) U/L ALT (7-52) U/L Alkaline Phosphatase (34-104) U/L Troponin I High Sens (0-14) pg/ml Total Protein (6.0-8.3) gm/dl Albumin (3.4-5.0) gm/dl Globulin (2.5-4.0) gm/dl Albumin/Globulin Ratio (0.9-2) Lipase (11-82) U/L Vitamin B12 322 (180-914) pg/ml Folate > 22.30 (>5.38) ng/ml Urine Color Yellow Urine Appearance Clear (Clear) Urine pH 5.5 (4.5-7.5) Ur Specific [place] 1.026 (1.000-1.030) Urine Protein Negative (Negative) Urine Glucose (UA) Negative (Negative) Urine Ketones Negative (Negative) Urine Blood Negative (Negative) Urine Nitrite Negative (Negative) Urine Bilirubin Negative (Negative) Urine Urobilinogen Negative (Negative) Ur Leukocyte Esterase 2+ H (Negative) Urine WBC (Auto) >30 H (0-5) /hpf U Hyaline Cast (Auto) 1-5 (0-5) /lpf U Epithel Cells (Auto) 5-10 H (0-5) /lpf Urine Bacteria (Auto) Negative (Negative) SARS-CoV-2, RNA, NAAT (NEGATIVE) Blood Type Blood Type Recheck AB Positive Antibody Screen Crossmatch Administered Medications Sodium Chloride (Nss) 250 mls @ 15 mls/hr IV .[id number] PRN PRN Reason: For Transfusion Stop: 12/04/21 21:31 Last Admin: 12/04/21 11:45 Dose: 15 mls/hr Documented by: [id number] Discontinued Medications Sodium Chloride (Nss 1000ml) 500 mls @ 999 mls/hr IV .Q31M ONE Stop: 12/04/21 13:17 Last Infusion: 12/04/21 14:18 Dose: 999 mls/hr Documented by: [id number] Admin: 12/04/21 12:49 Dose: 999 mls/hr Documented by: [id number] Ioversol (Optiray 320 100ml) 95 ml IV ONCE ONE Stop: 12/04/21 13:25 Last Admin: 12/04/21 13:26 Dose: 95 ml Documented by: [id number] Imaging Data Radiologist's Impression: Chest X-Ray 12/04/21 11:10 XR chest 1V portable CLINICAL HISTORY: Chest Pain. COMPARISON STUDY: No previous studies for comparison. TECHNIQUE: 1 view of the chest FINDINGS: Single frontal view of the chest demonstrates the cardiomediastinal silhouette to be within normal limits. The lungs are clear of alveolar opacities. There is no evidence for pleural effusion. There is no evidence for vascular congestion. There is no acute osseous pathology. IMPRESSION: 1. No acute cardiopulmonary disease. ACT 112: Negative or not required by law. Electronically signed by: Kirill Maldonado M.D. 12/04/2021 11:45 AM Abdomen/Pelvis CT 12/04/21 11:30 CT SCAN OF THE ABDOMEN AND PELVIS WITH IV CONTRAST CLINICAL HISTORY: General is abdominal pain. Anemia. COMPARISON STUDY: No priors. TECHNIQUE: Following the IV administration of 95 cc of Optiray 320, CT scan of the abdomen and pelvis is performed from the lung bases to the proximal femora. Images are reviewed in the axial, sagittal, and coronal planes. IV contrast was administered without complication. A dose lowering technique was utilized adhering to the principles of ALARA. Examination is degraded by motion artifact, as well as by streak artifact from the arms which could not elevated above the abdomen. FINDINGS: Lung bases: The heart is normal in size and without pericardial effusion. The lung bases are clear noting dependent scarring/atelectasis. There is a small hiatal hernia. Circumferential wall thickening is suggested in the distal centimeters. Liver: The contrast-enhanced liver is normal in size, contour, and attenuation. There is no intrahepatic biliary ductal dilatation. The hepatic veins and portal veins are patent. Gallbladder: Unremarkable. Spleen: Normal in size and attenuation. There is a 12 mm splenic artery aneurysm seen on image #88. Pancreas: Moderately atrophic and grossly unremarkable. Adrenal glands: Unremarkable. Kidneys: The contrast enhanced kidneys are atrophic and without hydronephrosis. The kidneys enhance symmetrically. There is a 4.3 cm right renal cyst. Additional subcentimeter cortical hypodensities also likely represent cysts but are too small for definitive characterization. Abdominal vasculature: There is moderate atherosclerotic calcification mild ectasia of the abdominal aorta. Bowel: There is moderate colonic fecal retention. No bowel obstruction is seen. There is mild diverticulosis of the right colon without CT evidence of acute diverticulitis. A duodenal diverticulum is incidentally noted. The appendix is well-visualized and normal. Peritoneum/retroperitoneum: No retroperitoneal hemorrhage is identified. There is no intraperitoneal free air or abdominal ascites. Lymphadenopathy: None. Pelvic viscera: Evaluation of the pelvis is degraded by streak artifact from a left hip arthroplasty. The bladder, uterus, and adnexa are normal as visualized. Skeletal structures: The skeletal structures are osteopenic. No lytic or blastic lesions are seen. There is mild lumbosacral spondylosis. A left hip arthroplasty is in place. Soft tissue induration overlies the left hip and there is a fluid collection partially visualized around the proximal left femur. IMPRESSION: 1. No acute infectious or inflammatory findings are identified in the abdomen or pelvis. 2. Soft tissue induration overlies the left hip and a fluid collection is partially visualized around the left proximal femur femur. This may represent expected postoperative change and a seroma/hematoma. See report of CT scan of the left hip performed concurrently for detailed findings. 3. The distal esophagus appears circumferentially thick walled. Correlate clinically for evidence of esophagitis. 4. There is a 12 mm splenic artery aneurysm. 5. Additional findings as above. ACT 112: Negative or not required by law. Electronically signed by: William Keen M.D. 12/04/2021 1:[address] 12/04/21 12:25 CT hip LT wo con HISTORY: 81 years-old Female anemia, recent surgery acute pain of the left hip with recent surgery COMPARISON: Pelvis and left hip radiographs 11/18/2021 TECHNIQUE: Multiple axial CT images of the left hip were obtained following the intravenous administration of 95 mL Optiray 320. A dose lowering technique was used consistent with the principals of ALARA. FINDINGS: Calcified uterine fibroids. Moderate fecal retention. No acute intrapelvic abnormality identified. Satisfactory alignment of the left hip total joint arthroplasty. Streak artifact from the hardware limits the study. No definite acute fracture or dislocation is identified. The imaged left hemipelvis also appears intact. There is a peripherally enhancing fluid collection along the posterior margin of the proximal left femur at the level of the lesser trochanter measuring up to 15 x 1.5 x 6.5 cm in transverse, AP and craniocaudal dimensions. IMPRESSION: 1. Unremarkable appearance of the left hip total joint arthroplasty. No dislocation or acute fracture. 2. Indeterminate fluid collection posterior to the proximal left femur, possibly a seroma. ACT 112: Negative or not required by law. The above report was generated using voice recognition software. It may contain grammatical, syntax or spelling errors. Electronically signed by: Leonardo Sarmiento M.D. 12/04/2021 1:41 PM Discharge Plan Visit Data Chief Complaint: Abnormal Labs/Diagnostic Testing ED Provider: Marco Antonio Rodrigez Discharge Problem: Anemia, Acute hypotension Patient Disposition: Being Evaluated by Hospitalist Forms Stand Alone Forms: My [facility] Prescriptions Prescriptions: No Action losartan-hydrochlorothiazide 50-12.5 mg tablet 1 tab PO DAILY PRN (Reason: Hypertension) RF: 0 metoprolol succinate 50 mg tablet extended release 24 hr 50 mg PO DAILY RF: 0 atorvastatin 10 mg tablet 10 mg PO DAILY RF: 0 aspirin 81 mg tablet,delayed release (DR/EC) 81 mg PO DAILY RF: 0 venlafaxine 150 mg capsule,extended release 24hr 150 mg PO DAILY Qty: 90 RF: 3 Nuplazid 10 mg tablet 10 mg PO DAILY Qty: 90 RF: 1 rivastigmine tartrate 1.5 mg capsule 1.5 mg PO BID 90 Days Qty: 180 RF: 1 Ensure High Protein Liquid 1 ea PO DAILY Qty: 5688 RF: 6 memantine 28 mg capsule,sprinkle,ER 24hr 28 mg PO HS RF: 0 folic acid 1 mg tablet 1 mg PO DAILY RF: 0 quetiapine 50 mg tablet extended release 24 hr 50 mg PO QAM RF: 0 mirtazapine 15 mg tablet 15 mg PO HS RF: 0 quetiapine 200 mg tablet 200 mg PO HS RF: 0 acetaminophen 500 mg capsule 1,000 mg PO Q8H PRN (Reason: Unknown) RF: 0 celecoxib 100 MG capsule 100 mg PO BID RF: 0 docusate sodium 100 MG capsule 100 mg PO BID PRN (Reason: Constipation) RF: 0 enoxaparin 20 MG solution 20 mg PO DAILY RF: 0 hydrochlorothiazide 12.5 MG capsule 12.5 mg PO DAILY RF: 0 amlodipine 5 mg tablet 5 mg PO DAILY PRN (Reason: Unknown) RF: 0 tramadol 50 mg Tablet 100 mg PO Q4H PRN (Reason: Unknown) RF: 0 bisacodyl 10 MG suppository 10 mg Not Applicable DAILY PRN (Reason: Unknown) RF: 0 loratadine 10 MG tablet 10 mg PO DAILY PRN (Reason: Unknown) RF: 0 magnesium hydroxide 30 ML 30 ml PO DAILY PRN (Reason: Unknown) RF: 0 polyethylene glycol 3350 1 PACKET packet 1 packet PO DAILY PRN (Reason: Unknown) RF: 0 tramadol 50 MG tablet 50 mg PO Q4H PRN (Reason: Unknown) RF: 0 Referrals Referrals: Marcin Villanueva [Physician] -
--- NOTE | 2021-12-04 11:47 | XRay Report ---
XR chest 1V portable CLINICAL HISTORY: Chest Pain. COMPARISON STUDY: No previous studies for comparison. TECHNIQUE: 1 view of the chest FINDINGS: Single frontal view of the chest demonstrates the cardiomediastinal silhouette to be within normal li mits. The lungs are clear of alveolar opacities. There is no evidence for pleural effusion. There is no evidence for vascular congestion. There is no acute osseous pathology. IMPRESSION: 1. No acute cardiopulmonary disease. ACT 112: Negative or not required by law. Electronically signed by: Kirill Maldonado M.D. 12/04/2021 11:45 AM
[2021-12-04 11:52] LABS: Hematocrit (blood only) 15.8 % (37-47); Hemoglobin 4.9 g/dL (12.0-16.0); Mean Corpuscular Hemoglobin 30.1 pg (25-34); Mean Corpuscular Volume 96.9 fL (80-100); Mean Platelet Volume 8.4 fL (7.4-10.4); Platelet Count 372 K/uL (130-400); RDW Coefficient of Variation 15.8 % (11.5-14.5); RDW Standard Deviation 55.4 fL (36.4-46.3); Red Blood Count 1.63 M/uL (4.2-5.4); White Blood Count 13.03 K/uL (4.8-10.8)
[2021-12-04 11:53] LABS: Partial Thromboplastin Ratio 0.8; Partial Thromboplastin Time 21.8 Seconds (21.0-31.0); Prothrombin Time 10.4 Seconds (9.0-12.0)
[2021-12-04 12:05] LABS: Albumin Globulin Ratio 1.2 (0.9-2); Albumin Level 2.9 gm/dl (3.4-5.0); BUN Creatinine Ratio 80.7 (10-20); Bilirubin,Total 0.2 mg/dl (0.2-1.0); Calcium 8.1 mg/dl (8.5-10.1); Creatinine Clr Calc Pharmacy 30.9 ml/min; Est GFR (African American) 48.9 ml/min; Est GFR (Non-African American) 42.2 ml/min; Globulin 2.5 gm/dl (2.5-4.0); Potassium 4.4 mmol/L (3.5-5.1); Total Protein 5.4 gm/dl (6.0-8.3)
[2021-12-04 12:06] LABS: Troponin I High Sensitivity 5.9 pg/ml (0-14)
[2021-12-04 12:19] LABS: Basophils # (auto) 0.04 K/uL (0-0.2); Basophils % (auto) 0.3 %; Eosinophils # (auto) 0.19 K/uL (0-0.5); Eosinophils % (auto) 1.5 %; Immature Granulocytes # (auto) 0.11 K/uL (0.00-0.02); Immature Granulocytes % (auto) 0.8 %; Lymphocytes # (auto) 2.16 K/uL (1.2-3.4); Lymphocytes % (auto) 16.6 %; Monocytes # (auto) 1.01 K/uL (0.11-0.59); Monocytes % (auto) 7.8 %; Neutrophils # (auto) 9.52 K/uL (1.4-6.5)
[2021-12-04] MEDS ORDERED: SODIUM CHLORIDE 0.9% 1000ML 500 ML IV ONE (12:47)
--- NOTE | 2021-12-04 13:23 | History & Physical Report ---
Date of Service December 04, 2021 Assessment & Plan (1) Acute blood loss anemia: Plan: Discharge hemoglobin from prior stay was 8.3. Severe decrease since that time with presenting Hb 4.9 today along with hypotension and tachycardia. Hypotension improved s/p IV fluids followed by PRBCs. Source - GI bleeding vs hematoma formation near her left hip operative site. No evidence of retroperitoneal bleeding on CT a/p. I have asked orthopedics from [facility] to consult to weigh in on the CT findings and ?seroma vs hematoma near the operative site. I have asked [facility] to consult for consideration of EGD. She has a severe prerenal azotemia, her esophagus is inflamed on CT, and she has numerous risk factors for GI bleeding (lovenox, asa, celebrex, etc). Place on telemetry. Tx 2 units PRBCs with H/H 1 hour post-transfusion. Then serial CBCs. NPO. IV PPI drip. Check Fe studies, B12, folate to be complete. (2) Prerenal azotemia: Plan: Severe, with BUN nearly 100 and Cr just over 1. Concerning for upper GI bleeding. See above. (3) Tachycardia: Plan: Likely due to severe acute blood loss anemia. Fluids/PRBCs. Telemetry. Theoretically could be a sign of PE but doubtful given her stable pulmonary status and normal O2 sats. Check dopplers of legs in light of recent left hip fracture with repair. (4) S/P hip hemiarthroplasty: Plan: left hip fracture s/p ORIF 11/19 - Dr Ricco Ramirez. overall her operative site is stable. (5) Seroma: Plan: left hip region. hematoma vs abscess also possible but felt to be less likely. await orthopedic opinion. (6) Dementia: Plan: advanced, with superimposed acute encephalopathy. see below. (7) Rheumatoid arthritis: Plan: not on medications for such at this time. (8) HTN (hypertension): Plan: hold all anti-hypertensives at this time given her tachycardia/hypotension. (9) COVID: Plan: recently tested + for such during her hip fracture admission. was asymptomatic. 10+ days have elapsed since that test. no need for airborne isolation at this time. (10) Acute encephalopathy: Plan: suspect "hospital psychosis", uremia, etc. can't rule out infectious/metabolic factor(s). supportive care. continue usual antipsychotics. Plan: daughter updated by phone extensively History of Present Illness Chief Complaint: anemia Primary Care Provider: [facility] 81yo female with advanced dementia, HTN, and hyperlipidemia. She was recently hospitalized from 11/18 to 11/28 for left hip fracture s/p ORIF by Dr Ricco Ramirez ([facility]) on 11/19. Her course was complicated by asymptomatic COVID-19 infection and acute blood loss anemia with hemoglobin in the ~8.5 range post-op for several days. On 11/28/21 she was transferred to [facility] for acute inpatient rehab. Due to her dementia as well as Tanzanian being her beaver language no information could be obtained from the patient directly and no family was available for additional information. However, I did speak with her daughter by phone shortly after my bedside assessment. Her daughter reported that on 12/02/21 her hemoglobin was 8.4, and upon recheck today was 5.5. Therefore she was sent to [facility] ER for evaluation. Hb here at [facility] was 4.9. By the ER attending's report her stool was heme negative. The patient's daughter states that her rehab at [facility] was going ok. She had been eating/drinking fairly. There had been no overt GI bleeding or any bleeding from the left hip operative site. Daughter did mention that ever since the hospitalization for the hip fracture she has "not been herself" with worsening confusion above/beyond her typical baseline. Allergies Allergy/AdvReac Type Severity Reaction Status Date / Time No Known Allergies Allergy Verified 12/04/21 14:38 Home Medications Medication Instructions Recorded Confirmed Type aspirin 81 mg tablet,delayed 81 mg PO DAILY 08/18/19 12/04/21 History release atorvastatin 10 mg tablet 10 mg PO DAILY 08/18/19 12/04/21 History losartan 50 mg-hydrochlorothiazide 1 tab PO DAILY PRN 08/18/19 12/04/21 History 12.5 mg tablet metoprolol succinate 50 mg 50 mg PO DAILY 08/18/19 12/04/21 History tablet,extended release 24 hr food supplemt, lactose-reduced 1 ea PO DAILY #5688 ml 11/21/20 12/04/21 Rx (Ensure High Protein) pimavanserin 10 mg tablet 10 mg PO DAILY #90 tab 02/15/21 12/04/21 Rx (Nuplazid) rivastigmine tartrate 1.5 mg 1.5 mg PO BID 90 Days #180 cap 02/15/21 12/04/21 Rx capsule venlafaxine 150 mg 150 mg PO DAILY #90 cap 02/15/21 12/04/21 Rx capsule,extended release 24 hr folic acid 1 mg tablet 1 mg PO DAILY 11/18/21 12/04/21 History memantine 28 mg capsule 28 mg PO HS 11/18/21 12/04/21 History sprinkle,extended release 24hr mirtazapine 15 mg tablet 15 mg PO HS 11/18/21 12/04/21 History quetiapine 200 mg tablet 200 mg PO HS 11/18/21 12/04/21 History quetiapine 50 mg tablet,extended 50 mg PO QA 11/18/21 12/04/21 History release 24 hr acetaminophen 500 mg capsule 1,000 mg PO Q8H PRN 12/04/21 12/04/21 History amlodipine 5 mg tablet 5 mg PO DAILY PRN 12/04/21 12/04/21 History bisacodyl 10 mg NOT APPLICABLE DAILY PRN 12/04/21 12/04/21 History celecoxib 100 mg PO BID 12/04/21 12/04/21 History docusate sodium 100 mg PO BID PRN 12/04/21 12/04/21 History enoxaparin 20 mg PO DAILY 12/04/21 12/04/21 History hydrochlorothiazide 12.5 mg PO DAILY 12/04/21 12/04/21 History loratadine 10 mg PO DAILY PRN 12/04/21 12/04/21 History magnesium hydroxide 30 ml PO DAILY PRN 12/04/21 12/04/21 History polyethylene glycol 3350 1 packet PO DAILY PRN 12/04/21 12/04/21 History tramadol 50 mg PO Q4H PRN 12/04/21 12/04/21 History tramadol 50 mg tablet 100 mg PO Q4H PRN 12/04/21 12/04/21 History Past Med/Surg History Medical History (Updated 12/04/21 @ 22:50 by Meño Betancourt) Alzheimer disease Dementia Generalized osteoarthritis of multiple sites Hallucinations HTN (hypertension) Osteoporosis Rheumatoid arthritis Seasonal allergies Vitamin D deficiency Surgical History S/P hip hemiarthroplasty LEFT - 2nd to hip fracture; 11/19/21 (Dr Ricco Ramirez) Family History Sister Dementia Social History (Updated 12/04/21 @ 22:47 by Meño Betancourt) Smoking Status: Never smoker Second Hand Exposure: No; Hx Alcohol Use: No Hx Substance Use: No Preferred Language: Mandarin [place] Communication Ability: Unable Communication Tools: IPad Electrical Continuity Tester Required: Yes Beliefs That Will Affect Care: None Current Living Situation: Rehab Current Living Situation Comment: [facility] Other Information That Helps Us Care for You: No other: was living with family prior to her recent hip fracture Feels Safe at Home: Declines to Answer Assistive Devices: None Review of Systems Review of Systems: Unobtainable due to cognitive status Physical Exam Physical Exam: gen - NAD, speaking in [place]anian, does not follow commands skin - generalized pallor; left hip incision largely clean, scant 1mm area of dehiscence, abrasion more anterior thigh; no drainage from either location neck - no JVD, no masses, no lymph nodes mouth - MMM eyes - PERRL heart - tachy, s1 s2, no murmur lungs - CTA b/l, no rales abd - soft NT ND BS+ ext - no edema, pulses 2+ b/l musculo - with passive ROM of left hip I could not elicit any pain ANGEL - deferred (completed by ER attending) neuro - no facial droop; moves all 4 limbs spontaneously psych - awake but does not follow commands; pushes my hands away while listening to her heart Results & Data Results & Data ([facility]) Vital Signs (Past 12 Hours) Vital Signs Temp Pulse Resp BP Pulse Ox 12/04/21 12:30 105 H 17 85/51 L 12/04/21 12:00 96/75 L 12/04/21 11:30 89/60 L 12/04/21 11:28 83/56 L 12/04/21 11:27 36.8 C 103 H 20 117/64 99 Laboratory Results Laboratory Results - last 24 hr 12/04/21 12/04/21 12/04/21 11:21 11:25 11:30 WBC 13.03 H RBC 1.63 L Hgb 4.9 L* Hct 15.8 L* MCV 96.9 MCH 30.1 MCHC 31.0 L RDW Std Deviation 55.4 H RDW Coeff of Tom 15.8 H Plt Count 372 MPV 8.4 Immature Gran % (Auto) 0.8 Neut % (Auto) 73.0 Lymph % (Auto) 16.6 Hemphill % (Auto) 7.8 Eos % (Auto) 1.5 Baso % (Auto) 0.3 Neut # (Auto) 9.52 H Lymph # (Auto) 2.16 Hemphill # (Auto) 1.01 H Eos # (Auto) 0.19 Baso # (Auto) 0.04 Immature Gran # (Auto) 0.11 H PT INR APTT PTT Ratio Sodium Potassium Chloride Carbon Dioxide Anion Gap BUN Creatinine Est Cr Clr Drug Dosing Est GFR ( Amer) Est GFR (Non-Af Amer) BUN/Creatinine Ratio Glucose Calcium Iron TIBC Unsaturated IBC Transferrin % Sat Ferritin Total Bilirubin AST ALT Alkaline Phosphatase Troponin I High Sens Total Protein Albumin Globulin Albumin/Globulin Ratio Lipase Vitamin B12 Folate Urine Color Urine Appearance Urine pH Ur Specific [place] Urine Protein Urine Glucose (UA) Urine Ketones Urine Blood Urine Nitrite Urine Bilirubin Urine Urobilinogen Ur Leukocyte Esterase SARS-CoV-2, RNA, NAAT NEGATIVE Blood Type AB Positive Blood Type Recheck Antibody Screen NEGATIVE Crossmatch See Detail 12/04/21 12/04/21 12/04/21 11:30 11:30 11:30 WBC RBC Hgb Hct MCV MCH MCHC RDW Std Deviation RDW Coeff of Tom Plt Count MPV Immature Gran % (Auto) Neut % (Auto) Lymph % (Auto) Hemphill % (Auto) Eos % (Auto) Baso % (Auto) Neut # (Auto) Lymph # (Auto) [place]ill # (Auto) Eos # (Auto) Baso # (Auto) Immature Gran # (Auto) PT 10.4 INR 1.0 APTT 21.8 PTT Ratio 0.8 Sodium 138 Potassium 4.4 Chloride 108 H Carbon Dioxide 23 Anion Gap 7 BUN 96 H Creatinine 1.19 Est Cr Clr Drug Dosing 30.9 Est GFR ( Amer) 48.9 Est GFR (Non-Af Amer) 42.2 BUN/Creatinine Ratio 80.7 H Glucose 119 H Calcium 8.1 L Iron 87 TIBC 231 L Unsaturated IBC 144 L Transferrin % Sat 38 Ferritin 76.5 Total Bilirubin 0.2 AST 30 ALT 26 Alkaline Phosphatase 91 Troponin I High Sens 5.9 Total Protein 5.4 L Albumin 2.9 L Globulin 2.5 Albumin/Globulin Ratio 1.2 Lipase 32 Vitamin B12 Folate Urine Color Urine Appearance Urine pH Ur Specific [place] Urine Protein Urine Glucose (UA) Urine Ketones Urine Blood Urine Nitrite Urine Bilirubin Urine Urobilinogen Ur Leukocyte Esterase SARS-CoV-2, RNA, NAAT Blood Type Blood Type Recheck Antibody Screen Crossmatch 12/04/21 12/04/21 12/04/21 11:30 12:00 13:51 WBC RBC Hgb Hct MCV MCH MCHC RDW Std Deviation RDW Coeff of Tom Plt Count MPV Immature Gran % (Auto) Neut % (Auto) Lymph % (Auto) [place] % (Auto) Eos % (Auto) Baso % (Auto) Neut # (Auto) Lymph # (Auto) [place] # (Auto) Eos # (Auto) Baso # (Auto) Immature Gran # (Auto) PT INR APTT PTT Ratio Sodium Potassium Chloride Carbon Dioxide Anion Gap BUN Creatinine Est Cr Clr Drug Dosing Est GFR ( Amer) Est GFR (Non-Af Amer) BUN/Creatinine Ratio Glucose Calcium Iron TIBC Unsaturated IBC Transferrin % Sat Ferritin Total Bilirubin AST ALT Alkaline Phosphatase Troponin I High Sens Total Protein Albumin Globulin Albumin/Globulin Ratio Lipase Vitamin B12 322 Folate > 22.30 Urine Color Pending Urine Appearance Pending Urine pH Pending Ur Specific [place] Pending Urine Protein Pending Urine Glucose (UA) Pending Urine Ketones Pending Urine Blood Pending Urine Nitrite Pending Urine Bilirubin Pending Urine Urobilinogen Pending Ur Leukocyte Esterase Pending SARS-CoV-2, RNA, NAAT Blood Type Blood Type Recheck AB Positive Antibody Screen Crossmatch Diagnostic Findings Chest X-Ray 12/04/21 11:10 XR chest 1V portable CLINICAL HISTORY: Chest Pain. COMPARISON STUDY: No previous studies for comparison. TECHNIQUE: 1 view of the chest FINDINGS: Single frontal view of the chest demonstrates the cardiomediastinal silhouette to be within normal limits. The lungs are clear of alveolar opacities. There is no evidence for pleural effusion. There is no evidence for vascular congestion. There is no acute osseous pathology. IMPRESSION: 1. No acute cardiopulmonary disease. ACT 112: Negative or not required by law. Electronically signed by: Kirill Maldonado M.D. 12/04/2021 11:45 AM Abdomen/Pelvis CT 12/04/21 11:30 CT SCAN OF THE ABDOMEN AND PELVIS WITH IV CONTRAST CLINICAL HISTORY: General is abdominal pain. Anemia. COMPARISON STUDY: No priors. TECHNIQUE: Following the IV administration of 95 cc of Optiray 320, CT scan of the abdomen and pelvis is performed from the lung bases to the proximal femora. Images are reviewed in the axial, sagittal, and coronal planes. IV contrast was administered without complication. A dose lowering technique was utilized adhering to the principles of ALARA. Examination is degraded by motion artifact, as well as by streak artifact from the arms which could not elevated above the abdomen. FINDINGS: Lung bases: The heart is normal in size and without pericardial effusion. The lung bases are clear noting dependent scarring/atelectasis. There is a small hiatal hernia. Circumferential wall thickening is suggested in the distal ce ntimeters. Liver: The contrast-enhanced liver is normal in size, contour, and attenuation. There is no intrahepatic biliary ductal dilatation. The hepatic veins and portal veins are patent. Gallbladder: Unremarkable. Spleen: Normal in size and attenuation. There is a 12 mm splenic artery aneurysm seen on image #88. Pancreas: Moderately atrophic and grossly unremarkable. Adrenal glands: Unremarkable. Kidneys: The contrast enhanced kidneys are atrophic and without hydronephrosis. The kidneys enhance symmetrically. There is a 4.3 cm right renal cyst. Additional subcentimeter cortical hypodensities also likely represent cysts but are too small for definitive characterization. Abdominal vasculature: There is moderate atherosclerotic calcification mild ectasia of the abdominal aorta. Bowel: There is moderate colonic fecal retention. No bowel obstruction is seen. There is mild diverticulosis of the right colon without CT evidence of acute diverticulitis. A duodenal diverticulum is incidentally noted. The appendix is well-visualized and normal. Peritoneum/retroperitoneum: No retroperitoneal hemorrhage is identified. There is no intraperitoneal free air or abdominal ascites. Lymphadenopathy: None. Pelvic viscera: Evaluation of the pelvis is degraded by streak artifact from a left hip arthroplasty. The bladder, uterus, and adnexa are normal as visualized. Skeletal structures: The skeletal structures are osteopenic. No lytic or blastic lesions are seen. There is mild lumbosacral spondylosis. A left hip arthroplasty is in place. Soft tissue induration overlies the left hip and there is a fluid collection partially visualized around the proximal left femur. IMPRESSION: 1. No acute infectious or inflammatory findings are identified in the abdomen or pelvis. 2. Soft tissue induration overlies the left hip and a fluid collection is partially visualized around the left proximal femur femur. This may represent expected postoperative change and a seroma/hematoma. See report of CT scan of the left hip performed concurrently for detailed findings. 3. The distal esophagus appears circumferentially thick walled. Correlate clinically for evidence of esophagitis. 4. There is a 12 mm splenic artery aneurysm. 5. Additional findings as above. ACT 112: Negative or not required by law. Electronically signed by: William Keen M.D. 12/04/2021 1:[address] 12/04/21 12:25 CT hip LT wo con HISTORY: 81 years-old Female anemia, recent surgery acute pain of the left hip with recent surgery COMPARISON: Pelvis and left hip radiographs 11/18/2021 TECHNIQUE: Multiple axial CT images of the left hip were obtained following the intravenous administration of 95 mL Optiray 320. A dose lowering technique was u sed consistent with the principals of KEITH. FINDINGS: Calcified uterine fibroids. Moderate fecal retention. No acute intrapelvic abnormality identified. Satisfactory alignment of the left hip total joint arthroplasty. Streak artifact from the hardware limits the study. No definite acute fracture or dislocation is identified. The imaged left hemipelvis also appears intact. There is a peripherally enhancing fluid collection along the posterior margin of the proximal left femur at the level of the lesser trochanter measuring up to 15 x 1.5 x 6.5 cm in transverse, AP and craniocaudal dimensions. IMPRESSION: 1. Unremarkable appearance of the left hip total joint arthroplasty. No dislocation or acute fracture. 2. Indeterminate fluid collection posterior to the proximal left femur, possibly a seroma. ACT 112: Negative or not required by law. The above report was generated using voice recognition software. It may contain grammatical, syntax or spelling errors. Electronically signed by: Leonardo Sarmiento M.D. 12/04/2021 1:41 PM EKG - my reading - sinus tach, ST flattening anterior leads Code Status & VTE Plan Code Status DNR/DNI - as confirmed with daughter by phone PG Care Time/CCT Total # of Minutes Spent Total Time Spent with Patient: Total time spent is greater than 50% in coordination of care (as documented) at patient's floor/unit and/or counseling patient: Coding Level of Care Code 34679 Initial Inpt Care Lvl 3 Diagnoses Acute blood loss anemia D62 S/P hip hemiarthroplasty Z96.649 Seroma Dementia F03.90 Rheumatoid arthritis M06.9 HTN (hypertension) I10 COVID U07.1 Prerenal azotemia R79.89 Tachycardia R00.0 Acute encephalopathy G93.40
[2021-12-04] MEDS ORDERED: OPTIRAY 320 100ml IV ONE (13:24)
--- NOTE | 2021-12-04 13:42 | CT Scan Report ---
CT hip LT wo con HISTORY: 81 years-old Female anemia, recent surgery acute pain of the left hip with recent surgery COMPARISON: Pelvis and left hip radiographs 11/18/2021 TECHNIQUE: Multiple axial CT images of the left hip were obtained following the intravenous administr ation of 95 mL Optiray 320. A dose lowering technique was used consistent with the principals of MANDEEP Rodriguez FINDINGS: Calcified uterine fibroids. Moderate fecal retention. No acute intrapelvic abnormality identified. Sa tisfactory alignment of the left hip total joint arthroplasty. Streak artifact from the hardware limi ts the study. No definite acute fracture or dislocation is identified. The imaged left hemipelvis als o appears intact. There is a peripherally enhancing fluid collection along the posterior margin of th e proximal left femur at the level of the lesser trochanter measuring up to 15 x 1.5 x 6.5 cm in francois sverse, AP and craniocaudal dimensions. IMPRESSION: 1. Unremarkable appearance of the left hip total joint arthroplasty. No dislocation or acute fracture . 2. Indeterminate fluid collection posterior to the proximal left femur, possibly a seroma. ACT 112: Negative or not required by law. The above report was generated using voice recognition software. It may contain grammatical, syntax o r spelling errors. Electronically signed by: Leonardo Sarmiento M.D. 12/04/2021 1:41 PM
--- NOTE | 2021-12-04 13:47 | CT Scan Report ---
CT SCAN OF THE ABDOMEN AND PELVIS WITH IV CONTRAST CLINICAL HISTORY: General is abdominal pain. Anemia. COMPARISON STUDY: No priors. TECHNIQUE: Following the IV administration of 95 cc of Optiray 320, CT scan of the abdomen and pelvi s is performed from the lung bases to the proximal femora. Images are reviewed in the axial, sagittal , and coronal planes. IV contrast was administered without complication. A dose lowering technique wa s utilized adhering to the principles of ALARA. Examination is degraded by motion artifact, as well a s by streak artifact from the arms which could not elevated above the abdomen. FINDINGS: Lung bases: The heart is normal in size and without pericardial effusion. The lung bases are clear no ting dependent scarring/atelectasis. There is a small hiatal hernia. Circumferential wall thickening is suggested in the distal centimeters. Liver: The contrast-enhanced liver is normal in size, contour, and attenuation. There is no intrahepa tic biliary ductal dilatation. The hepatic veins and portal veins are patent. Gallbladder: Unremarkable. Spleen: Normal in size and attenuation. There is a 12 mm splenic artery aneurysm seen on image #88. Pancreas: Moderately atrophic and grossly unremarkable. Adrenal glands: Unremarkable. Kidneys: The contrast enhanced kidneys are atrophic and without hydronephrosis. The kidneys enhance s ymmetrically. There is a 4.3 cm right renal cyst. Additional subcentimeter cortical hypodensities als o likely represent cysts but are too small for definitive characterization. Abdominal vasculature: There is moderate atherosclerotic calcification mild ectasia of the abdominal aorta. Bowel: There is moderate colonic fecal retention. No bowel obstruction is seen. There is mild diverti culosis of the right colon without CT evidence of acute diverticulitis. A duodenal diverticulum is in cidentally noted. The appendix is well-visualized and normal. Peritoneum/retroperitoneum: No retroperitoneal hemorrhage is identified. There is no intraperitoneal free air or abdominal ascites. Lymphadenopathy: None. Pelvic viscera: Evaluation of the pelvis is degraded by streak artifact from a left hip arthroplasty. The bladder, uterus, and adnexa are normal as visualized. Skeletal structures: The skeletal structures are osteopenic. No lytic or blastic lesions are seen. Th ere is mild lumbosacral spondylosis. A left hip arthroplasty is in place. Soft tissue induration over lies the left hip and there is a fluid collection partially visualized around the proximal left femur . IMPRESSION: 1. No acute infectious or inflammatory findings are identified in the abdomen or pelvis. 2. Soft tissue induration overlies the left hip and a fluid collection is partially visualized around the left proximal femur femur. This may represent expected postoperative change and a seroma/hematom a. See report of CT scan of the left hip performed concurrently for detailed findings. 3. The distal esophagus appears circumferentially thick walled. Correlate clinically for evidence of esophagitis. 4. There is a 12 mm splenic artery aneurysm. 5. Additional findings as above. ACT 112: Negative or not required by law. Electronically signed by: William Keen M.D. 12/04/2021 1:45 PM
[2021-12-04 14:03] LABS: Ferritin 76.5 ng/ml (8-388)
[2021-12-04 14:07] LABS: Folate (Folic Acid) > 22.30 ng/ml (>5.38)
[2021-12-04 14:08] LABS: Vitamin B12 322 pg/ml (180-914)
[2021-12-04] MEDS ORDERED: PANTOPRAZOLE BOLUS/DRIP 1 EACH IV STA (14:29)
[2021-12-04] MEDS ORDERED: PANTOprazole 80 MG in DEXTROSE 5% 100 ML IV ONE (14:29)
[2021-12-04 14:42] LABS: Appearance Urine Clear (Clear); Bacteria Urine Automated Negative (Negative); Bilirubin Urine Negative (Negative); Blood Urine Negative (Negative); Color Urine Yellow; Glucose Urine UA Negative (Negative); Ketones Urine Negative (Negative); Leukocyte Esterase Urine 2+ (Negative); Nitrite Urine Negative (Negative); Protein Urine Negative (Negative); Specific Gravity Urine 1.026 (1.000-1.030); Urobilinogen Urine Negative (Negative); WBC Urine Automated >30 /hpf (0-5); pH Urine 5.5 (4.5-7.5)
--- NOTE | 2021-12-04 15:36 | Gastrointestinal Consultation ---
Date of Consultation December 04, 2021 Assessment & Plan (1) Acute blood loss anemia: (2) S/P hip hemiarthroplasty: (3) Prerenal azotemia: (4) Tachycardia: (5) Acute hypotension: Impression is acute blood loss anemia with associated hemodynamic instability with no physical evidence of GI blood loss, imaging revealing a left hip fluid collection which could be a hematoma. GI bleeding seems possible but unlikely in this case. I recommend resuscitation with packed red blood cells and IV fluids to Hgb >7 gm and stable vital signs, and administration of an IV PPI, , avoidance of NSAIDs and enoxaparin, and close telemetry monitoring and monitoring for GI bleeding. Following resuscitation and stabilization, endoscopy indicated to rule out or identify and treat an upper GI bleeding site, this is arranged for 12-05-2021. We will follow the patient and assist in her care as needed. History of Present Illness Reason for Consultation: Acute blood loss anemia with hemodynamic instability History of Present Illness Ms. Stratton is an 81 yo woman transported to the Emergency Department from a longterm facility due to an acute drop in measured Hemoglobin and Hematocrit accompanied by tachycardia and hypotension. Ms. Stratton has dementia, does not speak any Martiniquais, and she is not able to provide a history, the history is obtained from the EHR, the attending physician, and the healthcare team. Ms. Stratton had a transcervical fracture of the left femoral head, admitted to the hospital on 11-18-21 and had a left hip hemiarthroplasty on 11-19. On admission, Hgb was 11 gm, and post op Hgb was 8.8 gm. On 11-26-21, near time of discharge, the Hgb noted to be 8.3 gm. In the ER on 12-04-21, initial Hgb was 4.9, with associated tachycardia and hypotension. There is no history of GI bleeding noted, no hematemesis, melena, hematochesia. She was noted to be constipated, no nausea, vomiting, anorexia, abdominal pain. She was receiving daily low dose aspirin, prn celecoxib, and enoxaparin. Fecal occult blood testing in the emergency department today reported to be negative. CT of the left hip today revealed a 15 X 6.5 cm fluid collection posterior to the proximal left femur, possibly representing a seroma or hematoma. This was also identified on a noncontrast CT of the abdomen and pelvis, whisch also showed a splenic artery aneurysm, uncomplicated diverticulosis, and fecal retention. Allergies Allergy/AdvReac Type Severity Reaction Status Date / Time No Known Allergies Allergy Verified 12/04/21 14:38 Home Medications Medication Instructions Recorded Confirmed Type aspirin 81 mg tablet,delayed 81 mg PO DAILY 08/18/19 12/04/21 History release atorvastatin 10 mg tablet 10 mg PO DAILY 08/18/19 12/04/21 History losartan 50 mg-hydrochlorothiazide 1 tab PO DAILY PRN 08/18/19 12/04/21 History 12.5 mg tablet metoprolol succinate 50 mg 50 mg PO DAILY 08/18/19 12/04/21 History tablet,extended release 24 hr food supplemt, lactose-reduced 1 ea PO DAILY #5688 ml 11/21/20 12/04/21 Rx (Ensure High Protein) pimavanserin 10 mg tablet 10 mg PO DAILY #90 tab 02/15/21 12/04/21 Rx (Nuplazid) rivastigmine tartrate 1.5 mg 1.5 mg PO BID 90 Days #180 cap 02/15/21 12/04/21 Rx capsule venlafaxine 150 mg 150 mg PO DAILY #90 cap 02/15/21 12/04/21 Rx capsule,extended release 24 hr folic acid 1 mg tablet 1 mg PO DAILY 11/18/21 12/04/21 History memantine 28 mg capsule 28 mg PO HS 11/18/21 12/04/21 History sprinkle,extended release 24hr mirtazapine 15 mg tablet 15 mg PO HS 11/18/21 12/04/21 History quetiapine 200 mg tablet 200 mg PO HS 11/18/21 12/04/21 History quetiapine 50 mg tablet,extended 50 mg PO QAM 11/18/21 12/04/21 History release 24 hr acetaminophen 500 mg capsule 1,000 mg PO Q8H PRN 12/04/21 12/04/21 History amlodipine 5 mg tablet 5 mg PO DAILY PRN 12/04/21 12/04/21 History bisacodyl 10 mg NOT APPLICABLE DAILY PRN 12/04/21 12/04/21 History celecoxib 100 mg PO BID 12/04/21 12/04/21 History docusate sodium 100 mg PO BID PRN 12/04/21 12/04/21 History enoxaparin 20 mg PO DAILY 12/04/21 12/04/21 History hydrochlorothiazide 12.5 mg PO DAILY 12/04/21 12/04/21 History loratadine 10 mg PO DAILY PRN 12/04/21 12/04/21 History magnesium hydroxide 30 ml PO DAILY PRN 12/04/21 12/04/21 History polyethylene glycol 3350 1 packet PO DAILY PRN 12/04/21 12/04/21 History tramadol 50 mg PO Q4H PRN 12/04/21 12/04/21 History tramadol 50 mg tablet 100 mg PO Q4H PRN 12/04/21 12/04/21 History Patient History Medical History (Updated 12/04/21 @ 15:25 by Marco Antonio Rodrigez DO) Alzheimer disease Anorexia Dementia Generalized osteoarthritis of multiple sites Hallucinations HTN (hypertension) Osteoporosis Rheumatoid arthritis Seasonal allergies Vitamin D deficiency Surgical History (Updated 12/04/21 @ 14:43 by Meño Betancourt) S/P hip hemiarthroplasty LEFT - 2nd to hip fracture; 11/19/21 (Dr Ricco Ramirez) Family History Sister Dementia Social History Smoking Status: Unknown if ever smoked Hx Alcohol Use: No Preferred Language: Mandarin Danish Communication Ability: Effective 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 Stratton was somewhat restless, speaking Mandarin, not responding to any questions or simple commands Eyes: Not icteric Respiratory: normal respiratory effort, lungs clear to auscultation Cardiovascular: Resting regular tachycardia Gastrointestinal (Abdomen): normal bowel sounds, soft, nontender, no hepa tosplenomegaly Skin: Very pale Neurologic: Moving all extremities, not cooperative with physical examination Psychiatric: Orientation: + not oriented x 3 and + uncooperative Results & Data ([facility]) Vital Signs (Past 12 Hours) Vital Signs Temp Pulse Resp BP Pulse Ox 12/04/21 14:30 37.6 C H 111 H 18 136/87 97 12/04/21 14:15 37.5 C 111 H 13 119/71 95 12/04/21 14:00 37.5 C 111 H 18 121/73 95 12/04/21 13:45 37.5 C 122 H 19 155/74 H 12/04/21 13:39 37.6 C H 111 H 15 114/83 98 12/04/21 13:00 37.8 C H 113 H 18 101/67 99 12/04/21 12:30 105 H 17 85/51 L 12/04/21 12:00 96/75 L 12/04/21 11:30 89/60 L 12/04/21 11:28 83/56 L 12/04/21 11:27 36.8 C 103 H 20 117/64 99 Laboratory Results Laboratory Results WBC 13.03 K/uL (4.8-10.8) H 12/04/21 11:30 RBC 1.63 M/uL (4.2-5.4) L 12/04/21 11:30 Hgb 4.9 g/dL (12.0-16.0) L* 12/04/21 11:30 Hct 15.8 % (37-47) L* 12/04/21 11:30 MCV 96.9 fL (80-100) 12/04/21 11:30 MCH 30.1 pg (25-34) 12/04/21 11:30 MCHC 31.0 g/dL (32-36) L 12/04/21 11:30 RDW Std Deviation 55.4 fL (36.4-46.3) H 12/04/21 11:30 RDW Coeff of Tom 15.8 % (11.5-14.5) H 12/04/21 11:30 Plt Count 372 K/uL (130-400) 12/04/21 11:30 MPV 8.4 fL (7.4-10.4) 12/04/21 11:30 Immature Gran % (Auto) 0.8 % 12/04/21 11:30 Neut % (Auto) 73.0 % 12/04/21 11:30 Lymph % (Auto) 16.6 % 12/04/21 11:30 [place] % (Auto) 7.8 % 12/04/21 11:30 Eos % (Auto) 1.5 % 12/04/21 11:30 Baso % (Auto) 0.3 % 12/04/21 11:30 Neut # (Auto) 9.52 K/uL (1.4-6.5) H 12/04/21 11:30 Lymph # (Auto) 2.16 K/uL (1.2-3.4) 12/04/21 11:30 [place] # (Auto) 1.01 K/uL (0.11-0.59) H 12/04/21 11:30 Eos # (Auto) 0.19 K/uL (0-0.5) 12/04/21 11:30 Baso # (Auto) 0.04 K/uL (0-0.2) 12/04/21 11:30 Immature Gran # (Auto) 0.11 K/uL (0.00-0.02) H 12/04/21 11:30 PT 10.4 Seconds (9.0-12.0) 12/04/21 11:30 INR 1.0 (0.9-1.1) 12/04/21 11:30 APTT 21.8 Seconds (21.0-31.0) 12/04/21 11:30 PTT Ratio 0.8 12/04/21 11:30 Sodium 138 mmol/L (136-145) 12/04/21 11:30 Potassium 4.4 mmol/L (3.5-5.1) 12/04/21 11:30 Chloride 108 mmol/L (98-107) H 12/04/21 11:30 Carbon Dioxide 23 mmol/L (21-32) 12/04/21 11:30 Anion Gap 7 (3-11) 12/04/21 11:30 BUN 96 mg/dl (6-23) H 12/04/21 11:30 Creatinine 1.19 mg/dl (0.6-1.2) 12/04/21 11:30 Est Cr Clr Drug Dosing 30.9 ml/min 12/04/21 11:30 Est GFR ( Amer) 48.9 ml/min 12/04/21 11:30 Est GFR (Non-Af Amer) 42.2 ml/min 12/04/21 11:30 BUN/Creatinine Ratio 80.7 (10-20) H 12/04/21 11:30 Glucose 119 mg/dl (70-99(Fasting)) H 12/04/21 11:30 Calcium 8.1 mg/dl (8.5-10.1) L 12/04/21 11:30 Iron 87 mcg/dl (35-150) 12/04/21 11:30 TIBC 231 mcg/dl (250-450) L 12/04/21 11:30 Unsaturated IBC 144 mcg/dl (155-355) L 12/04/21 11:30 Transferrin % Sat 38 % (15-50) 12/04/21 11:30 Ferritin 76.5 ng/ml (8-388) 12/04/21 11:30 Total Bilirubin 0.2 mg/dl (0.2-1.0) 12/04/21 11:30 AST 30 U/L (13-39) 12/04/21 11:30 ALT 26 U/L (7-52) 12/04/21 11:30 Alkaline Phosphatase 91 U/L (34-104) 12/04/21 11:30 Troponin I High Sens 5.9 pg/ml (0-14) 12/04/21 11:30 Total Protein 5.4 gm/dl (6.0-8.3) L 12/04/21 11:30 Albumin 2.9 gm/dl (3.4-5.0) L 12/04/21 11:30 Globulin 2.5 gm/dl (2.5-4.0) 12/04/21 11:30 Albumin/Globulin Ratio 1.2 (0.9-2) 12/04/21 11:30 Lipase 32 U/L (11-82) 12/04/21 11:30 Vitamin B12 322 pg/ml (180-914) 12/04/21 11:30 Folate > 22.30 ng/ml (>5.38) 12/04/21 11:30 Urine Color Yellow 12/04/21 13:51 Urine Appearance Clear (Clear) 12/04/21 13:51 Urine pH 5.5 (4.5-7.5) 12/04/21 13:51 Ur Specific [place] 1.026 (1.000-1.030) 12/04/21 13:51 Urine Protein Negative (Negative) 12/04/21 13:51 Urine Glucose (UA) Negative (Negative) 12/04/21 13:51 Urine Ketones Negative (Negative) 12/04/21 13:51 Urine Blood Negative (Negative) 12/04/21 13:51 Urine Nitrite Negative (Negative) 12/04/21 13:51 Urine Bilirubin Negative (Negative) 12/04/21 13:51 Urine Urobilinogen Negative (Negative) 12/04/21 13:51 Ur Leukocyte Esterase 2+ (Negative) H 12/04/21 13:51 Urine WBC (Auto) >30 /hpf (0-5) H 12/04/21 13:51 Urine RBC (Auto) 0-4 /hpf (0-4) 12/04/21 13:51 U Hyaline Cast (Auto) 1-5 /lpf (0-5) 12/04/21 13:51 U Epithel Cells (Auto) 5-10 /lpf (0-5) H 12/04/21 13:51 Urine Bacteria (Auto) Negative (Negative) 12/04/21 13:51 SARS-CoV-2, RNA, NAAT NEGATIVE (NEGATIVE) 12/04/21 11:25 Blood Type AB Positive 12/04/21 11:21 Blood Type Recheck AB Positive 12/04/21 12:00 Antibody Screen NEGATIVE 12/04/21 11:21 Crossmatch See Detail 12/04/21 11:21 Impressions Chest X-Ray 12/04/21 11:10 XR chest 1V portable CLINICAL HISTORY: Chest Pain. COMPARISON STUDY: No previous studies for comparison. TECHNIQUE: 1 view of the chest FINDINGS: Single frontal view of the chest demonstrates the cardiomediastinal silhouette to be within normal limits. The lungs are clear of alveolar opacities. There is no evidence for pleural effusion. There is no evidence for vascular congestion. There is no acute osseous pathology. IMPRESSION: 1. No acute cardiopulmonary disease. ACT 112: Negative or not required by law. Electronically signed by: Kirill Maldonado M.D. 12/04/2021 11:45 AM Abdomen/Pelvis CT 12/04/21 11:30 CT SCAN OF THE ABDOMEN AND PELVIS WITH IV CONTRAST CLINICAL HISTORY: General is abdominal pain. Anemia. COMPARISON STUDY: No priors. TECHNIQUE: Following the IV administration of 95 cc of Optiray 320, CT scan of the abdomen and pelvis is performed from the lung bases to the proximal femora. Images are reviewed in the axial, sagittal, and coronal planes. IV contrast was administered without complication. A dose lowering technique was utilized adhering to the principles of ALARA. Examination is degraded by motion artifact, as well as by streak artifact from the arms which could not elevated above the abdomen. FINDINGS: Lung bases: The heart is normal in size and without pericardial effusion. The lung bases are clear noting dependent scarring/atelectasis. There is a small hiatal hernia. Circumferential wall thickening is suggested in the distal centimeters. Liver: The contrast-enhanced liver is normal in size, contour, and attenuation. There is no intrahepatic biliary ductal dilatation. The hepatic veins and portal veins are patent. Gallbladder: Unremarkable. Spleen: Normal in size and attenuation. There is a 12 mm splenic artery aneurysm seen on image #88. Pancreas: Moderately atrophic and grossly unremarkable. Adrenal glands: Unremarkable. Kidneys: The contrast enhanced kidneys are atrophic and without hydronephrosis. The kidneys enhance symmetrically. There is a 4.3 cm right renal cyst. Additional subcentimeter cortical hypodensities also likely represent cysts but are too small for definitive characterization. Abdominal vasculature: There is moderate atherosclerotic calcification mild ectasia of the abdominal aorta. Bowel: There is moderate colonic fecal retention. No bowel obstruction is seen. There is mild diverticulosis of the right colon without CT evidence of acute diverticulitis. A duodenal diverticulum is incidentally noted. The appendix is well-visualized and normal. Peritoneum/retroperitoneum: No retroperitoneal hemorrhage is identified. There is no intraperitoneal free air or abdominal ascites. Lymphadenopathy: None. Pelvic viscera: Evaluation of the pelvis is degraded by streak artifact from a left hip arthroplasty. The bladder, uterus, and adnexa are normal as visualized. Skeletal structures: The skeletal structures are osteopenic. No lytic or blastic lesions are seen. There is mild lumbosacral spondylosis. A left hip arthroplasty is in place. Soft tissue induration overlies the left hip and there is a fluid collection partially visualized around the proximal left femur. IMPRESSION: 1. No acute infectious or inflammatory findings are identified in the abdomen or pelvis. 2. Soft tissue induration overlies the left hip and a fluid collection is partially visualized around the left proximal femur femur. This may represent expected postoperative change and a seroma/hematoma. See report of CT scan of the left hip performed concurrently for detailed findings. 3. The distal esophagus appears circumferentially thick walled. Correlate clinically for evidence of esophagitis. 4. There is a 12 mm splenic artery aneurysm. 5. Additional findings as above. ACT 112: Negative or not required by law. Electronically signed by: William Keen M.D. 12/04/2021 1:[address] 12/04/21 12:25 CT hip LT wo con HISTORY: 81 years-old Female anemia, recent surgery acute pain of the left hip with recent surgery COMPARISON: Pelvis and left hip radiographs 11/18/2021 TECHNIQUE: Multiple axial CT images of the left hip were obtained following the intravenous administration of 95 mL Optiray 320. A dose lowering technique was used consistent with the principals of KEITH. FINDINGS: Calcified uterine fibroids. Moderate fecal retention. No acute intrapelvic abnormality identified. Satisfactory alignment of the left hip total joint arthroplasty. Streak artifact from the hardware limits the study. No definite acute fracture or dislocation is identified. The imaged left hemipelvis also appears intact. There is a peripherally enhancing fluid collection along the posterior margin of the proximal left femur at the level of the lesser trochanter measuring up to 15 x 1.5 x 6.5 cm in transverse, AP and craniocaudal dimensions. IMPRESSION: 1. Unremarkable appearance of the left hip total joint arthroplasty. No dislocation or acute fracture. 2. Indeterminate fluid collection posterior to the proximal left femur, possibly a seroma. ACT 112: Negative or not required by law. The above report was generated using voice recognition software. It may contain grammatical, syntax or spelling errors. Electronically signed by: Leonardo Sarmiento M.D. 12/04/2021 1:41 PM
[2021-12-04 15:45] LABS: RBC Urine Automated 0-4 /hpf (0-4)
--- NOTE | 2021-12-04 15:57 | Orthopedic Consultation ---
Date of Consultation December 04, 2021 Assessment & Plan (1) S/P hip hemiarthroplasty: Case and CT imaging reviewed by myself and personally by Dr Ramirez. Hematoma seen on CT left hip is small. EBL from surgery on 11/19 was 50cc, so it is unlikely that her fracture and surgery are a singular cause of her acute blood loss anemia. There is also no concern for infection at this time, minor swelling and bruising normal post operative changes. Once medically stable, recommend PT/OT. Continue with ice, pain control, and DVT prophylaxis per primary once medically stable. Supervising Physician Co-Signing Physician Notes I saw and examined the patient in the Emergency Room, and spoke with her [id number], Pinky, who said she was ambulating at [facility] holding onto her nurses arm without using a walker recently. On exam, her thigh is soft. She does have superficial skin abrasions where foam tape was applied for her post-operative dressing. No evidence of infection. I agree with the above note. Agree with GI consult and work-up of her anemia to search for other potential explanations for her low hemoglobin. For her skin abrasions, recommend topical antibiotic ointment and observation. Posterior hip precautions during PT/OT. I performed the substantive portion of the consult, including history, exam, review of imaging, and formulation of the plan as outlined above. History of Present Illness Reason for Consultation: post op left hip cemented hemiarthroplasty History of Present Illness Keisha is a 81 year old female with dementia, acute anemia, HTN and HLD and RA who is being admitted for anemia with Hgb 4.6. She is tachycardic as well with a WBC 13. She had a recent surgery on 11/19 - left hip cemented hemiarthroplasty by Dr Ramirez. She had blood loss anemia noted post operatively, Hgb 8.8 which complicated her stay as well as COVID infection. Pt was sent to rehab upon discharge. History is significantly limited due to patient dementia. An supervisor fur dressing was used during today's visit, the patient was confused and not oriented and did not appropriately answer questions. Allergies Allergy/AdvReac Type Severity Reaction Status Date / Time No Known Allergies Allergy Verified 12/04/21 14:38 Home Medications Medication Instructions Recorded Confirmed Type aspirin 81 mg tablet,delayed 81 mg PO DAILY 08/18/19 12/04/21 History release atorvastatin 10 mg tablet 10 mg PO DAILY 08/18/19 12/04/21 History losartan 50 mg-hydrochlorothiazide 1 tab PO DAILY PRN 08/18/19 12/04/21 History 12.5 mg tablet metoprolol succinate 50 mg 50 mg PO DAILY 08/18/19 12/04/21 History tablet,extended release 24 hr food supplemt, lactose-reduced 1 ea PO DAILY #5688 ml 11/21/20 12/04/21 Rx (Ensure High Protein) pimavanserin 10 mg tablet 10 mg PO DAILY #90 tab 02/15/21 12/04/21 Rx (Nuplazid) rivastigmine tartrate 1.5 mg 1.5 mg PO BID 90 Days #180 cap 02/15/21 12/04/21 Rx capsule venlafaxine 150 mg 150 mg PO DAILY #90 cap 02/15/21 12/04/21 Rx capsule,extended release 24 hr folic acid 1 mg tablet 1 mg PO DAILY 11/18/21 12/04/21 History memantine 28 mg capsule 28 mg PO HS 11/18/21 12/04/21 History sprinkle,extended release 24hr mirtazapine 15 mg tablet 15 mg PO HS 11/18/21 12/04/21 History quetiapine 200 mg tablet 200 mg PO HS 11/18/21 12/04/21 History quetiapine 50 mg tablet,extended 50 mg PO QAM 11/18/21 12/04/21 History release 24 hr acetaminophen 500 mg capsule 1,000 mg PO Q8H PRN 12/04/21 12/04/21 History amlodipine 5 mg tablet 5 mg PO DAILY PRN 12/04/21 12/04/21 History bisacodyl 10 mg NOT APPLICABLE DAILY PRN 12/04/21 12/04/21 History celecoxib 100 mg PO BID 12/04/21 12/04/21 History docusate sodium 100 mg PO BID PRN 12/04/21 12/04/21 History enoxaparin 20 mg PO DAILY 12/04/21 12/04/21 History hydrochlorothiazide 12.5 mg PO DAILY 12/04/21 12/04/21 History loratadine 10 mg PO DAILY PRN 12/04/21 12/04/21 History magnesium hydroxide 30 ml PO DAILY PRN 12/04/21 12/04/21 History polyethylene glycol 3350 1 packet PO DAILY PRN 12/04/21 12/04/21 History tramadol 50 mg PO Q4H PRN 12/04/21 12/04/21 History tramadol 50 mg tablet 100 mg PO Q4H PRN 12/04/21 12/04/21 History Patient History Medical History Alzheimer disease Anorexia Dementia Generalized osteoarthritis of multiple sites Hallucinations HTN (hypertension) Osteoporosis Rheumatoid arthritis Seasonal allergies Vitamin D deficiency Surgical History S/P hip hemiarthroplasty LEFT - 2nd to hip fracture; 11/19/21 (Dr Ricco Ramirez) Family History Sister Dementia Social History Smoking Status: Unknown if ever smoked Hx Alcohol Use: No Preferred Language: Mandarin Bengali Communication Ability: Effective Communication Tools: IPad Shipping Support Required: Yes Current Living Situation: Family Feels Safe at Home: Yes Assistive Devices: Walker Physical Exam Physical Exam: Pt is laying her hospital bed, confused, and not oriented to person, place or time. She initially is not cooperative with examination of her hip, but after trying to reason with her on the importance of me examining her hip she was more complaint. She does not respond to questions, but I was able to palpate along her incision and move her hip without it seeming to bother the patient. There were two small abrasions noted anteriorly and proximally to her incision, unsure etiology as patient history limited. However, the do not appear infected. There is no major surrounding erythema, warmth or drainage noted from incision or abrasions. Incision is well approximated with no dehiscence. There is no palpable fluctuance or mass felt. Some swelling and bruising noted which appears to be normal post operative changes. The patient has good color distally as well as 2+ DP pulse. Results & Data ([facility]) Vital Signs (Past 12 Hours) Vital Signs Temp Pulse Resp BP Pulse Ox 12/04/21 14:30 37.6 C H 111 H 18 136/87 97 12/04/21 14:15 37.5 C 111 H 13 119/71 95 12/04/21 14:00 37.5 C 111 H 18 121/73 95 12/04/21 13:45 37.5 C 122 H 19 155/74 H 12/04/21 13:39 37.6 C H 111 H 15 114/83 98 12/04/21 13:00 37.8 C H 113 H 18 101/67 99 12/04/21 12:30 105 H 17 85/51 L 12/04/21 12:00 96/75 L 12/04/21 11:30 89/60 L 12/04/21 11:28 83/56 L 12/04/21 11:27 36.8 C 103 H 20 117/64 99 Laboratory Results 12/04/21 12/04/21 12/04/21 Range/Units 13:51 12:00 11:30 WBC (4.8-10.8) K/uL RBC (4.2-5.4) M/uL Hgb (12.0-16.0) g/dL Hct (37-47) % MCV (80-100) fL MCH (25-34) pg MCHC (32-36) g/dL RDW Std Deviation (36.4-46.3) fL RDW Coeff of Tom (11.5-14.5) % Plt Count (130-400) K/uL MPV (7.4-10.4) fL Immature Gran % (Auto) % Neut % (Auto) % Lymph % (Auto) % [place] % (Auto) % Eos % (Auto) % Baso % (Auto) % Neut # (Auto) (1.4-6.5) K/uL Lymph # (Auto) (1.2-3.4) K/uL [place] # (Auto) (0.11-0.59) K/uL Eos # (Auto) (0-0.5) K/uL Baso # (Auto) (0-0.2) K/uL Immature Gran # (Auto) (0.00-0.02) K/uL PT (9.0-12.0) Seconds INR (0.9-1.1) APTT (21.0-31.0) Seconds PTT Ratio Sodium (136-145) mmol/L Potassium (3.5-5.1) mmol/L Chloride (98-107) mmol/L Carbon Dioxide (21-32) mmol/L Anion Gap (3-11) BUN (6-23) mg/dl Creatinine (0.6-1.2) mg/dl Est Cr Clr Drug Dosing ml/min Est GFR ( Amer) ml/min Est GFR (Non-Af Amer) ml/min BUN/Creatinine Ratio (10-20) Glucose (70-99(Fasting)) mg/dl Calcium (8.5-10.1) mg/dl Iron (35-150) mcg/dl TIBC (250-450) mcg/dl Unsaturated IBC (155-355) mcg/dl Transferrin % Sat (15-50) % Ferritin (8-388) ng/ml Total Bilirubin (0.2-1.0) mg/dl AST (13-39) U/L ALT (7-52) U/L Alkaline Phosphatase (34-104) U/L Troponin I High Sens (0-14) pg/ml Total Protein (6.0-8.3) gm/dl Albumin (3.4-5.0) gm/dl Globulin (2.5-4.0) gm/dl Albumin/Globulin Ratio (0.9-2) Lipase (11-82) U/L Vitamin B12 322 (180-914) pg/ml Folate > 22.30 (>5.38) ng/ml Urine Color Yellow Urine Appearance Clear (Clear) Urine pH 5.5 (4.5-7.5) Ur Specific [place] 1.026 (1.000-1.030) Urine Protein Negative (Negative) Urine Glucose (UA) Negative (Negative) Urine Ketones Negative (Negative) Urine Blood Negative (Negative) Urine Nitrite Negative (Negative) Urine Bilirubin Negative (Negative) Urine Urobilinogen Negative (Negative) Ur Leukocyte Esterase 2+ H (Negative) Urine WBC (Auto) >30 H (0-5) /hpf Urine RBC (Auto) 0-4 (0-4) /hpf U Hyaline Cast (Auto) 1-5 (0-5) /lpf U Epithel Cells (Auto) 5-10 H (0-5) /lpf Urine Bacteria (Auto) Negative (Negative) SARS-CoV-2, RNA, NAAT (NEGATIVE) Blood Type Blood Type Recheck AB Positive Antibody Screen Crossmatch 12/04/21 12/04/21 12/04/21 Range/Units 11:30 11:30 11:30 WBC (4.8-10.8) K/uL RBC (4.2-5.4) M/uL Hgb (12.0-16.0) g/dL Hct (37-47) % MCV (80-100) fL MCH (25-34) pg MCHC (32-36) g/dL RDW Std Deviation (36.4-46.3) fL RDW Coeff of Tom (11.5-14.5) % Plt Count (130-400) K/uL MPV (7.4-10.4) fL Immature Gran % (Auto) % Neut % (Auto) % Lymph % (Auto) % [place] % (Auto) % Eos % (Auto) % Baso % (Auto) % Neut # (Auto) (1.4-6.5) K/uL Lymph # (Auto) (1.2-3.4) K/uL [place] # (Auto) (0.11-0.59) K/uL Eos # (Auto) (0-0.5) K/uL Baso # (Auto) (0-0.2) K/uL Immature Gran # (Auto) (0.00-0.02) K/uL PT 10.4 (9.0-12.0) Seconds INR 1.0 (0.9-1.1) APTT 21.8 (21.0-31.0) Seconds PTT Ratio 0.8 Sodium 138 (136-145) mmol/L Potassium 4.4 (3.5-5.1) mmol/L Chloride 108 H (98-107) mmol/L Carbon Dioxide 23 (21-32) mmol/L Anion Gap 7 (3-11) BUN 96 H (6-23) mg/dl Creatinine 1.19 (0.6-1.2) mg/dl Est Cr Clr Drug Dosing 30.9 ml/min Est GFR ( Amer) 48.9 ml/min Est GFR (Non-Af Amer) 42.2 ml/min BUN/Creatinine Ratio 80.7 H (10-20) Glucose 119 H (70-99(Fasting)) mg/dl Calcium 8.1 L (8.5-10.1) mg/dl Iron 87 (35-150) mcg/dl TIBC 231 L (250-450) mcg/dl Unsaturated IBC 144 L (155-355) mcg/dl Transferrin % Sat 38 (15-50) % Ferritin 76.5 (8-388) ng/ml Total Bilirubin 0.2 (0.2-1.0) mg/dl AST 30 (13-39) U/L ALT 26 (7-52) U/L Alkaline Phosphatase 91 (34-104) U/L Troponin I High Sens 5.9 (0-14) pg/ml Total Protein 5.4 L (6.0-8.3) gm/dl Albumin 2.9 L (3.4-5.0) gm/dl Globulin 2.5 (2.5-4.0) gm/dl Albumin/Globulin Ratio 1.2 (0.9-2) Lipase 32 (11-82) U/L Vitamin B12 (180-914) pg/ml Folate (>5.38) ng/ml Urine Color Urine Appearance (Clear) Urine pH (4.5-7.5) Ur Specific [place] (1.000-1.030) Urine Protein (Negative) Urine Glucose (UA) (Negative) Urine Ketones (Negative) Urine Blood (Negative) Urine Nitrite (Negative) Urine Bilirubin (Negative) Urine Urobilinogen (Negative) Ur Leukocyte Esterase (Negative) Urine WBC (Auto) (0-5) /hpf Urine RBC (Auto) (0-4) /hpf U Hyaline Cast (Auto) (0-5) /lpf U Epithel Cells (Auto) (0-5) /lpf Urine Bacteria (Auto) (Negative) SARS-CoV-2, RNA, NAAT (NEGATIVE) Blood Type Blood Type Recheck Antibody Screen Crossmatch 12/04/21 12/04/21 12/04/21 Range/Units 11:30 11:25 11:21 WBC 13.03 H (4.8-10.8) K/uL RBC 1.63 L (4.2-5.4) M/uL Hgb 4.9 L* (12.0-16.0) g/dL Hct 15.8 L* (37-47) % MCV 96.9 (80-100) fL MCH 30.1 (25-34) pg MCHC 31.0 L (32-36) g/dL RDW Std Deviation 55.4 H (36.4-46.3) fL RDW Coeff of Tom 15.8 H (11.5-14.5) % Plt Count 372 (130-400) K/uL MPV 8.4 (7.4-10.4) fL Immature Gran % (Auto) 0.8 % Neut % (Auto) 73.0 % Lymph % (Auto) 16.6 % [place] % (Auto) 7.8 % Eos % (Auto) 1.5 % Baso % (Auto) 0.3 % Neut # (Auto) 9.52 H (1.4-6.5) K/uL Lymph # (Auto) 2.16 (1.2-3.4) K/uL [place] # (Auto) 1.01 H (0.11-0.59) K/uL Eos # (Auto) 0.19 (0-0.5) K/uL Baso # (Auto) 0.04 (0-0.2) K/uL Immature Gran # (Auto) 0.11 H (0.00-0.02) K/uL PT (9.0-12.0) Seconds INR (0.9-1.1) APTT (21.0-31.0) Seconds PTT Ratio Sodium (136-145) mmol/L Potassium (3.5-5.1) mmol/L Chloride (98-107) mmol/L Carbon Dioxide (21-32) mmol/L Anion Gap (3-11) BUN (6-23) mg/dl Creatinine (0.6-1.2) mg/dl Est Cr Clr Drug Dosing ml/min Est GFR ( Amer) ml/min Est GFR (Non-Af Amer) ml/min BUN/Creatinine Ratio (10-20) Glucose (70-99(Fasting)) mg/dl Calcium (8.5-10.1) mg/dl Iron (35-150) mcg/dl TIBC (250-450) mcg/dl Unsaturated IBC (155-355) mcg/dl Transferrin % Sat (15-50) % Ferritin (8-388) ng/ml Total Bilirubin (0.2-1.0) mg/dl AST (13-39) U/L ALT (7-52) U/L Alkaline Phosphatase (34-104) U/L Troponin I High Sens (0-14) pg/ml Total Protein (6.0-8.3) gm/dl Albumin (3.4-5.0) gm/dl Globulin (2.5-4.0) gm/dl Albumin/Globulin Ratio (0.9-2) Lipase (11-82) U/L Vitamin B12 (180-914) pg/ml Folate (>5.38) ng/ml Urine Color Urine Appearance (Clear) Urine pH (4.5-7.5) Ur Specific [place] (1.000-1.030) Urine Protein (Negative) Urine Glucose (UA) (Negative) Urine Ketones (Negative) Urine Blood (Negative) Urine Nitrite (Negative) Urine Bilirubin (Negative) Urine Urobilinogen (Negative) Ur Leukocyte Esterase (Negative) Urine WBC (Auto) (0-5) /hpf Urine RBC (Auto) (0-4) /hpf U Hyaline Cast (Auto) (0-5) /lpf U Epithel Cells (Auto) (0-5) /lpf Urine Bacteria (Auto) (Negative) SARS-CoV-2, RNA, NAAT NEGATIVE (NEGATIVE) Blood Type AB Positive Blood Type Recheck Antibody Screen NEGATIVE Crossmatch See Detail Diagnostic Findings Abdomen/Pelvis CT 12/04/21 11:30 CT SCAN OF THE ABDOMEN AND PELVIS WITH IV CONTRAST IMPRESSION: 1. No acute infectious or inflammatory findings are identified in the abdomen or pelvis. 2. Soft tissue induration overlies the left hip and a fluid collection is partially visualized around the left proximal femur femur. This may represent expected postoperative change and a seroma/hematoma. See report of CT scan of the left hip performed concurrently for detailed findings. 3. The distal esophagus appears circumferentially thick walled. Correlate clinically for evidence of esophagitis. 4. There is a 12 mm splenic artery aneurysm. 5. Additional findings as above. Electronically signed by: William Keen M.D. 12/04/2021 1:[address] 12/04/21 12:25 CT hip LT wo con HISTORY: 81 years-old Female anemia, recent surgery acute pain of the left hip with recent surgery COMPARISON: Pelvis and left hip radiographs 11/18/2021 IMPRESSION: 1. Unremarkable appearance of the left hip total joint arthroplasty. No dislocation or acute fracture. 2. Indeterminate fluid collection posterior to the proximal left femur, possibly a seroma. ACT 112: Negative or not required by law. The above report was generated using voice recognition software. It may contain grammatical, syntax or spelling errors. Electronically signed by: Leonardo Sarmiento M.D. 12/04/2021 1:41 PM
[2021-12-04] MEDS ORDERED: MoRPHine SULFATE 2 MG/ML CARP IV PRN (17:00)
[2021-12-04] MEDS ORDERED: ONDANSETRON INJ 2 MG/ML 2 ML VIAL IV PRN (17:00)
[2021-12-04] MEDS ORDERED: ACETAMINOPHEN 325 MG TAB PO PRN (17:00)
[2021-12-04] MEDS: PANTOprazole 40 MG in DEXTROSE 5% 100 ML IV SCH ×2 (17:34→23:21)
[2021-12-04] MEDS: QUEtiapine FUMARATE 200 MG TAB PO SCH (19:43)
[2021-12-04] MEDS: MIRTAZAPINE TAB 15 MG TAB PO SCH (19:43)
[2021-12-04] MEDS: RIVASTIGMINE TARTRATE 1.5 MG CAP PO SCH (19:44)
[2021-12-04] MEDS: SODIUM CHLORIDE 0.9% 1000ML 1,000 ML IV SCH (21:04)
[2021-12-04 23:03] LABS: Hematocrit (blood only) 26.1 % (37-47); Hemoglobin 8.8 g/dL (12.0-16.0)
[2021-12-05] MEDS: PANTOprazole 40 MG in DEXTROSE 5% 100 ML IV SCH ×4 (03:24→18:33)
--- NOTE | 2021-12-05 07:17 | Ultrasound Report ---
US venous doppler LE BI CLINICAL HISTORY: Bilateral leg pain and swelling COMPARISON: None available at the time of this dictation. TECHNIQUE: Bilateral lower extremity real-time compression venous ultrasound with Color Doppler imagi ng. Utilizing real-time ultrasonic imaging multiple real time high-resolution ultrasonic images with comp ression and noncompression maneuvers of the deep venous system in addition to color doppler imaging w ere performed from the common femoral vein through the proximal calf veins. FINDINGS: Currently there is normal compressibility of the deep venous system from the common femoral vein thro ugh the proximal calf veins. No current evidence of acute thrombosis is identified. Impression: No evidence of deep venous thrombus. ACT 112: Negative or not required by law. Electronically signed by: Kirill Maldonado M.D. 12/05/2021 7:16 AM
[2021-12-05 07:32] LABS: Hematocrit (blood only) 25.8 % (37-47); Hemoglobin 8.5 g/dL (12.0-16.0); Mean Corpuscular Hemoglobin 29.3 pg (25-34); Mean Corpuscular Hgb Conc 32.9 g/dL (32-36); Mean Platelet Volume 8.4 fL (7.4-10.4); Nucleated RBC # (auto) 0.06 K/uL (0-0); Nucleated RBC % (auto) 0.6 %; Platelet Count 273 K/uL (130-400); RDW Coefficient of Variation 17.9 % (11.5-14.5); RDW Standard Deviation 55.8 fL (36.4-46.3); White Blood Count 11.34 K/uL (4.8-10.8)
[2021-12-05 08:03] LABS: BUN Creatinine Ratio 63.8 (10-20); Calcium 8.6 mg/dl (8.5-10.1); Est GFR (Non-African American) 68.2 ml/min; Potassium 4.4 mmol/L (3.5-5.1)
--- NOTE | 2021-12-05 08:21 | Gastroenterology Progress Note ---
Date of Service December 05, 2021 Assessment & Plan (1) Anemia: Plan: Anemia: Impression is acute blood loss anemia with associated hemodynamic instability with no physical evidence of GI blood loss, imaging revealing a left hip fluid collection which could be a hematoma. GI bleeding seems possible but unlikely in this case. Continue supportive care measures including resuscitation with packed red blood cells and IV fluids to Hgb >7 gm and stable vital signs, and administration of an IV PPI, , avoidance of NSAIDs and enoxaparin, and close telemetry monitoring and monitoring for GI bleeding. She has received 2 units of PRBC and hgb 8.5/hct 25.8 this morning. Plan is EGD this morning to rule out or identify and treat an upper GI bleeding site. Case reviewed with Dr. Baird. Please refer to supervising physician addendum for further recommendations. I have spent 15 minutes of discrete time performing the activities of this visit which include but are not limited to review of the medical record, obtaining a history, physical exam, and entering information in the electronic record. Admission and Anticipated Discharge Date Admission Date: December 04, 2021 Supervising Physician Co-Signing Physician Notes I interviewed the patient's son, and examined the patient and reviewed the medical record, with the following observations: Subjective: No GI bleeding detected since admission to the hospital. Successful resuscitation with packed RBCs and IV fluids Physical Examination: Uncooperative with the physical examination Chart Review: H/H and vital signs recovered I agree with the assessment as outlined in this consultation, with the following observations: GI blood loss seems unlikely, should be ruled out, EGD planned I agree with the plan of care as outlined in this consultation, with the following changes and/or additions: Discussed the EGD exam with the patient's son, and verbal consent obtained As the supervising physician, I have spent 10 minutes of discrete time performing the activities of this consultation which include, but are not limited to, review of the medical record, obtaining a history, physical examination, and entering information into the electronic record. JASMEET Walsh, has reported spending 15 minutes of discrete time with the activities of the consultation. Subjective 81yo female with advanced dementia, HTN, and hyperlipidemia. She was recently hospitalized from 11/18 to 11/28 for left hip fracture s/p ORIF by Dr Ricco Ramirez ([facility]) on 11/19. Due to her dementia, as well as English being her prairie [place] language, no information could be obtained from the patient directly. Patient wakens with verbal stimuli. Indicates she is cold this morning. Helped adjust her blankets. No s/s abdominal pain or distress. No reports of GI bleeding from staff. Review of Systems Review of Systems: All systems reviewed & are unremarkable except as noted in Subjective Physical Exam Respiratory: normal respiratory effort, lungs clear to auscultation Gastrointestinal (Abdomen): normal bowel sounds, soft, nontender, no hepatosplenomegaly Psychiatric: Orientation: + not oriented x 3 and + uncooperative Results & Data ([facility]) Vital Signs (Past 12 Hours) Vital Signs Temp Pulse Pulse Resp BP BP Pulse Ox 12/05/21 07:32 36.7 C 93 H 17 107/69 99 12/05/21 03:37 36.5 C 88 16 104/67 97 12/04/21 23:13 36.7 C 93 H 18 100/67 98 12/04/21 20:57 36.3 C L 107 H 18 130/91 95 12/04/21 20:41 36.3 C L 110 H 16 98/62 L 97 Laboratory Results Laboratory Results - last 24 hr 12/04/21 12/04/21 12/04/21 11:21 11:25 11:30 WBC 13.03 H RBC 1.63 L Hgb 4.9 L* Hct 15.8 L* MCV 96.9 MCH 30.1 MCHC 31.0 L RDW Std Deviation 55.4 H RDW Coeff of Tom 15.8 H Plt Count 372 MPV 8.4 Immature Gran % (Auto) 0.8 Neut % (Auto) 73.0 Lymph % (Auto) 16.6 Rhea % (Auto) 7.8 Eos % (Auto) 1.5 Baso % (Auto) 0.3 Neut # (Auto) 9.52 H Lymph # (Auto) 2.16 Rhea # (Auto) 1.01 H Eos # (Auto) 0.19 Baso # (Auto) 0.04 Immature Gran # (Auto) 0.11 H Absolute Nucleated RBC Nucleated RBC % (auto) PT INR APTT PTT Ratio Sodium Potassium Chloride Carbon Dioxide Anion Gap BUN Creatinine Est Cr Clr Drug Dosing Est GFR ( Amer) Est GFR (Non-Af Amer) BUN/Creatinine Ratio Glucose Calcium Iron TIBC Unsaturated IBC Transferrin % Sat Ferritin Total Bilirubin AST ALT Alkaline Phosphatase Troponin I High Sens Total Protein Albumin Globulin Albumin/Globulin Ratio Lipase Vitamin B12 Folate Urine Color Urine Appearance Urine pH Ur Specific Bur[place] Urine Protein Urine Glucose (UA) Urine Ketones Urine Blood Urine Nitrite Urine Bilirubin Urine Urobilinogen Ur Leukocyte Esterase Urine WBC (Auto) Urine RBC (Auto) U Hyaline Cast (Auto) U Epithel Cells (Auto) Urine Bacteria (Auto) SARS-CoV-2, RNA, NAAT NEGATIVE Blood Type AB Positive Blood Type Recheck Antibody Screen NEGATIVE Crossmatch See Detail 12/04/21 12/04/21 12/04/21 11:30 11:30 11:30 WBC RBC Hgb Hct MCV MCH MCHC RDW Std Deviation RDW Coeff of Tom Plt Count MPV Immature Gran % (Auto) Neut % (Auto) Lymph % (Auto) Rhea % (Auto) Eos % (Auto) Baso % (Auto) Neut # (Auto) Lymph # (Auto) Rhea # (Auto) Eos # (Auto) Baso # (Auto) Immature Gran # (Auto) Absolute Nucleated RBC Nucleated RBC % (auto) PT 10.4 INR 1.0 APTT 21.8 PTT Ratio 0.8 Sodium 138 Potassium 4.4 Chloride 108 H Carbon Dioxide 23 Anion Gap 7 BUN 96 H Creatinine 1.19 Est Cr Clr Drug Dosing 30.9 Est GFR ( Amer) 48.9 Est GFR (Non-Af Amer) 42.2 BUN/Creatinine Ratio 80.7 H Glucose 119 H Calcium 8.1 L Iron 87 TIBC 231 L Unsaturated IBC 144 L Transferrin % Sat 38 Ferritin 76.5 Total Bilirubin 0.2 AST 30 ALT 26 Alkaline Phosphatase 91 Troponin I High Sens 5.9 Total Protein 5.4 L Albumin 2.9 L Globulin 2.5 Albumin/Globulin Ratio 1.2 Lipase 32 Vitamin B12 Folate Urine Color Urine Appearance Urine pH Ur Specific Burd[place] Urine Protein Urine Glucose (UA) Urine Ketones Urine Blood Urine Nitrite Urine Bilirubin Urine Urobilinogen Ur Leukocyte Esterase Urine WBC (Auto) Urine RBC (Auto) U Hyaline Cast (Auto) U Epithel Cells (Auto) Urine Bacteria (Auto) SARS-CoV-2, RNA, NAAT Blood Type Blood Type Recheck Antibody Screen Crossmatch 12/04/21 12/04/21 12/04/21 11:30 12:00 13:51 WBC RBC Hgb Hct MCV MCH MCHC RDW Std Deviation RDW Coeff of Tom Plt Count MPV Immature Gran % (Auto) Neut % (Auto) Lymph % (Auto) Rhea % (Auto) Eos % (Auto) Baso % (Auto) Neut # (Auto) Lymph # (Auto) Rhea # (Auto) Eos # (Auto) Baso # (Auto) Immature Gran # (Auto) Absolute Nucleated RBC Nucleated RBC % (auto) PT INR APTT PTT Ratio Sodium Potassium Chloride Carbon Dioxide Anion Gap BUN Creatinine Est Cr Clr Drug Dosing Est GFR ( Amer) Est GFR (Non-Af Amer) BUN/Creatinine Ratio Glucose Calcium Iron TIBC Unsaturated IBC Transferrin % Sat Ferritin Total Bilirubin AST ALT Alkaline Phosphatase Troponin I High Sens Total Protein Albumin Globulin Albumin/Globulin Ratio Lipase Vitamin B12 322 Folate > 22.30 Urine Color Yellow Urine Appearance Clear Urine pH 5.5 Ur Specific [place] 1.026 Urine Protein Negative Urine Glucose (UA) Negative Urine Ketones Negative Urine Blood Negative Urine Nitrite Negative Urine Bilirubin Negative Urine Urobilinogen Negative Ur Leukocyte Esterase 2+ H Urine WBC (Auto) >30 H Urine RBC (Auto) 0-4 U Hyaline Cast (Auto) 1-5 U Epithel Cells (Auto) 5-10 H Urine Bacteria (Auto) Negative SARS-CoV-2, RNA, NAAT Blood Type Blood Type Recheck AB Positive Antibody Screen Crossmatch 12/04/21 12/05/21 12/05/21 22:23 06:45 06:45 WBC 11.34 H RBC 2.90 L Hgb 8.8 L D 8.5 L Hct 26.1 L 25.8 L MCV 89.0 D MCH 29.3 MCHC 32.9 RDW Std Deviation 55.8 H RDW Coeff of Tom 17.9 H Plt Count 273 MPV 8.4 Immature Gran % (Auto) Neut % (Auto) Lymph % (Auto) Rhea % (Auto) Eos % (Auto) Baso % (Auto) Neut # (Auto) Lymph # (Auto) Rhea # (Auto) Eos # (Auto) Baso # (Auto) Immature Gran # (Auto) Absolute Nucleated RBC 0.06 H Nucleated RBC % (auto) 0.6 PT INR APTT PTT Ratio Sodium 141 Potassium 4.4 Chloride 113 H Carbon Dioxide 25 Anion Gap 3 BUN 51 H D Creatinine 0.80 D Est Cr Clr Drug Dosing 46.0 Est GFR ( Amer) 79.0 Est GFR (Non-Af Amer) 68.2 BUN/Creatinine Ratio 63.8 H Glucose 103 H Calcium 8.6 Iron TIBC Unsaturated IBC Transferrin % Sat Ferritin Total Bilirubin AST ALT Alkaline Phosphatase Troponin I High Sens Total Protein Albumin Globulin Albumin/Globulin Ratio Lipase Vitamin B12 Folate Urine Color Urine Appearance Urine pH Ur Specific Bur[place] Urine Protein Urine Glucose (UA) Urine Ketones Urine Blood Urine Nitrite Urine Bilirubin Urine Urobilinogen Ur Leukocyte Esterase Urine WBC (Auto) Urine RBC (Auto) U Hyaline Cast (Auto) U Epithel Cells (Auto) Urine Bacteria (Auto) SARS-CoV-2, RNA, NAAT Blood Type Blood Type Recheck Antibody Screen Crossmatch Diagnostic Findings Chest X-Ray 12/04/21 11:10 XR chest 1V portable CLINICAL HISTORY: Chest Pain. COMPARISON STUDY: No previous studies for comparison. TECHNIQUE: 1 view of the chest FINDINGS: Single frontal view of the chest demonstrates the cardiomediastinal silhouette to be within normal limits. The lungs are clear of alveolar opacities. There is no evidence for pleural effusion. There is no evidence for vascular congestion. There is no acute osseous pathology. IMPRESSION: 1. No acute cardiopulmonary disease. ACT 112: Negative or not required by law. Electronically signed by: Kirill Maldonado M.D. 12/04/2021 11:45 AM Abdomen/Pelvis CT 12/04/21 11:30 CT SCAN OF THE ABDOMEN AND PELVIS WITH IV CONTRAST CLINICAL HISTORY: General is abdominal pain. Anemia. COMPARISON STUDY: No priors. TECHNIQUE: Following the IV administration of 95 cc of Optiray 320, CT scan of the abdomen and pelvis is performed from the lung bases to the proximal femora. Images are reviewed in the axial, sagittal, and coronal planes. IV contrast was administered without complication. A dose lowering technique was utilized adhering to the principles of ALARA. Examination is degraded by motion artifact, as well as by streak artifact from the arms which could not elevated above the abdomen. FINDINGS: Lung bases: The heart is normal in size and without pericardial effusion. The lung bases are clear noting dependent scarring/atelectasis. There is a small hiatal hernia. Circumferential wall thickening is suggested in the distal centimeters. Liver: The contrast-enhanced liver is normal in size, contour, and attenuation. There is no intrahepatic biliary ductal dilatation. The hepatic veins and portal veins are patent. Gallbladder: Unremarkable. Spleen: Normal in size and attenuation. There is a 12 mm splenic artery aneurysm seen on image #88. Pancreas: Moderately atrophic and grossly unremarkable. Adrenal glands: Unremarkable. Kidneys: The contrast enhanced kidneys are atrophic and without hydronephrosis. The kidneys enhance symmetrically. There is a 4.3 cm right renal cyst. Additional subcentimeter cortical hypodensities also likely represent cysts but are too small for definitive characterization. Abdominal vasculature: There is moderate atherosclerotic calcification mild ectasia of the abdominal aorta. Bowel: There is moderate colonic fecal retention. No bowel obstruction is seen. There is mild diverticulosis of the right colon without CT evidence of acute diverticulitis. A duodenal diverticulum is incidentally noted. The appendix is well-visualized and normal. Peritoneum/retroperitoneum: No retroperitoneal hemorrhage is identified. There is no intraperitoneal free air or abdominal ascites. Lymphadenopathy: None. Pelvic viscera: Evaluation of the pelvis is degraded by streak artifact from a left hip arthroplasty. The bladder, uterus, and adnexa are normal as visualized. Skeletal structures: The skeletal structures are osteopenic. No lytic or blastic lesions are seen. There is mild lumbosacral spondylosis. A left hip arthroplasty is in place. Soft tissue induration overlies the left hip and there is a fluid collection partially visualized around the proximal left femur. IMPRESSION: 1. No acute infectious or inflammatory findings are identified in the abdomen or pelvis. 2. Soft tissue induration overlies the left hip and a fluid collection is partially visualized around the left proximal femur femur. This may represent expected postoperative change and a seroma/hematoma. See report of CT scan of the left hip performed concurrently for detailed findings. 3. The distal esophagus appears circumferentially thick walled. Correlate clinically for evidence of esophagitis. 4. There is a 12 mm splenic artery aneurysm. 5. Additional findings as above. ACT 112: Negative or not required by law. Electronically signed by: William Keen M.D. 12/04/2021 1:[address] 12/04/21 12:25 CT hip LT wo con HISTORY: 81 years-old Female anemia, recent surgery acute pain of the left hip with recent surgery COMPARISON: Pelvis and left hip radiographs 11/18/2021 TECHNIQUE: Multiple axial CT images of the left hip were obtained following the intravenous administration of 95 mL Optiray 320. A dose lowering technique was used consistent with the principals of ALARA. FINDINGS: Calcified uterine fibroids. Moderate fecal retention. No acute intrapelvic abnormality identified. Satisfactory alignment of the left hip total joint arthroplasty. Streak artifact from the hardware limits the study. No definite acute fracture or dislocation is identified. The imaged left hemipelvis also appears intact. There is a peripherally enhancing fluid collection along the posterior margin of the proximal left femur at the level of the lesser trochanter measuring up to 15 x 1.5 x 6.5 cm in transverse, AP and craniocaudal dimensions. IMPRESSION: 1. Unremarkable appearance of the left hip total joint arthroplasty. No disl ocation or acute fracture. 2. Indeterminate fluid collection posterior to the proximal left femur, possibly a seroma. ACT 112: Negative or not required by law. The above report was generated using voice recognition software. It may contain grammatical, syntax or spelling errors. Electronically signed by: Leonardo Sarmiento M.D. 12/04/2021 1:41 PM Venous Doppler Study 12/04/21 14:35 US venous doppler LE CLINICAL HISTORY: Bilateral leg pain and swelling COMPARISON: None available at the time of this dictation. TECHNIQUE: Bilateral lower extremity real-time compression venous ultrasound with Color Doppler imaging. Utilizing real-time ultrasonic imaging multiple real time high-resolution ultrasonic images with compression and noncompression maneuvers of the deep venous system in addition to color doppler imaging were performed from the common femoral vein through the proximal calf veins. FINDINGS: Currently there is normal compressibility of the deep venous system from the common femoral vein through the proximal calf veins. No current evidence of acute thrombosis is identified. Impression: No evidence of deep venous thrombus. ACT 112: Negative or not required by law. Electronically signed by: Kirill Maldonado M.D. 12/05/2021 7:16 AM (1) Anemia Anemia type: unspecified type Qualified Code(s): D64.9 - Anemia, unspecified
[2021-12-05] MEDS: SODIUM CHLORIDE 0.9% 1000ML 1,000 ML IV SCH (10:25)
--- NOTE | 2021-12-05 14:49 | Anesthesiology Consultation ---
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 History Surgery Operation Date: 12/05/21 16:30 Proposed Procedures p Esophagogastroduodenoscopy Dr Oli Baird MD Height/Weight Height: 5 ft 4 in Weight: 59.5 kg Allergies Allergy/AdvReac Type Severity Reaction Status Date / Time No Known Allergies Allergy Verified 12/04/21 14:38 Medications Home Medications Medication Instructions Recorded Confirmed Last Taken aspirin 81 mg tablet,delayed 81 mg PO DAILY 08/18/19 12/04/21 Unknown release atorvastatin 10 mg tablet 10 mg PO DAILY 08/18/19 12/04/21 Unknown losartan 50 mg-hydrochlorothiazide 1 tab PO DAILY PRN 08/18/19 12/04/21 Unknown 12.5 mg tablet metoprolol succinate 50 mg 50 mg PO DAILY 08/18/19 12/04/21 Unknown tablet,extended release 24 hr food supplemt, lactose-reduced 1 ea PO DAILY #5688 ml 11/21/20 12/04/21 Unknown (Ensure High Protein) pimavanserin 10 mg tablet 10 mg PO DAILY #90 tab 02/15/21 12/04/21 Unknown (Nuplazid) rivastigmine tartrate 1.5 mg 1.5 mg PO BID 90 Days #180 cap 02/15/21 12/04/21 Unknown capsule venlafaxine 150 mg 150 mg PO DAILY #90 cap 02/15/21 12/04/21 Unknown capsule,extended release 24 hr folic acid 1 mg tablet 1 mg PO DAILY 11/18/21 12/04/21 Unknown memantine 28 mg capsule 28 mg PO HS 11/18/21 12/04/21 Unknown sprinkle,extended release 24hr mirtazapine 15 mg tablet 15 mg PO HS 11/18/21 12/04/21 Unknown quetiapine 200 mg tablet 200 mg PO HS 11/18/21 12/04/21 Unknown quetiapine 50 mg tablet,extended 50 mg PO QAM 11/18/21 12/04/21 Unknown release 24 hr acetaminophen 500 mg capsule 1,000 mg PO Q8H PRN 12/04/21 12/04/21 Unknown amlodipine 5 mg tablet 5 mg PO DAILY PRN 12/04/21 12/04/21 Unknown bisacodyl 10 mg NOT APPLICABLE DAILY PRN 12/04/21 12/04/21 Unknown celecoxib 100 mg PO BID 12/04/21 12/04/21 Unknown docusate sodium 100 mg PO BID PRN 12/04/21 12/04/21 Unknown enoxaparin 20 mg PO DAILY 12/04/21 12/04/21 Unknown hydrochlorothiazide 12.5 mg PO DAILY 12/04/21 12/04/21 Unknown loratadine 10 mg PO DAILY PRN 12/04/21 12/04/21 Unknown magnesium hydroxide 30 ml PO DAILY PRN 12/04/21 12/04/21 Unknown polyethylene glycol 3350 1 packet PO DAILY PRN 12/04/21 12/04/21 Unknown tramadol 50 mg PO Q4H PRN 12/04/21 12/04/21 Unknown tramadol 50 mg tablet 100 mg PO Q4H PRN 12/04/21 12/04/21 Unknown Active Medications Generic Name Dose Route Start Last Admin Trade Name Freq PRN Reason Stop Dose Admin Pantoprazole Sodium 40 mg/ 100 mls @ 20 mls/hr 12/04/21 14:45 12/05/21 13:26 Dextrose IV 01/03/22 14:44 8 mg/hr Q5H TANNER 20 mls/hr Administration 8 MG/HR Sodium Chloride 1,000 mls @ 75 mls/hr 12/04/21 21:00 12/05/21 10:25 Nss 1000ml IV 01/03/22 20:59 75 mls/hr .[id number] TANNER Administration Mirtazapine 15 mg 12/04/21 21:00 12/04/21 19:43 Mirtazapine Tab 15 Mg Tab PO 01/03/22 20:59 15 mg HS TANNER Administration Quetiapine Fumarate 200 mg 12/04/21 21:00 12/04/21 19:43 Quetiapine Fumarate 200 Mg Tab PO 01/03/22 20:59 200 mg HS TANNER Administration Rivastigmine Tartrate 1.5 mg 12/04/21 17:45 12/04/21 19:44 Rivastigmine Tartrate 1.5 Mg Cap PO 01/03/22 17:44 1.5 mg BIDM TANNER Administration NPO Date Last Intake of Fluids: 12/05/21 Time Last Intake of Fluids: 00:00 Date Last Intake of Solids: 12/05/21 Time Last Intake of Solids: 00:00 Past Medical History Medical History Alzheimer disease Dementia Generalized osteoarthritis of multiple sites Hallucinations HTN (hypertension) Osteoporosis Rheumatoid arthritis Seasonal allergies Vitamin D deficiency Exercise / Class Metabolic Activity IV < 2 Limit ADL/Bedbound Past Family History Family History Sister Dementia Past Surgical History Surgical History S/P hip hemiarthroplasty LEFT - 2nd to hip fracture; 11/19/21 (Dr Ricco Ramierz) Past Anesthesia History No Hx of Anesthesia Complications and No Family Hx of Anesthesia Complications Per her sonAlek History of PONV No Hx of PONV and No Hx of Motion Sickness Social History Smoking Status: Never smoker Hx Alcohol Use: No Hx Substance Use: No Physical Exam Vital Signs Last Vital Signs Temp 36.5 C 12/05/21 11:58 Pulse 107 H 12/05/21 11:58 Resp 20 12/05/21 11:58 BP 130/91 12/05/21 11:58 Pulse Ox 95 12/05/21 11:58 Constitutional + altered mental status ENMT Pt does not follow commands. I was unable to exam her mouth/airway. Neck normal visual inspection and trachea midline Respiratory normal respiratory effort; no respiratory distress Auscultation: lungs clear to auscultation bilaterally; no crackles, no rhonchi and no wheezes Cardiovascular Rate/Rhythm: regular rate and regular rhythm Heart Sounds: no gallop, no murmur and no cardiac rub Neurologic awake Psychiatric Pt has Alzheimer's dz. Testing Laboratory Results 12/05/21 06:45 12/05/21 06:45 PT 10.4 Seconds (9.0-12.0) 12/04/21 11:30 INR 1.0 (0.9-1.1) 12/04/21 11:30 APTT 21.8 Seconds (21.0-31.0) 12/04/21 11:30 Urine Color Yellow 12/04/21 13:51 Urine Appearance Clear (Clear) 12/04/21 13:51 Urine pH 5.5 (4.5-7.5) 12/04/21 13:51 Ur Specific Trilla 1.026 (1.000-1.030) 12/04/21 13:51 Urine Protein Negative (Negative) 12/04/21 13:51 Urine Glucose (UA) Negative (Negative) 12/04/21 13:51 Urine Ketones Negative (Negative) 12/04/21 13:51 Urine Nitrite Negative (Negative) 12/04/21 13:51 Ur Leukocyte Esterase 2+ (Negative) H 12/04/21 13:51 Urine WBC (Auto) >30 /hpf (0-5) H 12/04/21 13:51 Urine RBC (Auto) 0-4 /hpf (0-4) 12/04/21 13:51 U Hyaline Cast (Auto) 1-5 /lpf (0-5) 12/04/21 13:51 U Epithel Cells (Auto) 5-10 /lpf (0-5) H 12/04/21 13:51 Urine Bacteria (Auto) Negative (Negative) 12/04/21 13:51 Blood Type AB Positive 12/04/21 11:21 Antibody Screen NEGATIVE 12/04/21 11:21 12/04/21 13:51 Urine Culture - Preliminary Urine,Indwelling Cath Probable Enterococcus Electrocardiogram Date: 12/04/21 Sinus tachycardia Low voltage QRS Cannot rule out Anterior infarct (cited on or before 18-NOV-2021) Abnormal ECG When compared with ECG of 18-NOV-2021 16:34, Questionable change in initial forces of Septal leads Nonspecific T wave abnormality now evident in Inferior leads Chest X-Ray Date: 12/04/21 XR chest 1V portable CLINICAL HISTORY: Chest Pain. COMPARISON STUDY: No previous studies for comparison. TECHNIQUE: 1 view of the chest FINDINGS: Single frontal view of the chest demonstrates the cardiomediastinal silhouette to be within normal limits. The lungs are clear of alveolar opacities. There is no evidence for pleural effusion. There is no evidence for vascular congestion. There is no acute osseous pathology. IMPRESSION: 1. No acute cardiopulmonary disease.
[2021-12-05] MEDS ORDERED: LIDOCAINE 2% 2 ML VIAL/AMP(20MG/ML) INFIL ONE (15:32)
[2021-12-05] MEDS ORDERED: PROPOFOL IV EMULSION 10 MG/ML 20 ML VIAL IV ONE (15:32)
--- NOTE | 2021-12-05 16:20 | GI REPORT ---
Patient Name: Keisha Stratton Procedure Date: 12/05/2021 3:35 PM Date of : 1940 Admit Type: Inpatient Age: 81 Gender: Female Attending MD: Yimi Baird MD Procedure: Upper GI endoscopy Providers: Yimi Baird MD Referring MD: Meño Betancourt Indications: Acute post hemorrhagic anemia, Iron deficiency anemia secondary to chronic blood loss Medicines: Monitored Anesthesia Care Complications: No immediate complications. Estimated Blood Loss: Estimated blood loss: none. Procedure: Pre-Anesthesia Assessment: - Prior to the procedure, a History and Physical was performed, and patient medications and allergies were reviewed. The patient is unable to give consent secondary to the patient being legally incompetent to consent. The risks and benefits of the procedure and the sedation options and risks were discussed with the patient's son. All questions were answered and informed consent was obtained. Patient identification and proposed procedure were verified by the physician and the nurse in the pre-procedure area. Mental Status Examination: alert but confused. Airway Examination: normal oropharyngeal airway and neck mobility. Respiratory Examination: clear to auscultation. CV Examination: normal. Prophylactic Antibiotics: The patient does not require prophylactic antibiotics. Prior Anticoagulants: The patient has taken Lovenox (enoxaparin), last dose was 2 days prior to procedure. ASA Grade Assessment: III - A patient with severe systemic disease. After reviewing the risks and benefits, the patient was deemed in satisfactory condition to undergo the procedure. The anesthesia plan was to use monitored anesthesia care (MAC). Immediately prior to administration of medications, the patient was re-assessed for adequacy to receive sedatives. The heart rate, respiratory rate, oxygen saturations, blood pressure, adequacy of pulmonary ventilation, and response to care were monitored throughout the procedure. The physical status of the patient was re-assessed after the procedure. After obtaining informed consent, the endoscope was passed under direct vision. Throughout the procedure, the patient's blood pressure, pulse, and oxygen saturations were monitored continuously. The Endoscope was introduced through the mouth, and advanced to the second part of duodenum. The upper GI endoscopy was accomplished without difficulty. The patient tolerated the procedure well. Findings: LA Grade B (one or more mucosal breaks greater than 5 mm, not extending between the tops of two mucosal folds) esophagitis with no bleeding was found 35 to 36 cm from the incisors. The Z-line was regular and was found 36 cm from the incisors. A 2 cm hiatal hernia was present. There is no endoscopic evidence of bleeding in the entire esophagus. Four non-bleeding cratered gastric ulcers with no stigmata of bleeding were found in the prepyloric region of the stomach. The largest lesion was 10 mm in largest dimension. There is no endoscopic evidence of bleeding in the entire examined stomach. The examined duodenum was normal. There is no endoscopic evidence of bleeding or mucosal abnormalities in the entire examined duodenum. Impression: - LA Grade B reflux esophagitis. - Z-line regular, 36 cm from the incisors. - 2 cm hiatal hernia. - Non-bleeding gastric ulcers with no stigmata of bleeding. - Normal examined duodenum. - No specimens collected. Recommendation: - Return patient to [facility] for [facility] care. - Advance diet as tolerated. - Continue present medications. - Observe patient's clinical course. MD Yimi Bradford MD 12/05/2021 4:20:23 PM This report has been signed electronically. Note Initiated On: 12/05/2021 3:35 PM Number of Addenda: 0 I attest to the content of the Intraoperative Record and orders documented therein, exceptions below {[id number]}
--- NOTE | 2021-12-05 16:27 | Post Operative Brief Note ---
Immediate Post Op Note v1 Date of Surgery December 05, 2021 Pre & Post Diagnosis Operation Date: 12/05/21 16:30 Pre-Op Diagnosis: ACUTE BLOOD LOSS ANEMIA Post-Op Diagnosis: erosions, 4 gastric ulcers, erosive esophagitis, hiatal hernia I identified the patient and participated in the time-out.: Yes Procedure Operation Date: 12/05/21 16:30 Actual Procedures p Esophagogastroduodenoscopy - Yimi Baird MD Surgeon Yimi Baird MD [facility] Helper none- Estimated Blood Loss 0 Findings See Below 1. LA Class B Erosive Esophagitis without bleeding or stigmata of bleeding 2. Sliding type hiatal hernia 3. 4 Prepyloric Gastric Antral Ulcers without bleeding or stigmata of bleeding 5. Normal Duodenum with No Blood present. Findings are consistent with previous bleeding from gastric ulcers in the upper GI tract. Rebleeding risk is very low. Recommend continue management with a proton pump inhibitor and avoidance of NSAIDs and anticoagulation Complications none noted
--- NOTE | 2021-12-05 16:29 | Anesthesiology Progress Note ---
Date of Service December 05, 2021 Anesthesia Post Procedure Vital Signs Vital Signs: Temp Pulse Pulse Resp BP BP Pulse Ox 12/05/21 16:23 98 H 16 138/75 97 12/05/21 16:11 98 H 16 131/63 96 12/05/21 15:09 36.8 C 86 18 125/74 97 12/05/21 11:58 36.5 C 107 H 20 130/91 95 12/05/21 08:00 87 12/05/21 07:32 36.7 C 93 H 17 107/69 99 12/05/21 03:37 36.5 C 88 16 104/67 97 12/04/21 23:13 36.7 C 93 H 18 100/67 98 12/04/21 20:57 36.3 C L 107 H 18 130/91 95 12/04/21 20:41 36.3 C L 110 H 16 98/62 L 97 12/04/21 19:41 36.7 C 113 H 18 116/89 100 12/04/21 18:41 36.6 C 103 H 18 125/74 12/04/21 18:11 36.3 C L 109 H 16 124/71 12/04/21 17:56 36.7 C 103 H 16 106/70 12/04/21 17:51 36.7 C 103 H 16 107/68 12/04/21 17:47 118 H 20 119/73 12/04/21 17:30 121 H 12/04/21 17:03 37.0 C 118 H 20 108/67 100 12/04/21 16:40 37.0 C 118 H 20 108/67 100 Transfer of Care Handoff Completed per policy Notes Mental Status: alert / awake / arousable and participated in evaluation Patient Amnestic to Procedure: Yes Nausea / Vomiting: adequately controlled Pain: adequately controlled Airway Patency, RR, SpO2: stable & adequate BP & HR: stable & adequate Hydration State: stable & adequate Anesthetic Complications: no major complications apparent and Pt Satisfied with anesthetic care
[2021-12-05] MEDS: AMPICILLIN 1,000 MG in SODIUM CHLOR 0.9% AD-VAN 50 ML IV SCH ×2 (16:59→20:59)
[2021-12-05] MEDS: RIVASTIGMINE TARTRATE 1.5 MG CAP PO SCH ×2 (17:38→18:35)
[2021-12-05] MEDS: QUEtiapine FUMARATE 50 MG TABCR PO SCH (17:40)
[2021-12-05] MEDS: ATORVASTATIN 10 MG TAB PO SCH (17:40)
[2021-12-05] MEDS: CETIRIZINE HCL 10 MG TABLET PO SCH (17:41)
[2021-12-05] MEDS: VENLAFAXINE HCL XR 150 MG CAPXR PO SCH (17:41)
[2021-12-05] MEDS: FOLIC ACID 1 MG TAB PO SCH (17:41)
[2021-12-05] MEDS: MIRTAZAPINE TAB 15 MG TAB PO SCH (19:40)
[2021-12-05] MEDS: QUEtiapine FUMARATE 200 MG TAB PO SCH (19:40)
[2021-12-05] MEDS: PANTOprazole 40 MG in SYRINGE 0 ML IV SCH (20:56)
--- NOTE | 2021-12-05 21:12 | Electrocardiogram Report ---
Test Reason : Blood Pressure : / mmHG Vent. Rate : 104 BPM Atrial Rate : 104 BPM P-R Int : 174 ms QRS Dur : 068 ms QT Int : 302 ms P-R-T Axes : 049 020 093 degrees QTc Int : 397 ms Sinus tachycardia Low voltage QRS Cannot rule out Anterior infarct (cited on or before 18-NOV-2021) Nonspecific T wave abnormality Abnormal ECG When compared with ECG of 18-NOV-2021 16:34, Questionable change in initial forces of Septal leads Nonspecific T wave abnormality now evident in Inferior leads and anterior leads Confirmed by Tomi Tam ([id number]) on 12/05/2021 9:12:17 PM Referred By: Confirmed By:Tomi Tam
--- NOTE | 2021-12-05 21:50 | Hospitalist Progress Note ---
Date of Service December 05, 2021 Assessment & Plan (1) Gastric ulcer: Plan: x 4 on EGD today. 2nd to recent asa, celebrex, and lovenox use. all have been d/c for now. PPI IV BID. appreciate GI consult & the EGD today. ulcers likely contributed to #3 below. (2) Esophagitis: Plan: as seen on EGD. PPI IV. resume clear liquids post-EGD. (3) Acute blood loss anemia: Plan: 2nd to upper GI bleeding. EGD findings noted. switch PPI drip to bolus BID. allow clears. s/p 2 units PRBCs with improvement in hemoglobin to >8. serial CBCs. consider IV venofer. replace low-normal B12. (4) Prerenal azotemia: Plan: Severe, with BUN nearly 100 and Cr just over 1. Improved today. Likely 2nd upper GI bleeding. See above. (5) Tachycardia: Plan: Likely due to severe acute blood loss anemia/upper GI bleeding. Improved. Cont Telemetry. (6) S/P hip hemiarthroplasty: Plan: left hip fracture s/p ORIF 11/19 - Dr Ricco Ramirez. overall her operative site is stable. mild swelling/seroma on CT at time of admission - felt not to be the cause of her acute blood loss anemia. (7) Seroma: Plan: left hip region. see above. no Rx needed. (8) Dementia: Plan: advanced, with superimposed acute encephalopathy. see below. (9) Rheumatoid arthritis: Plan: not on medications for such at this time. (10) HTN (hypertension): Plan: hold all anti-hypertensives (11) COVID: Plan: recently tested + for such during her hip fracture admission. was asymptomatic. 10+ days have elapsed since that test. no need for airborne isolation at this time. (12) Acute encephalopathy: Plan: METABOLIC - likely from UTI Rx the UTI supportive care (13) UTI (urinary tract infection): Plan: 2nd enterococcus may be the cause of his leukocytosis, etc start IV ampicillin Plan: son updated by phone extensively this evening Admission and Anticipated Discharge Date Admission Date: December 04, 2021 Subjective no events overnight due to dementia and language barrier no history or ROS can be elicited s/p EGD - findings noted tele overnight - sinus tach, then NSR Review of Systems Review of Systems: Unobtainable due to cognitive status Physical Exam Physical Exam: gen - lying comfortably in bed, NAD, speaking in [place] at a low-pitch, pointing at things skin - generalized pallor; left hip - incision clean, no drainage; abrasion anterior thigh on left neck - no JVD mouth - MMM heart - RRR, s1 s2 lungs - CTA b/l abd - soft NT ND BS+ ext - no edema, pulses 2+ b/l Results & Data Results & Data ([facility]) Vital Signs (Past 12 Hours) Vital Signs Temp Pulse Pulse Pulse Resp BP BP 12/05/21 19:36 130 H 18 157/88 H 12/05/21 17:30 96 H 16 147/88 H 12/05/21 17:15 95 H 18 164/79 H 12/05/21 16:54 85 12/05/21 16:50 36.6 C 94 H 20 150/83 H 12/05/21 16:40 95 H 16 146/84 H 12/05/21 16:23 98 H 16 138/75 12/05/21 16:11 98 H 16 131/63 12/05/21 15:09 36.8 C 86 18 125/74 12/05/21 11:58 36.5 C 107 H 20 130/91 Pulse Ox 12/05/21 19:36 97 12/05/21 17:30 97 12/05/21 17:15 100 12/05/21 16:54 12/05/21 16:50 96 12/05/21 16:40 97 12/05/21 16:23 97 12/05/21 16:11 96 12/05/21 15:09 97 12/05/21 11:58 95 Laboratory Results Laboratory Results - last 24 hr 12/04/21 12/05/21 12/05/21 22:23 06:45 06:45 WBC 11.34 H RBC 2.90 L Hgb 8.8 L D 8.5 L Hct 26.1 L 25.8 L MCV 89.0 D MCH 29.3 MCHC 32.9 RDW Std Deviation 55.8 H RDW Coeff of Tom 17.9 H Plt Count 273 MPV 8.4 Absolute Nucleated RBC 0.06 H Nucleated RBC % (auto) 0.6 Sodium 141 Potassium 4.4 Chloride 113 H Carbon Dioxide 25 Anion Gap 3 BUN 51 H D Creatinine 0.80 D Est Cr Clr Drug Dosing 46.0 Est GFR ( Amer) 79.0 Est GFR (Non-Af Amer) 68.2 BUN/Creatinine Ratio 63.8 H Glucose 103 H Calcium 8.6 PG Care Time/CCT Total # of Minutes Spent Total Time Spent with Patient: Total time spent is greater than 50% in coordination of care (as documented) at patient's floor/unit and/or counseling patient: Coding Level of Care Code 15092 Subseq Hosp Care Lvl 2 Diagnoses Acute blood loss anemia D62 Prerenal azotemia R79.89 Tachycardia R00.0 S/P hip hemiarthroplasty Z96.649 Seroma Dementia F03.90 Rheumatoid arthritis M06.9 HTN (hypertension) I10 COVID U07.1 Acute encephalopathy G93.40 Gastric ulcer K25.9 Esophagitis K20.90 UTI (urinary tract infection) N39.0
[2021-12-06] MEDS: SODIUM CHLORIDE 0.9% 1000ML 1,000 ML IV SCH ×2 (00:26→13:01)
[2021-12-06] MEDS: AMPICILLIN 1,000 MG in SODIUM CHLOR 0.9% AD-VAN 50 ML IV SCH ×2 (05:06→15:12)
[2021-12-06 07:16] LABS: Hematocrit (blood only) 24.3 % (37-47); Hemoglobin 7.9 g/dL (12.0-16.0); Mean Corpuscular Hemoglobin 29.7 pg (25-34); Mean Corpuscular Hgb Conc 32.5 g/dL (32-36); Mean Corpuscular Volume 91.4 fL (80-100); Mean Platelet Volume 8.2 fL (7.4-10.4); Platelet Count 234 K/uL (130-400); RDW Coefficient of Variation 17.9 % (11.5-14.5); RDW Standard Deviation 57.4 fL (36.4-46.3); Red Blood Count 2.66 M/uL (4.2-5.4); White Blood Count 17.08 K/uL (4.8-10.8)
[2021-12-06 07:43] LABS: BUN Creatinine Ratio 28.9 (10-20); Calcium 8.2 mg/dl (8.5-10.1); Creatinine Clr Calc Pharmacy 48.4 ml/min; Est GFR (African American) 84.1 ml/min; Est GFR (Non-African American) 72.5 ml/min; Potassium 3.8 mmol/L (3.5-5.1)
[2021-12-06] MEDS ORDERED: IRON SUCROSE 200 MG in 0.9 % SODIUM CHLORIDE 100 ML IV ONE (09:30)
[2021-12-06] MEDS: CYANOCOBALAMIN (B-12) 500 MCG TABLET PO SCH (11:08)
[2021-12-06] MEDS: PANTOprazole 40 MG in SYRINGE 0 ML IV SCH ×2 (11:09→22:00)
[2021-12-06] MEDS: RIVASTIGMINE TARTRATE 1.5 MG CAP PO SCH ×2 (11:09→17:30)
[2021-12-06] MEDS: VENLAFAXINE HCL XR 150 MG CAPXR PO SCH (12:49)
[2021-12-06] MEDS: QUEtiapine FUMARATE 50 MG TABCR PO SCH (12:50)
[2021-12-06] MEDS: ATORVASTATIN 10 MG TAB PO SCH (12:50)
[2021-12-06] MEDS: FOLIC ACID 1 MG TAB PO SCH (12:50)
[2021-12-06] MEDS: CETIRIZINE HCL 10 MG TABLET PO SCH (12:50)
[2021-12-06 13:17] LABS: Hematocrit (blood only) 23.3 % (37-47); Hemoglobin 7.5 g/dL (12.0-16.0)
[2021-12-06] MEDS ORDERED: SODIUM CHLORIDE 0.9% 250 ML IV PRN (13:32)
--- NOTE | 2021-12-06 16:14 | Hospitalist Progress Note ---
Date of Service December 06, 2021 Assessment & Plan (1) Gastric ulcer: Plan: x 4 on EGD 12/05/[address] Baird. 2nd to recent asa, celebrex, and lovenox use. all have been d/c for now. Cont PPI IV BID today as her H/H dropped once again. Uncertain if re-bleeding or just dilutional affect from IV fluids. Plan to Tx 1 additional unit of PRBCs today with repeat H/H following such. appreciate GI consult. ulcers likely contributed to #3 below. (2) Esophagitis: Plan: as seen on EGD. PPI IV. (3) Acute blood loss anemia: Plan: 2nd to upper GI bleeding. EGD findings noted. cont protonix 40mg IV BID due to ? of re-bleeding. cont to allow clear liquids and if stable overnight then resume normal diet on 12/07/21. s/p 2 units PRBCs early in stay with improvement in hemoglobin to >8. Hb now 7.5 - Tx 1 additional unit of PRBCs. repeat H/H post-Tx later today. then CBC in am. replace low-normal B12 - 1000mcg po daily. IV venofer 200mg x 1 today as well. (4) Prerenal azotemia: Plan: Severe, with BUN nearly 100 and Cr just over 1. Improved. Likely 2nd upper GI bleeding. See above. BMP am. (5) Tachycardia: Plan: Resolved. Was likely due to severe acute blood loss anemia/upper GI bleeding. Cont Telemetry. (6) S/P hip hemiarthroplasty: Plan: left hip fracture s/p ORIF 11/19/21 - Dr Ricco Ramirez. overall her operative site is stable although today there is more mild, warm erythema on adjacent skin -- developing cellulitis?? also - mild seroma on CT at time of admission - felt not to be the cause of her acute blood loss anemia. change ampicillin to amp/sulbactam to cover the skin more thoroughly if any developing infection. sent message to orthopedic PA for [facility] team asking them to re-eval the hip due to ?developing cellulitis. (7) Seroma: Plan: left hip region. see above. (8) Dementia: Plan: advanced, with superimposed acute encephalopathy. see below. (9) Rheumatoid arthritis: Plan: not on medications for such at this time. (10) HTN (hypertension): Plan: holding all anti-hypertensives (11) COVID: Plan: recently tested + for such during her hip fracture admission. was asymptomatic. 10+ days have elapsed since that test. no need for airborne isolation at this time. no signs of any lingering COVID symptoms or new symptoms. (12) Acute encephalopathy: Plan: METABOLIC - likely from UTI Rx the UTI supportive care (13) UTI (urinary tract infection): Plan: 2nd enterococcus and GNR change ampicillin to amp/sulbactam to cover the GNR as well (14) Constipation: Plan: dulcolax suppos x 1 today send stool for fecal occult Plan: son updated by phone extensively yesterday pm left message for him on his voicemail today cover L ant thigh ulceration w/ optifoam stop IV fluids - if H/H remain stable off fluids perhaps the drop in H/H today was dilutional Admission and Anticipated Discharge Date Admission Date: December 04, 2021 Subjective due to advanced dementia/confusion & Stateless as first language (previous attempts using Stateless research program manager were not fruitful nor successful) no meaningful history/ROS can be obtained from patient staff report she ate "fair/good" breakfast but little at lunch (slept most of lunch - attempts to wake up were not successful) does not appear to be in pain per staff no overt GI bleeding - no hematemesis; no BRBPR; no melena staff report constipation - no bowel movement since admission Review of Systems Review of Systems: Unobtainable due to cognitive status Physical Exam Physical Exam: gen - lying comfortably in bed, NAD, speaking in Stateless skin - generalized pallor; left hip - incision clean, but now there is mild warm erythema extending medially from the incision; abrasion anterior L thigh - scab has been removed, now with open ulcer; scattered resolving bruises on left thigh neck - no JVD mouth - MMM heart - RRR, s1 s2 lungs - CTA b/l abd - soft NT ND BS+ ext - no edema, pulses 2+ b/l Results & Data Results & Data ([facility]) Vital Signs (Past 12 Hours) Vital Signs Temp Pulse Pulse Resp BP BP BP 12/06/21 16:00 36.8 C 92 H 18 133/76 12/06/21 15:26 36.9 C 94 H 16 122/69 06/09/22 11:50 95 H 12/06/21 11:25 36.6 C 92 H 18 111/62 12/06/21 07:33 37.3 C 91 H 14 108/66 12/06/21 05:05 36.6 C 97 H 18 121/79 Pulse Ox 12/06/21 16:00 97 12/06/21 15:26 98 12/06/21 11:50 12/06/21 11:25 98 12/06/21 07:33 97 12/06/21 05:05 98 Laboratory Results Hb 7.5 (repeat this afternoon) bmp wnl PG Care Time/CCT Total # of Minutes Spent Total Time Spent with Patient: Total time spent is greater than 50% in coordination of care (as documented) at patient's floor/unit and/or counseling patient: Coding Level of Care Code 52529 Subseq Hosp Care Lvl 3 Diagnoses Gastric ulcer K25.9 Esophagitis K20.90 Acute blood loss anemia D62 Prerenal azotemia R79.89 Tachycardia R00.0 S/P hip hemiarthroplasty Z96.649 Seroma Dementia F03.90 Rheumatoid arthritis M06.9 HTN (hypertension) I10 COVID U07.1 Acute encephalopathy G93.40 UTI (urinary tract infection) N39.0 Constipation K59.00
[2021-12-06] MEDS ORDERED: bisacodyL 10 MG SUPP PR STA (19:33)
[2021-12-06 20:52] LABS: Hematocrit (blood only) 27.4 % (37-47)
[2021-12-06] MEDS: AMPICILLIN/SULBACTAM SOD 3,000 MG in 0.9 % SODIUM CHLORIDE 100 ML IV SCH (20:57)
[2021-12-06] MEDS: MIRTAZAPINE TAB 15 MG TAB PO SCH (21:11)
[2021-12-06] MEDS: QUEtiapine FUMARATE 200 MG TAB PO SCH (21:11)
[2021-12-07] MEDS: AMPICILLIN/SULBACTAM SOD 3,000 MG in 0.9 % SODIUM CHLORIDE 100 ML IV SCH ×4 (00:57→19:19)
[2021-12-07 07:17] LABS: Basophils # (auto) 0.02 K/uL (0-0.2); Basophils % (auto) 0.3 %; Eosinophils % (auto) 4.1 %; Hematocrit (blood only) 28.8 % (37-47); Hemoglobin 9.3 g/dL (12.0-16.0); Immature Granulocytes # (auto) 0.02 K/uL (0.00-0.02); Immature Granulocytes % (auto) 0.3 %; Mean Corpuscular Hemoglobin 29.4 pg (25-34); Mean Corpuscular Hgb Conc 32.3 g/dL (32-36); Mean Corpuscular Volume 91.1 fL (80-100); Mean Platelet Volume 8.7 fL (7.4-10.4); Monocytes # (auto) 0.58 K/uL (0.11-0.59); Monocytes % (auto) 7.9 %; Neutrophils # (auto) 5.58 K/uL (1.4-6.5); Neutrophils % (auto) 76.4 %; Platelet Count 235 K/uL (130-400); RDW Coefficient of Variation 17.7 % (11.5-14.5); RDW Standard Deviation 54.1 fL (36.4-46.3); Red Blood Count 3.16 M/uL (4.2-5.4)
[2021-12-07 07:48] LABS: BUN Creatinine Ratio 17.2 (10-20); Calcium 8.4 mg/dl (8.5-10.1); Creatinine Clr Calc Pharmacy 57.5 ml/min; Est GFR (African American) 95.6 ml/min; Est GFR (Non-African American) 82.5 ml/min; Potassium 3.4 mmol/L (3.5-5.1)
[2021-12-07] MEDS ORDERED: IRON SUCROSE 200 MG in 0.9 % SODIUM CHLORIDE 100 ML IV ONE (09:00)
--- NOTE | 2021-12-07 09:08 | Orthopedic Progress Note ---
Date of Service December 07, 2021 Assessment & Plan (1) S/P hip hemiarthroplasty: Plan: After physical examination I do not feel that there is any concern for infection at this time. Mild surrounding erythema at the incision site is a normal postoperative appearance. Once medically stable, recommend PT/OT. Continue with ice, pain control, and DVT prophylaxis per primary Service. Admission and Anticipated Discharge Date Admission Date: December 04, 2021 Subjective This 81-year-old female is seen this morning for evaluation of her left hip after being contacted by medicine service last evening. They are concerned about cellulitis around her incision site. Presently patient is resting comfortably in bed with a smile on her face watching cartoons on television. She does not seem to be in any type of discomfort whatsoever. I was not able to obtain a complete review of systems due to the patient's not being able to speak Czech and due to her dementia. Review of Systems Review of Systems: Unobtainable due to cognitive status and Other (Language issue (Patient speaks Mandarin Amharic only)) Physical Exam Physical Exam: Left hip: Surgical incision site is closed completely with no palpable fluctuance, open skin areas or discharge. There is some slight erythema around the incision site but no concern for any type of cellulitis or infection. This is normal postoperative healing. Patient has no tenderness over the area. She is able to perform active straight leg raise test. She tolerates knee flexion to 90 degrees as well as hip flexion to about 70 degrees. She does not moan or seen in discomfort with light passive internal or external hip rotation. She also tolerates logroll test very well. Peripheral pulses are 2+. Capillary fill is less than 2 seconds. Patient is neurovascularly intact in the left lower extremity. Results & Data ([facility]) Vital Signs (Past 12 Hours) Vital Signs Temp Pulse Pulse Resp BP Pulse Ox 12/07/21 08:14 36.7 C 79 19 117/73 98 12/07/21 03:28 36.8 C 84 20 118/69 96 12/06/21 22:54 108 H 12/06/21 22:20 36.6 C 103 H 20 124/71 93 Diagnostic Findings Laboratory Results WBC 7.30 K/uL (4.8-10.8) 12/07/21 06:55 RBC 3.16 M/uL (4.2-5.4) L 12/07/21 06:55 Hgb 9.3 g/dL (12.0-16.0) L 12/07/21 06:55 Hct 28.8 % (37-47) L 12/07/21 06:55 MCV 91.1 fL (80-100) 12/07/21 06:55 MCH 29.4 pg (25-34) 12/07/21 06:55 MCHC 32.3 g/dL (32-36) 12/07/21 06:55 RDW Std Deviation 54.1 fL (36.4-46.3) H 12/07/21 06:55 RDW Coeff of Tom 17.7 % (11.5-14.5) H 12/07/21 06:55 Plt Count 235 K/uL (130-400) 12/07/21 06:55 MPV 8.7 fL (7.4-10.4) 12/07/21 06:55 Immature Gran % (Auto) 0.3 % 12/07/21 06:55 Neut % (Auto) 76.4 % 12/07/21 06:55 Lymph % (Auto) 11.0 % 12/07/21 06:55 [place] % (Auto) 7.9 % 12/07/21 06:55 Eos % (Auto) 4.1 % 12/07/21 06:55 Baso % (Auto) 0.3 % 12/07/21 06:55 Neut # (Auto) 5.58 K/uL (1.4-6.5) 12/07/21 06:55 Lymph # (Auto) 0.80 K/uL (1.2-3.4) L 12/07/21 06:55 [place] # (Auto) 0.58 K/uL (0.11-0.59) 12/07/21 06:55 Eos # (Auto) 0.30 K/uL (0-0.5) 12/07/21 06:55 Baso # (Auto) 0.02 K/uL (0-0.2) 12/07/21 06:55 Immature Gran # (Auto) 0.02 K/uL (0.00-0.02) 12/07/21 06:55 Absolute Nucleated RBC 0.06 K/uL (0-0) H 12/05/21 06:45 Nucleated RBC % (auto) 0.6 % 12/05/21 06:45 PT 10.4 Seconds (9.0-12.0) 12/04/21 11:30 INR 1.0 (0.9-1.1) 12/04/21 11:30 APTT 21.8 Seconds (21.0-31.0) 12/04/21 11:30 PTT Ratio 0.8 12/04/21 11:30 Sodium 138 mmol/L (136-145) 12/07/21 06:55 Potassium 3.4 mmol/L (3.5-5.1) L 12/07/21 06:55 Chloride 109 mmol/L (98-107) H 12/07/21 06:55 Carbon Dioxide 23 mmol/L (21-32) 12/07/21 06:55 Anion Gap 6 (3-11) 12/07/21 06:55 BUN 11 mg/dl (6-23) 12/07/21 06:55 Creatinine 0.64 mg/dl (0.6-1.2) 12/07/21 06:55 Est Cr Clr Drug Dosing 57.5 ml/min 12/07/21 06:55 Est GFR ( Amer) 95.6 ml/min 12/07/21 06:55 Est GFR (Non-Af Amer) 82.5 ml/min 12/07/21 06:55 BUN/Creatinine Ratio 17.2 (10-20) 12/07/21 06:55 Glucose 101 mg/dl (70-99(Fasting)) H 12/07/21 06:55 Calcium 8.4 mg/dl (8.5-10.1) L 12/07/21 06:55 Iron 87 mcg/dl (35-150) 12/04/21 11:30 TIBC 231 mcg/dl (250-450) L 12/04/21 11:30 Unsaturated IBC 144 mcg/dl (155-355) L 12/04/21 11:30 Transferrin % Sat 38 % (15-50) 12/04/21 11:30 Ferritin 76.5 ng/ml (8-388) 12/04/21 11:30 Total Bilirubin 0.2 mg/dl (0.2-1.0) 12/04/21 11:30 AST 30 U/L (13-39) 12/04/21 11:30 ALT 26 U/L (7-52) 12/04/21 11:30 Alkaline Phosphatase 91 U/L (34-104) 12/04/21 11:30 Troponin I High Sens 5.9 pg/ml (0-14) 12/04/21 11:30 Total Protein 5.4 gm/dl (6.0-8.3) L 12/04/21 11:30 Albumin 2.9 gm/dl (3.4-5.0) L 12/04/21 11:30 Globulin 2.5 gm/dl (2.5-4.0) 12/04/21 11:30 Albumin/Globulin Ratio 1.2 (0.9-2) 12/04/21 11:30 Lipase 32 U/L (11-82) 12/04/21 11:30 Vitamin B12 322 pg/ml (180-914) 12/04/21 11:30 Folate > 22.30 ng/ml (>5.38) 12/04/21 11:30 Procalcitonin 0.10 ng/ml (0-0.5) 12/06/21 20:38 Urine Color Yellow 12/04/21 13:51 Urine Appearance Clear (Clear) 12/04/21 13:51 Urine pH 5.5 (4.5-7.5) 12/04/21 13:51 Ur Specific [place] 1.026 (1.000-1.030) 12/04/21 13:51 Urine Protein Negative (Negative) 12/04/21 13:51 Urine Glucose (UA) Negative (Negative) 12/04/21 13:51 Urine Ketones Negative (Negative) 12/04/21 13:51 Urine Blood Negative (Negative) 12/04/21 13:51 Urine Nitrite Negative (Negative) 12/04/21 13:51 Urine Bilirubin Negative (Negative) 12/04/21 13:51 Urine Urobilinogen Negative (Negative) 12/04/21 13:51 Ur Leukocyte Esterase 2+ (Negative) H 12/04/21 13:51 Urine WBC (Auto) >30 /hpf (0-5) H 12/04/21 13:51 Urine RBC (Auto) 0-4 /hpf (0-4) 12/04/21 13:51 U Hyaline Cast (Auto) 1-5 /lpf (0-5) 12/04/21 13:51 U Epithel Cells (Auto) 5-10 /lpf (0-5) H 12/04/21 13:51 Urine Bacteria (Auto) Negative (Negative) 12/04/21 13:51 Stool Occult Bld Scrn Negative (Negative) 12/07/21 01:22 SARS-CoV-2, RNA, NAAT NEGATIVE (NEGATIVE) 12/04/21 11:25 Blood Type AB Positive 12/04/21 11:21 Blood Type Recheck AB Positive 12/04/21 12:00 Antibody Screen NEGATIVE 12/04/21 11:21 Crossmatch See Detail 12/04/21 11:21 Impressions Chest X-Ray 12/04/21 11:10 XR chest 1V portable CLINICAL HISTORY: Chest Pain. COMPARISON STUDY: No previous studies for comparison. TECHNIQUE: 1 view of the chest FINDINGS: Single frontal view of the chest demonstrates the cardiomediastinal silhouette to be within normal limits. The lungs are clear of alveolar opacities. There is no evidence for pleural effusion. There is no evidence for vascular congestion. There is no acute osseous pathology. IMPRESSION: 1. No acute cardiopulmonary disease. ACT 112: Negative or not required by law. Electronically signed by: Kirill Maldonado M.D. 12/04/2021 11:45 AM Abdomen/Pelvis CT 12/04/21 11:30 CT SCAN OF THE ABDOMEN AND PELVIS WITH IV CONTRAST CLINICAL HISTORY: General is abdominal pain. Anemia. COMPARISON STUDY: No priors. TECHNIQUE: Following the IV administration of 95 cc of Optiray 320, CT scan of the abdomen and pelvis is performed from the lung bases to the proximal femora. Images are reviewed in the axial, sagittal, and coronal planes. IV contrast was administered without complication. A dose lowering technique was utilized adhering to the principles of ALARA. Examination is degraded by motion artifact, as well as by streak artifact from the arms which could not elevated above the abdomen. FINDINGS: Lung bases: The heart is normal in size and without pericardial effusion. The lung bases are clear noting dependent scarring/atelectasis. There is a small hiatal hernia. Circumferential wall thickening is suggested in the distal centimeters. Liver: The contrast-enhanced liver is normal in size, contour, and attenuation. There is no intrahepatic biliary ductal dilatation. The hepatic veins and portal veins are patent. Gallbladder: Unremarkable. Spleen: Normal in size and attenuation. There is a 12 mm splenic artery aneurysm seen on image #88. Pancreas: Moderately atrophic and grossly unremarkable. Adrenal glands: Unremarkable. Kidneys: The contrast enhanced kidneys are atrophic and without hydronephrosis. The kidneys enhance symmetrically. There is a 4.3 cm right renal cyst. Additional subcentimeter cortical hypodensities also likely represent cysts but are too small for definitive characterization. Abdominal vasculature: There is moderate atherosclerotic calcification mild ectasia of the abdominal aorta. Bowel: There is moderate colonic fecal retention. No bowel obstruction is seen. There is mild diverticulosis of the right colon without CT evidence of acute diverticulitis. A duodenal diverticulum is incidentally noted. The appendix is well-visualized and normal. Peritoneum/retroperitoneum: No retroperitoneal hemorrhage is identified. There is no intraperitoneal free air or abdominal ascites. Lymphadenopathy: None. Pelvic viscera: Evaluation of the pelvis is degraded by streak artifact from a left hip arthroplasty. The bladder, uterus, and adnexa are normal as visualized. Skeletal structures: The skeletal structures are osteopenic. No lytic or blastic lesions are seen. There is mild lumbosacral spondylosis. A left hip arthroplasty is in place. Soft tissue induration overlies the left hip and there is a fluid collection partially visualized around the proximal left femur. IMPRESSION: 1. No acute infectious or inflammatory findings are identified in the abdomen or pelvis. 2. Soft tissue induration overlies the left hip and a fluid collection is partially visualized around the left proximal femur femur. This may represent expected postoperative change and a seroma/hematoma. See report of CT scan of the left hip performed concurrently for detailed findings. 3. The distal esophagus appears circumferentially thick walled. Correlate clinically for evidence of esophagitis. 4. There is a 12 mm splenic artery aneurysm. 5. Additional findings as above. ACT 112: Negative or not required by law. Electronically signed by: William Keen M.D. 12/04/2021 1:[address] 12/04/21 12:25 CT hip LT wo con HISTORY: 81 years-old Female anemia, recent surgery acute pain of the left hip with recent surgery COMPARISON: Pelvis and left hip radiographs 11/18/2021 TECHNIQUE: Multiple axial CT images of the left hip were obtained following the intravenous administration of 95 mL Optiray 320. A dose lowering technique was used consistent with the principals of KEITH. FINDINGS: Calcified uterine fibroids. Moderate fecal retention. No acute intrapelvic abnormality identified. Satisfactory alignment of the left hip total joint arthroplasty. Streak artifact from the hardware limits the study. No definite acute fracture or dislocation is identified. The imaged left hemipelvis also appears intact. There is a peripherally enhancing fluid collection along the posterior margin of the proximal left femur at the level of the lesser trochanter measuring up to 15 x 1.5 x 6.5 cm in transverse, AP and craniocaudal dimensions. IMPRESSION: 1. Unremarkable appearance of the left hip total joint arthroplasty. No dislocation or acute fracture. 2. Indeterminate fluid collection posterior to the proximal left femur, possibly a seroma. ACT 112: Negative or not required by law. The above report was generated using voice recognition software. It may contain grammatical, syntax or spelling errors. Electronically signed by: Leonardo Sarmiento M.D. 12/04/2021 1:41 PM Venous Doppler Study 12/04/21 14:35 US venous doppler LE CLINICAL HISTORY: Bilateral leg pain and swelling COMPARISON: None available at the time of this dictation. TECHNIQUE: Bilateral lower extremity real-time compression venous ultrasound with Color Doppler imaging. Utilizing real-time ultrasonic imaging multiple real time high-resolution ultrasonic images with compression and noncompression maneuvers of the deep venous system in addition to color doppler imaging were performed from the common femoral vein through the proximal calf veins. FINDINGS: Currently there is normal compressibility of the deep venous system from the common femoral vein through the proximal calf veins. No current evidence of acute thrombosis is identified. Impression: No evidence of deep venous thrombus. ACT 112: Negative or not required by law. Electronically signed by: Kirill Maldonado M.D. 12/05/2021 7:16 AM
[2021-12-07] MEDS: CYANOCOBALAMIN (B-12) 500 MCG TABLET PO SCH (09:14)
[2021-12-07] MEDS: VENLAFAXINE HCL XR 150 MG CAPXR PO SCH (09:14)
[2021-12-07] MEDS: CETIRIZINE HCL 10 MG TABLET PO SCH (09:14)
[2021-12-07] MEDS: ATORVASTATIN 10 MG TAB PO SCH (09:14)
[2021-12-07] MEDS: QUEtiapine FUMARATE 50 MG TABCR PO SCH (09:14)
[2021-12-07] MEDS: PANTOprazole 40 MG in SYRINGE 0 ML IV SCH ×2 (09:15→19:48)
[2021-12-07] MEDS: RIVASTIGMINE TARTRATE 1.5 MG CAP PO SCH ×2 (09:15→17:58)
[2021-12-07] MEDS: FOLIC ACID 1 MG TAB PO SCH (09:15)
[2021-12-07] MEDS: POTASSIUM CHLORIDE CRTAB 20 MEQ TABCR PO SCH ×2 (09:18→19:48)
[2021-12-07] MEDS: MIRTAZAPINE TAB 15 MG TAB PO SCH (19:47)
[2021-12-07] MEDS: QUEtiapine FUMARATE 200 MG TAB PO SCH (19:50)
--- NOTE | 2021-12-07 20:31 | Hospitalist Progress Note ---
Date of Service December 07, 2021 Assessment & Plan (1) Gastric ulcer: Plan: x 4 on EGD 12/05/[address] Baird. 2nd to recent asa, celebrex, and lovenox use. all have been d/c for now. Cont PPI IV BID today. No further drop in H/H. No signs of ongoing GI bleeding. No signs of bleeding from left hip region. She is s/p 3 units of PRBCs in total since admission. appreciate GI consult. appreciate ortho consult. ulcers likely contributed to #3 below. (2) Esophagitis: Plan: as seen on EGD. PPI IV. likely change to PO PPI tomorrow. (3) Acute blood loss anemia: Plan: 2nd to upper GI bleeding. EGD findings noted. cont protonix 40mg IV BID. s/p 3 units PRBCs in total since admission. replace low-normal B12 - 1000mcg po daily. IV venofer 200mg x 1 again today - this is dose #2. repeat cbc AM. (4) Prerenal azotemia: Plan: Severe, with BUN nearly 100 and Cr just over 1. Resolved. Likely 2nd upper GI bleeding. (5) Tachycardia: Plan: Resolved. Was likely due to severe acute blood loss anemia/upper GI bleeding. Cont Telemetry. (6) S/P hip hemiarthroplasty: Plan: left hip fracture s/p ORIF 11/19/21 - Dr Ricco Ramirez. overall her operative site is stable. orthopedics saw again today - they do not feel she has any surrounding left thigh cellulitis. also - mild seroma on CT at time of admission - felt not to be the cause of her acute blood loss anemia. (7) Seroma: Plan: left hip region. see above. no Rx needed. (8) Dementia: Plan: advanced, with superimposed acute encephalopathy. see below. (9) Rheumatoid arthritis: Plan: not on medications for such at this time. (10) HTN (hypertension): Plan: holding all anti-hypertensives BPs controlled w/o them (11) COVID: Plan: recently tested + for such during her hip fracture admission. was asymptomatic. 10+ days have elapsed since that test. no need for airborne isolation at this time. no signs of any lingering COVID symptoms or new symptoms. (12) Acute encephalopathy: Plan: METABOLIC - likely from UTI TOXIC - AM dose of seroquel?? hold AM seroquel moving forward but allow her bedtime seroquel as prior nonfocal neuro exam today monitor carefully Rx the UTI supportive care (13) UTI (urinary tract infection): Plan: 2nd enterococcus and GNR cont amp/sulbactam to cover the GNR as well leukocytosis resolved cbc am (14) Constipation: Plan: improved s/p dulcolax suppos needs bowel regimen Plan: DVT proph - SCDs if H/H remain stable next 48 hours resume low-dose SC heparin or similar low K - replace with kdur 20meq BID x 4 doses BMP with mag in am son updated by phone extensively this week left message for him on his voicemail today and yesterday PT, OT dispo - back to [facility] when medically ready Admission and Anticipated Discharge Date Admission Date: December 04, 2021 Subjective no events overnight apparently took a good breakfast this am took all AM pills went to sleep was very lethargic for remainder of the day shift during my assessment (early afternoon) she was very drowsy/sleepy she did wake up during my exam when I was performing a neurological exam she pulled the covers up over herself and was moving all 4 limbs equally she muttered some words in Iranian otherwise no meaningful history or ROS could be obtained Review of Systems Review of Systems: Unobtainable due to cognitive status Physical Exam Physical Exam: gen - very sleepy/drowsy today but awoke during the exam skin - generalized pallor; left hip - incision clean, mild erythema extending medially from the incision; abrasion anterior L thigh covered w/ optifoam; scattered resolving bruises on left thigh neck - no JVD eyes - PERRL mouth - MMM heart - RRR, s1 s2 lungs - CTA b/l abd - soft NT ND BS+ ext - no edema, pulses 2+ b/l neuro - moves all 4 limbs equally; no facial droop; negative babinski's Results & Data Results & [facility] ([facility]) Vital Signs (Past 12 Hours) Vital Signs Temp Pulse Pulse Pulse Resp BP Pulse Ox 12/07/21 19:31 37.0 C 87 18 123/77 98 12/07/21 15:33 77 12/07/21 15:21 36.7 C 78 19 144/82 H 95 12/07/21 12:18 36.8 C 77 18 138/80 98 Laboratory Results Laboratory Results - last 24 hr 12/06/21 12/06/21 12/07/21 20:38 20:38 01:22 WBC RBC Hgb 9.0 L Hct 27.4 L MCV MCH MCHC RDW Std Deviation RDW Coeff of Tom Plt Count MPV Immature Gran % (Auto) Neut % (Auto) Lymph % (Auto) [place] % (Auto) Eos % (Auto) Baso % (Auto) Neut # (Auto) Lymph # (Auto) [place] # (Auto) Eos # (Auto) Baso # (Auto) Immature Gran # (Auto) Sodium Potassium Chloride Carbon Dioxide Anion Gap BUN Creatinine Est Cr Clr Drug Dosing Est GFR ( Amer) Est GFR (Non-Af Amer) BUN/Creatinine Ratio Glucose POC Glucose Calcium Procalcitonin 0.10 Stool Occult Bld Scrn Negative 12/07/21 12/07/21 12/07/21 06:55 06:55 12:23 WBC 7.30 RBC 3.16 L Hgb 9.3 L Hct 28.8 L MCV 91.1 MCH 29.4 MCHC 32.3 RDW Std Deviation 54.1 H RDW Coeff of Tom 17.7 H Plt Count 235 MPV 8.7 Immature Gran % (Auto) 0.3 Neut % (Auto) 76.4 Lymph % (Auto) 11.0 [place] % (Auto) 7.9 Eos % (Auto) 4.1 Baso % (Auto) 0.3 Neut # (Auto) 5.58 Lymph # (Auto) 0.80 L [place] # (Auto) 0.58 Eos # (Auto) 0.30 Baso # (Auto) 0.02 Immature Gran # (Auto) 0.02 Sodium 138 Potassium 3.4 L Chloride 109 H Carbon Dioxide 23 Anion Gap 6 BUN 11 Creatinine 0.64 Est Cr Clr Drug Dosing 57.5 Est GFR ( Amer) 95.6 Est GFR (Non-Af Amer) 82.5 BUN/Creatinine Ratio 17.2 Glucose 101 H POC Glucose 87 Calcium 8.4 L Procalcitonin Stool Occult Bld Scrn PG Care Time/CCT Total # of Minutes Spent Total Time Spent with Patient: Total time spent is greater than 50% in coordination of care (as documented) at patient's floor/unit and/or counseling patient: Coding Level of Care Code 42725 Subseq Hosp Care Lvl 3 Diagnoses Gastric ulcer K25.9 Esophagitis K20.90 Acute blood loss anemia D62 Prerenal azotemia R79.89 Tachycardia R00.0 S/P hip hemiarthroplasty Z96.649 Seroma Dementia F03.90 Rheumatoid arthritis M06.9 HTN (hypertension) I10 COVID U07.1 Acute encephalopathy G93.40 UTI (urinary tract infection) N39.0 Constipation K59.00
[2021-12-08] MEDS: AMPICILLIN/SULBACTAM SOD 3,000 MG in 0.9 % SODIUM CHLORIDE 100 ML IV SCH ×4 (00:11→19:27)
[2021-12-08 07:31] LABS: Hematocrit (blood only) 29.8 % (37-47); Hemoglobin 9.6 g/dL (12.0-16.0); Mean Corpuscular Hemoglobin 30.3 pg (25-34); Mean Corpuscular Hgb Conc 32.2 g/dL (32-36); Mean Platelet Volume 8.9 fL (7.4-10.4); Platelet Count 258 K/uL (130-400); RDW Coefficient of Variation 17.6 % (11.5-14.5); RDW Standard Deviation 56.5 fL (36.4-46.3); Red Blood Count 3.17 M/uL (4.2-5.4); White Blood Count 4.96 K/uL (4.8-10.8)
[2021-12-08 07:52] LABS: BUN Creatinine Ratio 13.3 (10-20); Calcium 8.4 mg/dl (8.5-10.1); Creatinine Clr Calc Pharmacy 44.3 ml/min; Est GFR (African American) 75.6 ml/min; Est GFR (Non-African American) 65.2 ml/min; Potassium 3.8 mmol/L (3.5-5.1)
[2021-12-08] MEDS: SENNA 8.6 MG TAB PO SCH (08:32)
[2021-12-08] MEDS: POTASSIUM CHLORIDE CRTAB 20 MEQ TABCR PO SCH ×2 (08:32→20:00)
[2021-12-08] MEDS: PANTOprazole 40 MG in SYRINGE 0 ML IV SCH ×2 (08:32→19:59)
[2021-12-08] MEDS: RIVASTIGMINE TARTRATE 1.5 MG CAP PO SCH ×2 (08:33→17:09)
[2021-12-08] MEDS: VENLAFAXINE HCL XR 150 MG CAPXR PO SCH (08:33)
[2021-12-08] MEDS: FOLIC ACID 1 MG TAB PO SCH (08:33)
[2021-12-08] MEDS: ATORVASTATIN 10 MG TAB PO SCH (08:33)
[2021-12-08] MEDS: CYANOCOBALAMIN (B-12) 500 MCG TABLET PO SCH (08:33)
[2021-12-08] MEDS: CETIRIZINE HCL 10 MG TABLET PO SCH (08:33)
[2021-12-08] MEDS: POLYETHYLENE (MIRALAX) 17 GM PACK PO SCH (08:33)
--- NOTE | 2021-12-08 17:02 | Hospitalist Progress Note ---
Date of Service December 08, 2021 Assessment & Plan (1) Gastric ulcer: Plan: x 4 on EGD 12/05/[address] Baird. 2nd to recent asa, celebrex, and lovenox use. all have been d/c for now. Cont PPI - change to PO BID dosing. No further drop in H/H. No signs of ongoing GI bleeding. No signs of bleeding from left hip region. She is s/p 3 units of PRBCs in total since admission. appreciate GI consult. appreciate ortho consult. ulcers likely contributed to #3 below. (2) Esophagitis: Plan: as seen on EGD. cont PPI (3) Acute blood loss anemia: Plan: 2nd to upper GI bleeding. EGD findings noted. cont protonix 40mg BID. Can change to PO PPI. s/p 3 units PRBCs in total since admission. replace low-normal B12 - 1000mcg po daily. IV venofer 200mg x 1 again today. repeat cbc AM for stability purposes. (4) Prerenal azotemia: Plan: Severe, with BUN nearly 100 and Cr just over 1. Resolved. Was likely 2nd upper GI bleeding. (5) Tachycardia: Plan: Resolved. Was likely due to severe acute blood loss anemia/upper GI bleeding. Cont Telemetry. (6) S/P hip hemiarthroplasty: Plan: left hip fracture s/p ORIF 11/19/21 - Dr Ricco Ramirez. overall her operative site is stable. orthopedics saw again - they do not feel she has any surrounding left thigh cellulitis. also - mild seroma on CT at time of admission - felt not to be the cause of her acute blood loss anemia. (7) Seroma: Plan: left hip region. see above. no Rx needed. (8) Dementia: Plan: advanced, with superimposed acute encephalopathy. see below. (9) Rheumatoid arthritis: Plan: not on medications for such at this time. (10) HTN (hypertension): Plan: holding all anti-hypertensives BPs cont to be controlled w/o them (11) COVID: Plan: recently tested + for such during her hip fracture admission. was asymptomatic. 10+ days have elapsed since that test. no need for airborne isolation at this time. no signs of any lingering COVID symptoms or new symptoms. (12) Acute encephalopathy: Plan: METABOLIC - likely from UTI TOXIC - AM dose of seroquel with holding AM seroqule and treating her UTI her mental status seemed very good today cooperative, happy, smiling cont abx for UTI cont to hold AM seroquel but continue HS seroquel (13) UTI (urinary tract infection): Plan: 2nd enterococcus and GNR cont amp/sulbactam to cover the GNR as well leukocytosis resolved cbc am can change to PO augmentin 12/09/21 (14) Constipation: Plan: improved s/p dulcolax suppos needs bowel regimen - senna + miralax Plan: DVT proph - SCDs but resume chemical - high risk of DVT - heparin 5000 SC BID low K - replaced/resolved son updated by phone extensively today PT, OT dispo - back to [facility] - 12/09/21? Admission and Anticipated Discharge Date Admission Date: December 04, 2021 Subjective no events overnight had good breakfast this am per staff during my AM rounds she was very awake talking in Mandarin Khmer incessantly smiling, laughing, cooperative, not agitated staff report no concerning issues I spoke with her son by phone today -- he stated that when he spoke with her that her mental status is near baseline dementia is "advanced" - often times she doesn't recognize him or other familiar people we discussed her AM seroquel and that this may be causing excess daytime sedation - he is ok with holding such tele overnight wnl Review of Systems Review of Systems: Unobtainable due to cognitive status Physical Exam Physical Exam: gen - very awake, alert, smiling/happy, cooperative, not agitated skin - generalized pallor; left hip - incision clean, mild erythema extending medially from the incision now resolved; abrasion anterior L thigh; scattered resolving bruises on left thigh neck - no JVD mouth - MMM heart - RRR, s1 s2, no murmur lungs - CTA b/l abd - soft NT ND BS+ ext - no edema, pulses 2+ b/l neuro - moves all 4 limbs equally psych - oriented to person?? Results & Data Results & Data ([facility]) Vital Signs (Past 12 Hours) Vital Signs Temp Pulse Pulse Resp BP Pulse Ox 12/08/21 15:38 83 18 162/83 H 98 12/08/21 15:00 78 12/08/21 07:50 73 06/11/22 07:34 36.5 C 81 17 147/85 H 96 Laboratory Results Laboratory Results - last 24 hr 12/04/21 12/08/21 12/08/21 11:21 06:30 06:30 WBC 4.96 RBC 3.17 L Hgb 9.6 L Hct 29.8 L MCV 94.0 MCH 30.3 MCHC 32.2 RDW Std Deviation 56.5 H RDW Coeff of Tom 17.6 H Plt Count 258 MPV 8.9 Sodium 142 Potassium 3.8 Chloride 110 H Carbon Dioxide 27 Anion Gap 5 BUN 11 Creatinine 0.83 Est Cr Clr Drug Dosing 44.3 Est GFR ( Amer) 75.6 Est GFR (Non-Af Amer) 65.2 BUN/Creatinine Ratio 13.3 Glucose 85 Calcium 8.4 L Magnesium 2.0 Crossmatch See Detail PG Care Time/CCT Total # of Minutes Spent Total Time Spent with Patient: Total time spent is greater than 50% in coordination of care (as documented) at patient's floor/unit and/or counseling patient: Coding Level of Care Code 55403 Subseq Hosp Care Lvl 3 Diagnoses Gastric ulcer K25.9 Esophagitis K20.90 Acute blood loss anemia D62 Prerenal azotemia R79.89 Tachycardia R00.0 S/P hip hemiarthroplasty Z96.649 Seroma Dementia F03.90 Rheumatoid arthritis M06.9 HTN (hypertension) I10 COVID U07.1 Acute encephalopathy G93.40 UTI (urinary tract infection) N39.0 Constipation K59.00
[2021-12-08] MEDS ORDERED: IRON SUCROSE 200 MG in 0.9 % SODIUM CHLORIDE 100 ML IV ONE (17:30)
[2021-12-08] MEDS: MIRTAZAPINE TAB 15 MG TAB PO SCH (19:59)
[2021-12-08] MEDS: QUEtiapine FUMARATE 200 MG TAB PO SCH (20:01)
[2021-12-09] MEDS: AMPICILLIN/SULBACTAM SOD 3,000 MG in 0.9 % SODIUM CHLORIDE 100 ML IV SCH ×2 (00:10→06:02)
[2021-12-09] MEDS: CETIRIZINE HCL 10 MG TABLET PO SCH (07:51)
[2021-12-09] MEDS: VENLAFAXINE HCL XR 150 MG CAPXR PO SCH (07:52)
[2021-12-09] MEDS: CYANOCOBALAMIN (B-12) 500 MCG TABLET PO SCH (07:52)
[2021-12-09] MEDS: FOLIC ACID 1 MG TAB PO SCH (07:54)
[2021-12-09] MEDS: RIVASTIGMINE TARTRATE 1.5 MG CAP PO SCH (07:55)
[2021-12-09] MEDS: ATORVASTATIN 10 MG TAB PO SCH (07:55)
[2021-12-09] MEDS: SENNA 8.6 MG TAB PO SCH (07:57)
[2021-12-09] MEDS: POLYETHYLENE (MIRALAX) 17 GM PACK PO SCH (07:57)
[2021-12-09] MEDS ORDERED: AMOXICILLIN/CLAVULANATE 875 MG TAB PO SCH (08:00)
[2021-12-09 08:43] LABS: Hematocrit (blood only) 32.6 % (37-47); Hemoglobin 10.5 g/dL (12.0-16.0); Mean Corpuscular Hemoglobin 30.6 pg (25-34); Mean Corpuscular Hgb Conc 32.2 g/dL (32-36); Mean Platelet Volume 8.8 fL (7.4-10.4); Platelet Count 307 K/uL (130-400); RDW Coefficient of Variation 17.3 % (11.5-14.5); RDW Standard Deviation 58.4 fL (36.4-46.3); Red Blood Count 3.43 M/uL (4.2-5.4); White Blood Count 6.07 K/uL (4.8-10.8)
[2021-12-09] MEDS ORDERED: PANTOprazole 40 MG TAB PO SCH (09:00)
[2021-12-09] MEDS ORDERED: HEPARIN SOD 5,000 UNIT/0.5 ML VIAL SQ SCH (09:00)
[2021-12-09 09:05] LABS: BUN Creatinine Ratio 13.4 (10-20); Creatinine Clr Calc Pharmacy 44.9 ml/min; Est GFR (African American) 76.7 ml/min; Est GFR (Non-African American) 66.2 ml/min; Potassium 3.8 mmol/L (3.5-5.1)
--- NOTE | 2021-12-09 11:14 | Discharge Summary ---
Date of Service date of admission - December 04, 2021 date of discharge - December 09, 2021 Admission HPI Per Admitting Provider 81yo female with advanced dementia, HTN, and hyperlipidemia. She was recently hospitalized from 11/18 to 11/28 for left hip fracture s/p ORIF by Dr Ricco Ramirez ([facility]) on 11/19. Her course was complicated by asymptomatic COVID-19 infection and acute blood loss anemia with hemoglobin in the ~8.5 range post-op for several days. On 11/28/21 she was transferred to [facility] for acute inpatient rehab. Due to her dementia as well as Palestinian being her chilkat language no information could be obtained from the patient directly and no family was available for additional information. However, I did speak with her daughter by phone shortly after my bedside assessment. Her daughter reported that on 12/02/21 her hemoglobin was 8.4, and upon recheck today was 5.5. Therefore she was sent to [facility] ER for evaluation. Hb here at [facility] was 4.9. By the ER attending's report her stool was heme negative. The patient's daughter states that her rehab at [facility] was going ok. She had been eating/drinking fairly. There had been no overt GI bleeding or any bleeding from the left hip operative site. Daughter did mention that ever since the hospitalization for the hip fracture she has "not been herself" with worsening confusion above/beyond her typical baseline. Principal Diagnosis 1. severe acute blood loss anemia 2nd to upper GI bleeding 2. esophagitis 3. multiple gastric ulcers 4. acute metabolic encephalopathy 5. advanced dementia 6. UTI Discharge Exam gen - very awake, alert, smiling/happy, cooperative, not agitated; speaking fast in her chilkat Mandarin Palestinian skin - generalized pallor; left hip - incision clean, mild erythema extending medially from the incision now resolved; abrasion anterior L thigh; scattered resolving bruises on left thigh neck - no JVD mouth - MMM heart - RRR, s1 s2, no murmur lungs - CTA b/l abd - soft NT ND BS+ ext - no edema, pulses 2+ b/l Discharge Data Allergies Allergy/AdvReac Type Severity Reaction Status Date / Time No Known Allergies Allergy Verified 12/04/21 14:38 Consultations 1. [facility] 2. [facility] 3. PT, OT Procedures Performed Operation Date: 12/05/21 16:30 Actual Procedures Esophagogastroduodenoscopy - Yimi Baird MD - LA Grade B reflux esophagitis. - Z-line regular, 36 cm from the incisors. - 2 cm hiatal hernia. - Non-bleeding gastric ulcers with no stigmata of bleeding. - Normal examined duodenum. - No specimens collected. 3 units PRBCs IV Venofer x 3 infusions Ordered Studies Chest X-Ray 12/04/21 11:10 XR chest 1V portable CLINICAL HISTORY: Chest Pain. COMPARISON STUDY: No previous studies for comparison. TECHNIQUE: 1 view of the chest FINDINGS: Single frontal view of the chest demonstrates the cardiomediastinal silhouette to be within normal limits. The lungs are clear of alveolar opacities. There is no evidence for pleural effusion. There is no evidence for vascular congestion. There is no acute osseous pathology. IMPRESSION: 1. No acute cardiopulmonary disease. ACT 112: Negative or not required by law. Electronically signed by: Kirill Maldonado M.D. 12/04/2021 11:45 AM Abdomen/Pelvis CT 12/04/21 11:30 CT SCAN OF THE ABDOMEN AND PELVIS WITH IV CONTRAST CLINICAL HISTORY: General is abdominal pain. Anemia. COMPARISON STUDY: No priors. TECHNIQUE: Following the IV administration of 95 cc of Optiray 320, CT scan of the abdomen and pelvis is performed from the lung bases to the proximal femora. Images are reviewed in the axial, sagittal, and coronal planes. IV contrast was administered without complication. A dose lowering technique was utilized adhering to the principles of ALARA. Examination is degraded by motion artifact, as well as by streak artifact from the arms which could not elevated above the abdomen. FINDINGS: Lung bases: The heart is normal in size and without pericardial effusion. The lung bases are clear noting dependent scarring/atelectasis. There is a small hiatal hernia. Circumferential wall thickening is suggested in the distal centimeters. Liver: The contrast-enhanced liver is normal in size, contour, and attenuation. There is no intrahepatic biliary ductal dilatation. The hepatic veins and portal veins are patent. Gallbladder: Unremarkable. Spleen: Normal in size and attenuation. There is a 12 mm splenic artery aneurysm seen on image #88. Pancreas: Moderately atrophic and grossly unremarkable. Adrenal glands: Unremarkable. Kidneys: The contrast enhanced kidneys are atrophic and without hydronephrosis. The kidneys enhance symmetrically. There is a 4.3 cm right renal cyst. Additional subcentimeter cortical hypodensities also likely represent cysts but are too small for definitive characterization. Abdominal vasculature: There is moderate atherosclerotic calcification mild ectasia of the abdominal aorta. Bowel: There is moderate colonic fecal retention. No bowel obstruction is seen. There is mild diverticulosis of the right colon without CT evidence of acute d iverticulitis. A duodenal diverticulum is incidentally noted. The appendix is well-visualized and normal. Peritoneum/retroperitoneum: No retroperitoneal hemorrhage is identified. There is no intraperitoneal free air or abdominal ascites. Lymphadenopathy: None. Pelvic viscera: Evaluation of the pelvis is degraded by streak artifact from a left hip arthroplasty. The bladder, uterus, and adnexa are normal as visualized. Skeletal structures: The skeletal structures are osteopenic. No lytic or blastic lesions are seen. There is mild lumbosacral spondylosis. A left hip arthroplasty is in place. Soft tissue induration overlies the left hip and there is a fluid collection partially visualized around the proximal left femur. IMPRESSION: 1. No acute infectious or inflammatory findings are identified in the abdomen or pelvis. 2. Soft tissue induration overlies the left hip and a fluid collection is partially visualized around the left proximal femur femur. This may represent expected postoperative change and a seroma/hematoma. See report of CT scan of the left hip performed concurrently for detailed findings. 3. The distal esophagus appears circumferentially thick walled. Correlate clinically for evidence of esophagitis. 4. There is a 12 mm splenic artery aneurysm. 5. Additional findings as above. ACT 112: Negative or not required by law. Electronically signed by: William Keen M.D. 12/04/2021 1:[address] 12/04/21 12:25 CT hip LT wo con HISTORY: 81 years-old Female anemia, recent surgery acute pain of the left hip with recent surgery COMPARISON: Pelvis and left hip radiographs 11/18/2021 TECHNIQUE: Multiple axial CT images of the left hip were obtained following the intravenous administration of 95 mL Optiray 320. A dose lowering technique was used consistent with the principals of KEITH. FINDINGS: Calcified uterine fibroids. Moderate fecal retention. No acute intrapelvic abnormality identified. Satisfactory alignment of the left hip total joint arthroplasty. Streak artifact from the hardware limits the study. No definite acute fracture or dislocation is identified. The imaged left hemipelvis also appears intact. There is a peripherally enhancing fluid collection along the posterior margin of the proximal left femur at the level of the lesser trochanter measuring up to 15 x 1.5 x 6.5 cm in transverse, AP and craniocaudal dimensions. IMPRESSION: 1. Unremarkable appearance of the left hip total joint arthroplasty. No dislocation or acute fracture. 2. Indeterminate fluid collection posterior to the proximal left femur, possibly a seroma. ACT 112: Negative or not required by law. The above report was generated using voice recognition software. It may contain grammatical, syntax or spelling errors. Electronically signed by: Leonardo Sarmiento M.D. 12/04/2021 1:41 PM Venous Doppler Study 12/04/21 14:35 US venous doppler LE BI CLINICAL HISTORY: Bilateral leg pain and swelling COMPARISON: None available at the time of this dictation. TECHNIQUE: Bilateral lower extremity real-time compression venous ultrasound with Color Doppler imaging. Utilizing real-time ultrasonic imaging multiple real time high-resolution ultrasonic images with compression and noncompression maneuvers of the deep venous system in addition to color doppler imaging were performed from the common femoral vein through the proximal calf veins. FINDINGS: Currently there is normal compressibility of the deep venous system from the common femoral vein through the proximal calf veins. No current evidence of acute thrombosis is identified. Impression: No evidence of deep venous thrombus. ACT 112: Negative or not required by law. Electronically signed by: Kirill Maldonado M.D. 12/05/2021 7:16 AM Hospital Course (1) Gastric ulcer: Due to concern for upper GI bleeding she was seen by Dr Yimi Baird, [facility]. She underwent EGD 12/05/21 showing 4 gastric ulcers the largest of which was 1cm in size. These were 2nd to recent asa, celebrex, and lovenox use. All of these agents were discontinued. Initially was on PPI drip, then changed to protonix 40mg BID. Following her EGD there was no signs of ongoing GI bleeding. Further, there were no signs of bleeding from the left hip region. She received 3 units of PRBCs in total during the admission. (2) Esophagitis: as seen on EGD. cont PPI twice daily at discharge at the 1-month emmett can lower the PPI to once daily (3) Acute blood loss anemia: 2nd to upper GI bleeding. EGD findings noted above. Although patient has a seroma near the left hip operative site it is NOT felt to represent a hematoma. s/p 3 units PRBCs in total while here. s/p 3 infusions of IV venofer while here. Lowest hemoglobin 4.9. Discharge hemoglobin 10.5. Pt's vitamin B12 level was low-normal at 322. Recommend vitamin B12 1000mcg po daily for at least 6 months but preferably 1 year. Folate level was wnl. Cont protonix 40mg BID at discharge. (4) Prerenal azotemia: Severe, with BUN nearly 100 and Cr just over 1 on day of presentation. Resolved s/p PRBCs & IV fluids. Was likely 2nd upper GI bleeding. BUN & Cr were normal by discharge. (5) Tachycardia: Resolved. Was likely due to severe acute blood loss anemia/upper GI bleeding. Telemetry was normal during her stay. (6) S/P hip hemiarthroplasty: Left hip fracture s/p ORIF 11/19/21 - Dr Ricco Ramirez - [facility]. Overall her operative site remains stable. Mild left hip seroma was seen on CT at time of admission - felt not to be the cause of her acute blood loss anemia (ie - not a hematoma). She should f/u with [facility] within a couple of weeks of discharge. (7) Seroma: left hip region. see above. no Rx needed. (8) Dementia: advanced, with superimposed acute encephalopathy. see below. (9) Rheumatoid arthritis: Her sulfasalazine was recently held in the midst of her COVID infection, left hip fracture, etc. At this time will resume the sulfasalazine at previous dosing of 1000mg BID. Follows with Dr Hardy Kimball, [facility]. (10) HTN (hypertension): holding all anti-hypertensives at time of discharge. BPs have continued to be controlled w/o them. (11) COVID: recently tested + for such during her hip fracture admission in late October. was asymptomatic for COVID during that admission. she did not require airborne isolation during this admission and had no symptoms/signs of any COVID infection. (12) Acute encephalopathy: METABOLIC - likely from UTI. TOXIC - 2nd to AM dose of seroquel. With holding her AM seroquel and treating her UTI her mental status seemed to improve. She was cooperative, happy, smiling and calm in the 48 hours leading up to discharge. cont abx for UTI. cont to hold AM seroquel but continue HS seroquel as previous. (13) UTI (urinary tract infection): 2nd enterococcus and a gram negative landy (GNR unable to be identified). Received IV unasyn for such, then changed to PO Augmentin on 12/09/21. Her leukocytosis resolved. She will complete 5 more days of Augmentin post-discharge. (14) Constipation: improved s/p dulcolax suppos, followed by senna + miralax continue this regimen at rehab (15) DVT prophylaxis: Recommend heparin SC 5000 units BID x 2 additional weeks post-discharge in light of recent left hip fracture ORIF. (16) Hypokalemia: replaced/resolved prior to discharge Total Time Total Time Spent Total Time Spent (In Minutes): 45 Discharge Plan Discharge Items Patient Disposition: Transfer Inpatient Rehab Fac Reason For Visit: ACUTE BLOOD LOSS ANEMIA Discharge Diagnosis: 1. acute blood loss anemia - lowest hemoglobin 4.9; s/p 3 units PRBCs while here. s/p 3 IV iron infusions. Discharge hemoglobin = 10.5. Anemia due to #2 below. 2. upper GI bleeding - due to several gastric ulcers. 3. gastric ulcers. 4. esophagitis. 5. urinary tract infection. 6. advanced dementia. 7. encephalopathy - multifactorial - seems improved. 8. recent left hip fracture s/p ORIF on 11/19/21 (Dr Ricoc Ramirez). 9. small left hip seroma. Activity: Resume your previous activity Activity Comment: hip precautions Left Hip in setting of recent Left Hip fracture s/p ORIF Non-emergency contact: Primary Care Provider and Specialist Call non-emergency contact if: you have any medication questions, your symptoms worsen, your pain is not controlled, your pain is worsening, you have a fever, your wound has increased redness, your wound has increased drainage and your wound pain has increased Follow-up/Referrals: Hardy Kimball MD [Physician] - (patient sees Dr Kimball for rheumatoid arthritis (RA). Please call his office to determine when he wishes to see her for routine RA care. ) Ricco Ramirez MD [Physician] - (2 weeks for recheck of left hip ) [facility] [Primary Care Provider] - Diet: Regular Diet Texture: Easy to Chew Addtl Attending Provider Instructions: Mrs Stratton was hospitalized at [facility] for the problems listed above in "discharge diagnoses." Recommendations - 1. CBC, BMP in 2-3 days for stability. 2. Repeat urine culture at the conclusion of antibiotic course for test of cure. 3. Optifoam dressings to 2 small ulcerations on the left thigh - change every 2 days and prn. 4. Please follow any prior instructions regarding the left hip from [facility]. Surgery date was 11/19/21. 5. Follow-up appointments - see separate section. 6. NO NSAIDS - avoid aspirin, motrin, ibuprofen, naprosyn, alleve, celebrex. 7. STOP lovenox. 8. DVT prophylaxis - heparin 5000 units subcutaneous twice daily x 14 days. 9. Protonix 40mg twice daily x 1 month. THEN - change to once daily thereafter. Pending Studies at Discharge: No Stand-Alone Forms: My [facility] Skilled Items Patient informed of condition?: No DNR: Yes Discharge Level of Care: Acute rehab Communicable Disease: No Discharge Prognosis: Stable Lines: Peripheral IV Urinary Catheter: No Medications and DC Order Prescriptions: New sennosides [Senokot] 8.6 mg Tablet 17.2 mg PO QAM Qty: 60 RF: 0 polyethylene glycol 3350 [Miralax] 17 gram Powder In Packet 17 g PO DAILY Qty: 1 RF: 0 pantoprazole 40 mg Tablet,Delayed Release (Dr/Ec) 40 mg PO BID Qty: 60 RF: 0 heparin, porcine (PF) 5,000 unit/0.5 mL Syringe 5,000 unit subcut Q12 14 Days Qty: 28 RF: 0 cyanocobalamin (vitamin B-12) 1,000 mcg capsule 1,000 mcg PO DAILY Qty: 30 RF: 5 sulfasalazine 500 mg tablet 1 g PO BID Qty: 120 RF: 2 amoxicillin-pot clavulanate 875-125 mg tablet 1 tab PO BID 5 Days Qty: 10 RF: 0 Lactinex 1 million cell tablet,chewable 1 tab PO BID 7 Days Qty: 14 RF: 0 Continued atorvastatin 10 mg tablet 10 mg PO DAILY RF: 0 venlafaxine 150 mg capsule,extended release 24hr 150 mg PO DAILY Qty: 90 RF: 3 Nuplazid 10 mg tablet 10 mg PO DAILY Qty: 90 RF: 1 rivastigmine tartrate 1.5 mg capsule 1.5 mg PO BID 90 Days Qty: 180 RF: 1 Ensure High Protein Liquid 1 ea PO DAILY Qty: 5688 RF: 6 memantine 28 mg capsule,sprinkle,ER 24hr 28 mg PO HS RF: 0 folic acid 1 mg tablet 1 mg PO DAILY RF: 0 mirtazapine 15 mg tablet 15 mg PO HS RF: 0 quetiapine 200 mg tablet 200 mg PO HS RF: 0 Changed acetaminophen 500 mg capsule 1,000 mg PO Q8H 7 Days Qty: 42 RF: 0 quetiapine 50 mg tablet extended release 24 hr 50 mg PO QAM PRN (Reason: Agitation) Qty: 30 RF: 0 bisacodyl 10 MG suppository 10 mg IA DAILY PRN (Reason: Unknown) Qty: 1 RF: 0 Discontinued losartan-hydrochlorothiazide 50-12.5 mg tablet 1 tab PO DAILY PRN (Reason: Hypertension) RF: 0 metoprolol succinate 50 mg tablet extended release 24 hr 50 mg PO DAILY RF: 0 aspirin 81 mg tablet,delayed release (DR/EC) 81 mg PO DAILY RF: 0 celecoxib 100 MG capsule 100 mg PO BID RF: 0 docusate sodium 100 MG capsule 100 mg PO BID PRN (Reason: Constipation) RF: 0 enoxaparin 20 MG solution 20 mg PO DAILY RF: 0 hydrochlorothiazide 12.5 MG capsule 12.5 mg PO DAILY RF: 0 amlodipine 5 mg tablet 5 mg PO DAILY PRN (Reason: Unknown) RF: 0 tramadol 50 mg Tablet 100 mg PO Q4H PRN (Reason: Unknown) RF: 0 loratadine 10 MG tablet 10 mg PO DAILY PRN (Reason: Unknown) RF: 0 magnesium hydroxide 30 ML 30 ml PO DAILY PRN (Reason: Unknown) RF: 0 polyethylene glycol 3350 1 PACKET packet 1 packet PO DAILY PRN (Reason: Unknown) RF: 0 tramadol 50 MG tablet 50 mg PO Q4H PRN (Reason: Unknown) RF: 0 Discharge Orders: Discharge Order (Routine); Ordered 12/09/21 Ordered By: Meño Betancourt Admission Data Admit Date/Time: 12/04/21 14:17 Attending Provider: Meño Betancourt Admit Provider: Meño Betancourt [facility] Other Providers: Ricco Ramirez ; Yimi Baird Other Interventions: Discharge Summary Assessment (RN) Last Done: 12/05/21 16:15 Coding Level of Care Code D/C DAY MANAGEMENT >30 MINS Diagnoses Gastric ulcer K25.9 Esophagitis K20.90 Acute blood loss anemia D62 Prerenal azotemia R79.89 Tachycardia R00.0 S/P hip hemiarthroplasty Z96.649 Seroma Dementia F03.90 Rheumatoid arthritis M06.9 HTN (hypertension) I10 COVID U07.1 Acute encephalopathy G93.40 UTI (urinary tract infection) N39.0 Constipation K59.00 DVT prophylaxis Z29.9 Hypokalemia E87.6
== END 2021-12-09 14:49 | DRG 377 ==
LOC: ED 11:06 → 2S 14:17